=== PATIENT | female | born 1985 | race Caucasian/White ===

== ENCOUNTER 2022-02-24 16:48 | Emergency (ER) | payer MEDICAID ==
[~2022-02-24 16:48] MED LIST: ACET325T38 PO; ACHD5005 PO; CALC500T7 PO; CPR500T PO; DCS100C PO; FRS325T PO; IBP600T1 PO; Ibuprofen PO; LBT200T PO; NITR-65 PO; OXYC-12 PO; OXYC1TAB87 PO; PREN1TAB39 PO; PRM25T PO; SILV25CR TP
[2022-02-24] MEDS ORDERED: KETOROLAC 30 MG/ML VIAL IVP ONE (17:15)
[2022-02-24] MEDS ORDERED: fentaNYL INJ 100 MCG/2 ML AMP IVP ONE (17:15)
--- NOTE | 2022-02-24 17:15 | ED Cardiac General ---
History of Present Illness General Chief Complaint: Chest Pain Stated Complaint: CHEST PAIN,N/V,ABD PAIN Source: patient Exam Limitations: no limitations History of Present Illness Date Seen by Provider: Feb 24, 2022 Time Seen by Provider: 17:14 ASA po POT ROOM TAPPER: No Allergies and Home Medications Allergies Coded Allergies: No Known Drug Allergies (Verified , 12/13/07) Patient Home Medication List Home Medication List Reviewed: Yes Calcium Carbonate (Tums) 200 Mg Tab.chew, 200 MG PO Q4H, (Reported) Entered as Reported by: LASHAUN BRAVO on 03/31/132048 Docusate Sodium (Colace) 100 Mg Cap, 100 MG PO BID Prescribed by: SKYLER PADILLA on 10/13/13 09 Ferrous Sulfate (Feosol Tab) 325 Mg Tab, 325 MG PO DAILY@0700 Prescribed by: SKYLER PADILLA on 10/13/13 09 Labetalol Hcl (Labetolol) 200 Mg Tab, 200 MG PO TID Prescribed by: RAMYA PATTON on 10/23/13 134 Lisinopril/Hydrochlorothiazide (Lisinopril-Hctz 10-12.5 mg Tab) 10 Mg-12.5 Mg Tablet, 1 EACH PO DAILY Prescribed by: DANNIELLE HOGAN on 02/24/222045 Metronidazole (Metronidazole) 500 Mg Tablet, 500 MG PO BID Prescribed by: DANNIELLE HOGAN on 02/24/222045 Oxycodone Hcl/Acetaminophen (Percocet 5-325 Mg Tablet) 1 Each Tablet, 1-2 EACH PO q4-6 hr PRN for PAIN Prescribed by: RAMYA PATTON on 10/23/13 134 Vits W-Ca,Fe,Fa(<1MG) () 1 Each Tablet, 1 EACH PO DAILY, (Reported) Entered as Reported by: MELODY DUARTE on 06/03/11 0945 [Ibuprofen] 600 MG TAB, 600 MG PO Q6H PRN for PAIN Prescribed by: SKYLER PADILLA on 10/13/13 0940 Past Wvnzlcl-Hqucrg-Ivzjgi Hx Patient Social History Tobacco Use?: Yes Substance use?: No Alcohol Use?: Yes Pt feels they are or have been: No Immunizations Up To Date Tetanus Booster (TDap): Less than 5yrs Influenza Vaccine Up-to-Date: No; Not Current First/Initial COVID19 Vaccinat: YES Second COVID19 Vaccination Lakhwinder: YES Past Medical History Surgery/Hospitalization HX: SUZANNA, APPY, C-SECTIONS Reproductive Disorders: No Adverse Reaction/Blood Tranf: No Family Medical History Completed stroke 19 FATHER (PGF) Hypertension 19 FATHER No Family History of: AIDS Abdominal aortic aneurysm Georgi's disease Alcoholism Alzheimer's disease Aphasia Arthritis Asthma Cancer of mouth Cardiovascular disease Cataracts Colon cancer Congenital disease Congenital heart disease Coronary thrombosis Cystic fibrosis Deafness or hearing loss Dementia Diabetes mellitus Drug abuse Dysphasia Fibrocystic disease of breast Gastroenteritis Glaucoma Headache disorder Hypercholesterolemia Infertility Kidney disease Myocardial infarction Neoplasm Osteoporosis Parkinson's disease Prostate cancer Psychosocial problem Respiratory disorder Seizure disorder Severe allergy Thyroid disease Tuberculosis Visual disorder Physical Exam Vital Signs Vital Signs - First Documented 02/24/22 17:00 Temp 37.0 Pulse 68 Resp 18 B/P (MAP) 195/116 (142) Capillary Refill : Height, Weight, BMI Height: 4'9.00" Weight: 170lbs. 8.0oz. 77.470011zh; BMI Method:Stated Progress/Results/Core Measures Results/Orders Lab Results Laboratory Tests Test 02/24/22 17:02 02/24/22 19:55 Range/Units White Blood Count 11.6 H 4.3-11.0 10^3/uL Red Blood Count 3.31 L 3.80-5.11 10^6/uL Hemoglobin 12.8 11.5-16.0 g/dL Hematocrit 36 35-52 % Mean Corpuscular Volume 107 H 80-99 fL Mean Corpuscular Hemoglobin 39 H 25-34 pg Mean Corpuscular Hemoglobin Concent 36 32-36 g/dL Red Cell Distribution Width 13.6 10.0-14.5 % Platelet Count 296 130-400 10^3/uL Mean Platelet Volume 10.6 9.0-12.2 fL Immature Granulocyte % (Auto) 0 % Neutrophils (%) (Auto) 66 42-75 % Lymphocytes (%) (Auto) 25 12-44 % Monocytes (%) (Auto) 8 0-12 % Eosinophils (%) (Auto) 1 0-10 % Basophils (%) (Auto) 0 0-10 % Neutrophils # (Auto) 7.6 1.8-7.8 10^3/uL Lymphocytes # (Auto) 2.9 1.0-4.0 10^3/uL Monocytes # (Auto) 0.9 0.0-1.0 10^3/uL Eosinophils # (Auto) 0.1 0.0-0.3 10^3/uL Basophils # (Auto) 0.0 0.0-0.1 10^3/uL Immature Granulocyte # (Auto) 0.0 0.0-0.1 10^3/uL D-Dimer 0.36 0.00-0.49 UG/ML Sodium Level 141 135-145 MMOL/L Potassium Level 2.9 L 3.6-5.0 MMOL/L Chloride Level 106 98-107 MMOL/L Carbon Dioxide Level 22 21-32 MMOL/L Anion Gap 13 5-14 MMOL/L Blood Urea Nitrogen 8 7-18 MG/DL Creatinine 0.69 0.60-1.30 MG/DL Estimat Glomerular Filtration Rate 115 BUN/Creatinine Ratio 12 Glucose Level 111 H 70-105 MG/DL Calcium Level 8.0 L 8.5-10.1 MG/DL Corrected Calcium 8.2 L 8.5-10.1 MG/DL Total Bilirubin 0.6 0.1-1.0 MG/DL Aspartate Amino Transf (AST/SGOT) 19 5-34 U/L Alanine Aminotransferase (ALT/SGPT) 12 0-55 U/L Alkaline Phosphatase 43 40-136 U/L Total Creatine Kinase 35 29-168 U/L Creatine Kinase MB 0.4 <6.6 NG/ML Troponin I 0.030 H < 0.028 <0.028 NG/ML Total Protein 6.1 L 6.4-8.2 GM/DL Albumin 3.7 3.2-4.5 GM/DL Lipase 9 8-78 U/L My Orders Orders - DANNIELLE HOGAN APRN Ketorolac Injection (Toradol Injection) (02/24/22 17:15) Fentanyl Inj (Sublimaze Injection) (02/24/22 17:15) Cbc With Automated Diff (02/24/22 17:13) Comprehensive Metabolic Panel (02/24/22 17:13) Troponin I Rg (02/24/22 17:13) Fibrin Degradation Products (02/24/22 17:13) Lipase (02/24/22 17:13) Creatine Kinase (02/24/22 17:13) Creatine Kinase Mb (02/24/22 17:13) Chest 1 View, Ap/Pa Only (02/24/22 17:29) Nitroglycerin 0.4 Mg Btl 25's (Nitrostat (02/24/22 18:15) Aspirin Chewable Tablet (Baby Aspirin Ch (02/24/22 18:15) Potassium Cl 10meq/50ml Ivpb (Kcl 10 Meq (02/24/22 18:45) Ns Iv 1000 Ml (Sodium Chloride 0.9%) (02/24/22 18:45) Metoprolol Tartrate Injection (Lopressor (02/24/22 18:45) Hydromorphone Injection (Dilaudid Inject (02/24/22 18:45) Ct Abdomen/Pelvis W (02/24/22 18:37) Potassium Chloride (Tablet) (K Dur Table (02/24/22 18:45) Ondansetron Injection (Zofran Injectio (02/24/22 18:45) Iohexol Injection (Omnipaque 350 Mg/Ml 1 (02/24/22 18:45) Received Contrast (Hold Metformin- Contr (02/24/22 18:45) Ns (Ivpb) (Sodium Chloride 0.9% Ivpb Bag (02/24/22 18:45) Metronidazole Tablet (Flagyl Tablet) (02/24/22 19:30) Hydrocodone/Apap 5/325 Tablet (Lortab 5 (02/24/22 19:30) Troponin I Rg (02/24/22 19:17) Clonidine Tablet (Catapres Tablet) (02/24/22 20:30) Rx-Hydrocodone/Apap 5-325 Mg (Rx-Vicodin (02/24/22 21:00) Medications Given in ED Vital Signs/I&O 02/24/22 02/24/22 17:00 21:05 Temp 37.0 37.0 Pulse 68 75 Resp 18 18 B/P (MAP) 195/116 (142) 169/98 02/25/22 00:00 Intake Total 1000 ml Balance 1000 ml Departure Impression Primary Impression: Colitis Additional Impression: Hypertension Departure-Patient Inst. Decision time for Depature: 20:42 Referrals: NO,LOCAL PHYSICIAN (PCP/Family) Primary Care Physician Patient Instructions: Colitis (DC), High Blood Pressure ED Add. Discharge Instructions: Plan: 1. Follow up with [facility] as directed. Call first thing in the morning to schedule urgent removal of IUD. 2. Take Flagyl as directed and complete full course. 3. May take Ibuprofen 600mg by mouth every 6 hours as needed for pain and comfort. 4. Take Lortab 5/325mg by mouth every 6 hours for severe pain. 5. Return to ER for any new, concerning, or worsening symptoms. All discharge instructions reviewed with patient and/or family. Voiced understanding. Scripts Hydrocodone/Acetaminophen (Hydrocodone-Acetamin 5-325 mg) 5 Mg-325 Mg Tablet 1 TAB PO Q6H PRN for PAIN-MODERATE (5-7), #10 TAB 0 Refills Prov: DANNIELLE HOGAN TRIM INSTALLER 02/25/22 Lisinopril/Hydrochlorothiazide (Lisinopril-Hctz 10-12.5 mg Tab) 10 Mg-12.5 Mg Tablet 1 EACH PO DAILY for 30 Days, #30 TAB Prov: DANNIELLE HOGAN TRIM INSTALLER 02/24/22 Metronidazole (Metronidazole) 500 Mg Tablet 500 MG PO BID for 7 Days, #14 TAB 0 Refills Prov: DANNIELLE HOGAN TRIM INSTALLER 02/24/22 DANNIELLE HOGAN TRIM INSTALLER Feb 24, 2022 17:15
[2022-02-24 17:29] LABS: BASOPHILS % (AUTO) 0 % (0-10); EOSINOPHILS # (AUTO) 0.1 10^3/uL (0.0-0.3); EOSINOPHILS % (AUTO) 1 % (0-10); HEMATOCRIT 36 % (35-52); HEMOGLOBIN 12.8 g/dL (11.5-16.0); LYMPHOCYTES # (AUTO) 2.9 10^3/uL (1.0-4.0); LYMPHOCYTES % (AUTO) 25 % (12-44); MEAN CORPUSCULAR HEMOGLOBIN 39 pg (25-34); MEAN CORPUSCULAR HGB CONC 36 g/dL (32-36); MEAN CORPUSCULAR VOLUME 107 fL (80-99); MEAN PLATELET VOLUME 10.6 fL (9.0-12.2); MONOCYTES # (AUTO) 0.9 10^3/uL (0.0-1.0); MONOCYTES % (AUTO) 8 % (0-12); NEUTROPHILS # (AUTO) 7.6 10^3/uL (1.8-7.8); NEUTROPHILS % (AUTO) 66 % (42-75); PLATELET COUNT 296 10^3/uL (130-400); WHITE BLOOD COUNT 11.6 10^3/uL (4.3-11.0)
[2022-02-24 17:40] LABS: ALBUMIN 3.7 GM/DL (3.2-4.5)
[2022-02-24 17:41] LABS: POTASSIUM 2.9 MMOL/L (3.6-5.0)
[2022-02-24 17:43] LABS: TOTAL PROTEIN 6.1 GM/DL (6.4-8.2)
[2022-02-24 17:45] LABS: BILIRUBIN,TOTAL 0.6 MG/DL (0.1-1.0)
[2022-02-24 17:46] LABS: CREATININE SERUM 0.69 MG/DL (0.60-1.30)
--- NOTE | 2022-02-24 17:55 | Diagnostic Imaging Report ---
CHEST 1 VIEW, AP/PA ONLY Indication: Chest pain. Comparison: None available. Findings: No focal airspace disease in the visualized lungs. No pleural effusion or pneumothorax. Normal cardiomediastinal silhouette. Impression: 1. No acute cardiopulmonary process by portable radiography. Dictated by: Dictated on workstation # [id number]
[2022-02-24 17:57] LABS: CREATINE KINASE MB 0.4 NG/ML (<6.6)
[2022-02-24] MEDS ORDERED: NITROGLYCERIN 0.4 MG SL TABS BTL 25'S SL PRN (18:15)
[2022-02-24] MEDS ORDERED: ASPIRIN 81 MG CHEW (CHILDREN'S ASA) PO ONE (18:15)
[2022-02-24] MEDS ORDERED: IOHEXOL 350 MG/ML 100 ML (OMNIPAQUE 350) VIAL IV ONE (18:45)
[2022-02-24] MEDS ORDERED: ONDANSETRON 4 MG/2 ML (SDV) Z0FRAN IVP ONE (18:45)
[2022-02-24] MEDS ORDERED: HOLD METFORMIN - RECEIVED CONTRAST 20 ML VIAL IV SCH (18:45)
[2022-02-24] MEDS ORDERED: meTOprolol 5 MG/5 ML (LOPRESSOR) VIAL IV ONE (18:45)
[2022-02-24] MEDS ORDERED: HYDROmorphone 2 MG/ML VIAL (DILAUDID) IV ONE (18:45)
[2022-02-24] MEDS ORDERED: NS IV 1000 ML 1,000 ML IV ONE (18:45)
[2022-02-24] MEDS ORDERED: KCL 20 MEQ TAB (K-DUR) PO ONE (18:45)
[2022-02-24] MEDS ORDERED: NS 100 ML (IVPB) BAG IV ONE (18:45)
[2022-02-24] MEDS ORDERED: POTASSIUM CL 10MEQ/50ML IVPB 50 ML IV ONE (18:45)
--- NOTE | 2022-02-24 19:04 | Diagnostic Imaging Report ---
EXAMINATION: CT abdomen and pelvis with intravenous contrast. TECHNIQUE: Multiple contiguous axial images were obtained through the abdomen and pelvis after the uneventful administration of intravenous contrast. All CT scans use one or more of the following dose optimizing techniques: automated exposure control, MA and/or KvP adjustment based on patient size and exam type or iterative reconstruction. HISTORY: RUQ pain COMPARISON: None available. FINDINGS: Lung bases: The lung bases are clear. Solid organs: The liver is normal without focal lesion. The gallbladder is surgically absent. There is no biliary ductal dilation. Pancreas is normal. Spleen is normal. Adrenal glands are normal. There are left renal cysts which require no follow-up. Bowel: The stomach and small bowel are normal without obstruction. There is wall thickening of the right hemicolon. No findings of acute appendicitis. Peritoneum: There is no intraperitoneal free fluid or free air. No suspicious lymphadenopathy. Vasculature: Normal without aneurysm. Musculoskeletal: No suspicious osseous lesion or compression fracture. Pelvis: An IUD is present within the lower uterine body and cervix. The urinary bladder is normal. IMPRESSION: 1. Wall thickening of the right hemicolon which could be seen with infectious or inflammatory colitis. 2. IUD within the uterus appears to be within the lower uterine body and cervix. Consider correlation with ultrasound for confirmation of appropriate positioning. Dictated by: Dictated on workstation # [id number]
[2022-02-24] MEDS ORDERED: metroNIDAZOLE 500 MG (FLAGYL) TAB PO ONE (19:30)
[2022-02-24] MEDS ORDERED: HYDROcodone/APAP 5 MG/325 MG (LORTAB) TAB PO ONE (19:30)
[2022-02-24] MEDS ORDERED: cloNIDine 0.1 MG (CATAPRES) TAB PO ONE (20:30)
[2022-02-24] MEDS ORDERED: LISI1TAB44 PO (20:46)
[2022-02-24] MEDS ORDERED: METR-145 PO (20:46)
[2022-02-24 21:05] VITALS: BP 169/98
[2022-02-25] MEDS ORDERED: ACHD5005 PO (12:07)
== END 2022-02-24 21:07 | disposition home or self-care (01) ==
LOC: EDUNIT# 16:48 → ER 16:50
DX: K52.9 Noninfective gastroenteritis and colitis, unspecified (principal); I10 Essential (primary) hypertension; Z90.49 Acquired absence of other specified parts of digestive tract
CPT/HCPCS: 36415; 71045; 74177; 80053; 82550; 82553; 83690; 84484; 85025; 85379; 93005

== ENCOUNTER 2022-04-01 10:14 | Emergency (ER) | payer MEDICAID ==
[~2022-04-01] VITALS: Ht 145 cm; Wt 63.5 kg
[~2022-04-01 10:14] MED LIST changes: +LISI1TAB44 PO; +METR-145 PO
[2022-04-01] MEDS ORDERED: FAMOTIDINE 20MG/2ML IV (PEPCID) IV STA (11:08)
[2022-04-01 11:15] LABS: BASOPHILS # (AUTO) 0.1 10^3/uL (0.0-0.1); BASOPHILS % (AUTO) 0 % (0-10); EOSINOPHILS % (AUTO) 0 % (0-10); HEMATOCRIT 40 % (35-52); HEMOGLOBIN 13.9 g/dL (11.5-16.0); LYMPHOCYTES # (AUTO) 2.9 10^3/uL (1.0-4.0); LYMPHOCYTES % (AUTO) 14 % (12-44); MEAN CORPUSCULAR HEMOGLOBIN 38 pg (25-34); MEAN CORPUSCULAR HGB CONC 35 g/dL (32-36); MEAN CORPUSCULAR VOLUME 109 fL (80-99); MEAN PLATELET VOLUME 10.1 fL (9.0-12.2); MONOCYTES % (AUTO) 5 % (0-12); NEUTROPHILS # (AUTO) 16.8 10^3/uL (1.8-7.8); NEUTROPHILS % (AUTO) 81 % (42-75); PLATELET COUNT 601 10^3/uL (130-400); WHITE BLOOD COUNT 20.9 10^3/uL (4.3-11.0)
[2022-04-01] MEDS ORDERED: ONDANSETRON 4 MG/2 ML (SDV) Z0FRAN IVP ONE (11:15)
[2022-04-01] MEDS ORDERED: NS IV 1000 ML 1,000 ML IV SCH (11:15)
--- NOTE | 2022-04-01 11:19 | ED Abdominal Pain ---
General Chief Complaint: Abdominal/GI Problems Stated Complaint: NAUSEA | SOA | Nursing Triage Note: PT AMBULATORY TO ER. PT C/O N/V AND ABD PAIN ONSET 3 DAYS AGO. REPORTS SIMILAR S/S IN THE PAST AND WAS DX WITH COLITIS. PT REPORTS SOB ONSET THIS AM. 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 If there is a discrepancy in the x-ray read by the ER physician, the patient will be called back by hospital staff with the correct radioligist report. PMH of HTN, is here with complaints of abdominal pain, mainly in her right flank and right upper quadrant, and epigastric area, which began approximately 3 days ago with worsening intensity. Patient has associated nausea and vomiting along with that and has not had anything to eat for the past 3 days except for water. Denies fever, chills, URI symptoms, chest pain, palpitations, shortness of breath, diarrhea. Allergies and Home Medications Allergies Coded Allergies: No Known Drug Allergies (Verified , 12/13/07) Patient Home Medication List Home Medication List Reviewed: Yes Calcium Carbonate (Tums) 200 Mg Tab.chew, 200 MG PO Q4H, (Reported) Entered as Reported by: LASHAUN BRAVO on 03/31/132048 Docusate Sodium (Colace) 100 Mg Cap, 100 MG PO BID Prescribed by: SKYLER PADILLA on 10/13/13 09 Ferrous Sulfate (Feosol Tab) 325 Mg Tab, 325 MG PO DAILY@0700 Prescribed by: SKYLER PADILLA on 10/13/13 0940 Hydrocodone/Acetaminophen (Hydrocodone-Acetamin 5-325 mg) 5 Mg-325 Mg Tablet, 1 TAB PO Q6H PRN for PAIN-MODERATE (5-7) Prescribed by: DANNIELLE HOGAN on 02/25/22 1208 Labetalol Hcl (Labetolol) 200 Mg Tab, 200 MG PO TID Prescribed by: RAMYA PATTON on 10/23/13 1349 Lisinopril/Hydrochlorothiazide (Lisinopril-Hctz 10-12.5 mg Tab) 10 Mg-12.5 Mg Tablet, 1 EACH PO DAILY Prescribed by: DANNIELLE HOGAN on 02/24/22 204 Metronidazole (Metronidazole) 500 Mg Tablet, 500 MG PO BID Prescribed by: DANNIELLE HOGAN on 02/24/222045 Oxycodone Hcl/Acetaminophen (Percocet 5-325 Mg Tablet) 1 Each Tablet, 1-2 EACH PO q4-6 hr PRN for PAIN Prescribed by: RAMYA PATTON on 10/23/13 1349 Vits W-Ca,Fe,Fa(<1MG) () 1 Each Tablet, 1 EACH PO DAILY, (Reported) Entered as Reported by: MELODY DUARTE on 06/03/11 0945 [Ibuprofen] 600 MG TAB, 600 MG PO Q6H PRN for PAIN Prescribed by: SKYLER PADILLA on 10/13/13 0940 Review of Systems Review of Systems Constitutional: no symptoms reported EENTM: No Symptoms Reported Respiratory: No Symptoms Reported Cardiovascular: No Symptoms Reported Gastrointestinal: Abdominal Pain Genitourinary: No Symptoms Reported Musculoskeletal: no symptoms reported Skin: no symptoms reported Psychiatric/Neurological: No Symptoms Reported Endocrine: No Symptoms Reported Hematologic/Lymphatic: No Symptoms Reported Past Utrqsxx-Udqyfn-Svskgi Hx Patient Social History Tobacco type used: Cigarettes Smoking Status: Current Everyday Smoker Use of E-Cig and/or Vaping dev: No Substance use?: No Alcohol Use?: No Pt feels they are or have been: No Immunizations Up To Date Tetanus Booster (TDap): Less than 5yrs First/Initial COVID19 Vaccinat: RECEIVED, UNK WHEN Second COVID19 Vaccination Lakhwinder: RECEIVED, UNK WHEN COVID19 Vaccine Medicare Biller: UNK Past Medical History Surgery/Hospitalization HX: SUZANNA, APPY, C-SECTIONS Last Menstrual Period: Feb 18, 2022 Reproductive Disorders: No Adverse Reaction/Blood Tranf: No Family Medical History Completed stroke 19 FATHER (PGF) Hypertension 19 FATHER No Family History of: AIDS Abdominal aortic aneurysm Georgi's disease Alcoholism Alzheimer's disease Aphasia Arthritis Asthma Cancer of mouth Cardiovascular disease Cataracts Colon cancer Congenital disease Congenital heart disease Coronary thrombosis Cystic fibrosis Deafness or hearing loss Dementia Diabetes mellitus Drug abuse Dysphasia Fibrocystic disease of breast Gastroenteritis Glaucoma Headache disorder Hypercholesterolemia Infertility Kidney disease Myocardial infarction Neoplasm Osteoporosis Parkinson's disease Prostate cancer Psychosocial problem Respiratory disorder Seizure disorder Severe allergy Thyroid disease Tuberculosis Visual disorder Physical Exam Vital Signs Vital Signs - First Documented 04/01/22 10:18 Temp 36.4 Pulse 107 Resp 18 B/P (MAP) 127/94 (105) Pulse Ox 100 O2 Delivery Room Air Capillary Refill : Height/Weight/BMI Height: 4'9.00" Weight: 170lbs. 8.0oz. 77.692946kn; 30.00 BMI Method:Stated General Appearance: WD/WN, no apparent distress HEENT: PERRL/EOMI Neck: full range of motion Respiratory: chest non-tender, lungs clear, normal breath sounds, no respiratory distress Cardiovascular: regular rate, rhythm, no edema Gastrointestinal: normal bowel sounds, soft, no organomegaly, tenderness (Tenderness in the epigastrium, right upper quadrant, right CVA region) Extremities: normal range of motion Back: CVA tenderness (R) Neurologic/Psychiatric: alert, normal mood/affect, oriented x 3 Skin: normal color Lymphatic: no adenopathy Focused Exam Lactate Level 04/01/22 12:16: Lactic Acid Level 1.04 Lactic Acid Level Laboratory Tests Test 04/01/22 12:16 Lactic Acid Level 1.04 MMOL/L (0.50-2.00) Progress/Results/Core Measures Results/Orders Lab Results Laboratory Tests Test 04/01/22 10:36 04/01/22 11:30 04/01/22 12:16 Range/Units White Blood Count 20.9 H 4.3-11.0 10^3/uL Red Blood Count 3.66 L 3.80-5.11 10^6/uL Hemoglobin 13.9 11.5-16.0 g/dL Hematocrit 40 35-52 % Mean Corpuscular Volume 109 H 80-99 fL Mean Corpuscular Hemoglobin 38 H 25-34 pg Mean Corpuscular Hemoglobin Concent 35 32-36 g/dL Red Cell Distribution Width 13.2 10.0-14.5 % Platelet Count 601 H 130-400 10^3/uL Mean Platelet Volume 10.1 9.0-12.2 fL Immature Granulocyte % (Auto) 0 % Neutrophils (%) (Auto) 81 H 42-75 % Lymphocytes (%) (Auto) 14 12-44 % Monocytes (%) (Auto) 5 0-12 % Eosinophils (%) (Auto) 0 0-10 % Basophils (%) (Auto) 0 0-10 % Neutrophils # (Auto) 16.8 H 1.8-7.8 10^3/uL Lymphocytes # (Auto) 2.9 1.0-4.0 10^3/uL Monocytes # (Auto) 1.0 0.0-1.0 10^3/uL Eosinophils # (Auto) 0.0 0.0-0.3 10^3/uL Basophils # (Auto) 0.1 0.0-0.1 10^3/uL Immature Granulocyte # (Auto) 0.1 0.0-0.1 10^3/uL Neutrophils % (Manual) 85 % Lymphocytes % (Manual) 12 % Monocytes % (Manual) 3 % Eosinophils % (Manual) 0 % Basophils % (Manual) 0 % Band Neutrophils 0 % Macrocytosis SLIGHT Urine Color YELLOW Urine Clarity CLEAR Urine pH 5.5 5-9 Urine Specific Leslie 1.020 1.016-1.022 Urine Protein NEGATIVE NEGATIVE Urine Glucose (UA) NEGATIVE NEGATIVE Urine Ketones 1+ H NEGATIVE Urine Nitrite NEGATIVE NEGATIVE Urine Bilirubin NEGATIVE NEGATIVE Urine Urobilinogen 0.2 < = 1.0 MG/DL Urine Leukocyte Esterase 1+ H NEGATIVE Urine RBC (Auto) NEGATIVE NEGATIVE Urine RBC RARE /HPF Urine WBC 5-10 H /HPF Urine Squamous Epithelial Cells 5-10 /HPF Urine Crystals NONE /LPF Urine Bacteria MODERATE H /HPF Urine Casts PRESENT /LPF Urine Hyaline Casts 0-2 H /LPF Urine Mucus NEGATIVE /LPF Urine Culture Indicated YES Urine Test NEGATIVE NEGATIVE Sodium Level 137 135-145 MMOL/L Potassium Level 2.9 L 3.6-5.0 MMOL/L Chloride Level 99 98-107 MMOL/L Carbon Dioxide Level 12 L 21-32 MMOL/L Anion Gap 26 H 5-14 MMOL/L Blood Urea Nitrogen 43 H 7-18 MG/DL Creatinine 1.69 H 0.60-1.30 MG/DL Estimat Glomerular Filtration Rate 40 BUN/Creatinine Ratio 25 Glucose Level 100 70-105 MG/DL Calcium Level 9.7 8.5-10.1 MG/DL Corrected Calcium 9.5 8.5-10.1 MG/DL Total Bilirubin 0.7 0.1-1.0 MG/DL Aspartate Amino Transf (AST/SGOT) 24 5-34 U/L Alanine Aminotransferase (ALT/SGPT) 24 0-55 U/L Alkaline Phosphatase 64 40-136 U/L Total Protein 7.8 6.4-8.2 GM/DL Albumin 4.3 3.2-4.5 GM/DL Lipase 19 8-78 U/L Urine Opiates Screen NEGATIVE NEGATIVE Urine Oxycodone Screen NEGATIVE NEGATIVE Urine Methadone Screen NEGATIVE NEGATIVE Urine Propoxyphene Screen NEGATIVE NEGATIVE Urine Barbiturates Screen NEGATIVE NEGATIVE Ur Tricyclic Antidepressants Screen NEGATIVE NEGATIVE Urine Phencyclidine Screen NEGATIVE NEGATIVE Urine Amphetamines Screen NEGATIVE NEGATIVE Urine Methamphetamines Screen NEGATIVE NEGATIVE Urine Benzodiazepines Screen NEGATIVE NEGATIVE Urine Cocaine Screen NEGATIVE NEGATIVE Urine Cannabinoids Screen POSITIVE H NEGATIVE Serum Alcohol < 10 <10 MG/DL Influenza Type A (RT-PCR) Not Detected Not Detecte Influenza Type B (RT-PCR) Not Detected Not Detecte SARS-CoV-2 RNA (RT-PCR) Not Detected Not Detecte Lactic Acid Level 1.04 0.50-2.00 MMOL/L My Orders Orders - LUCINDA HEBERT MD Alcohol (04/01/22 11:06) Cbc With Automated Diff (04/01/22 11:06) Comprehensive Metabolic Panel (04/01/22 11:06) Drug Screen Stat (Urine) (04/01/22 11:06) Hcg,Qualitative Urine (04/01/22 11:06) Lactic Acid Analyzer (04/01/22 11:06) Lipase (04/01/22 11:06) Ua Culture If Indicated (04/01/22 11:06) Ct Abdomen/Pelvis W (04/01/22 11:08) Ed Iv/Invasive Line Start (04/01/22 11:08) Ns Iv 1000 Ml (Sodium Chloride 0.9%) (04/01/22 11:15) Ondansetron Injection (Zofran Injectio (04/01/22 11:15) Famotidine Injection (Pepcid Injection) (04/01/22 11:08) Manual Differential (04/01/22 10:36) Covid 19 Inhouse Test (04/01/22 11:19) Influenza A And B By Pcr (04/01/22 11:19) Ketorolac Injection (Toradol Injection) (04/01/22 11:30) Urine Culture (04/01/22 10:36) Iohexol Injection (Omnipaque 350 Mg/Ml 1 (04/01/22 11:45) Received Contrast (Hold Metformin- Contr (04/01/22 11:45) Ns (Ivpb) (Sodium Chloride 0.9% Ivpb Bag (04/01/22 11:45) Potassium Chloride (Tablet) (K Dur Table (04/01/22 13:00) Oxycodone/Apap 5/325mg Tablet (Percocet (04/01/22 13:00) Medications Given in ED Current Medications Medications Dose Ordered Sig/Fernando Route Start Time Stop Time Status Last Admin Dose Admin Iohexol 100 ml ONCE ONCE IV 04/01/22 11:45 04/01/22 11:46 DC 04/01/22 11:53 73 ML Ketorolac Tromethamine 15 mg ONCE ONCE IVP 04/01/22 11:30 04/01/22 11:31 DC 04/01/22 11:25 15 MG Ondansetron HCl 4 mg ONCE ONCE IVP 04/01/22 11:15 04/01/22 11:16 DC 04/01/22 11:15 4 MG Oxycodone/ Acetaminophen 1 tab ONCE ONCE PO 04/01/22 13:00 04/01/22 13:01 DC 04/01/22 12:55 1 TAB Potassium Chloride 40 meq ONCE ONCE PO 04/01/22 13:00 04/01/22 13:01 DC 04/01/22 12:55 40 MEQ Sodium Chloride 100 ml ONCE ONCE IV 04/01/22 11:45 04/01/22 11:46 DC 04/01/22 11:53 80 ML Vital Signs/I&O 04/01/22 04/01/22 04/01/22 04/01/22 10:18 10:55 11:29 13:26 Temp 36.4 Pulse 107 99 86 97 Resp 18 18 B/P (MAP) 127/94 (105) 128/84 (99) 122/69 (86) 140/81 (100) Pulse Ox 100 99 100 99 O2 Delivery Room Air Room Air Room Air Room Air Blood Pressure Mean: 99 Progress Progress Note : Progress Note 1. NEPHROLITHIASIS, NONOBSTRUCTING & ACUTE CYSTITIS: - CT ABD: Nonobstructing kidney stone - CBC: WBC mildly elevated - UA positive for leukocyte esterase, WBC, bacteria - Zofran iv/ Pepcid 20mg iv/ NS IVF - Toradol for pain/ then later gave one tab Percocet -Advised naproxen every 4 hours for pain with extreme Tylenol every 4 hours breakthrough pain -Prescription for Zofran ODT every 6 hours as needed for nausea and vomiting -Advised adequate hydration -Follow-up with PCP in the next 3 to 5 days -Prescription for nitrofurantoin 100 mg twice daily for 7 days -The patient was seen in the ED, and treated appropriately to presentation at a specific point in time. Patient is informed that there is a possibility that disease and illness can evolve and change in acuity rapidly or slowly after patient is discharged from the ER. Precautionary advice given to the patient for immediate return to ER if symptoms worsen or do not resolve, and to seek emergency care sooner rather than later. Pt also advised on the importance of PCP follow up and compliance with management and follow up plan with PCP and/or specialist, as this is part of the management plan. Pt verbally expressed understanding. 2. DEHYDRATION/ SOLITARIO/ MILD HYPOKALEMIA: -Dehydration and hypokalemia due to vomiting - s, creatinine is 1.69 with BUN of 43 - s. K is 2.9 - NS IVF bolus STAT - Oral potasium repletion - Prescription for oral Prescription 40mEq daily for 2 days. Follow-up with PCP in the next 3 to 5 days for repeat labs to check potassium level. 3. MARIJUANA ABUSE: - UDS is positive for marijuana -Advised to stop using marijuana as this can trigger abdominal pain and make nausea and vomiting worse Departure Impression Primary Impression: Acute cystitis without hematuria Additional Impressions: Nephrolithiasis Hypokalemia Dehydration SOLITARIO (acute kidney injury) Disposition: 01 HOME, SELF-CARE Condition: Improved Departure-Patient Inst. Referrals: HAYDER LEZAMA APRN (PCP) Primary Care Physician [facility]AY[facility] (Family) Primary Care Physician Patient Instructions: Renal Colic (DC), Acute Kidney Injury, High Potassium Diet, Acute Cystitis (DC), Kidney Stone Diet, Why Water Is Important to Health, Dehydration, Adult ED Add. Discharge Instructions: -Advised naproxen every 4 hours for pain with extreme Tylenol every 4 hours breakthrough pain -Prescription for Zofran ODT every 6 hours as needed for nausea and vomiting -Advised adequate hydration -Follow-up with PCP in the next 3 to 5 days - Patient is informed that there is a possibility that disease and illness can evolve and change in acuity rapidly or slowly after patient is discharged from the ER. Precautionary advice given to the patient for immediate return to ER if symptoms worsen or do not resolve, and to seek emergency care sooner rather than later. Pt also advised on the importance of PCP follow up and compliance with management and follow up plan with PCP and/or specialist, as this is part of the management plan. Pt verbally expressed understanding. - Prescription for oral Prescription 40mEq daily for 2 days. Follow-up with PCP in the next 3 to 5 days for repeat labs to check potassium level. -Prescription for nitrofurantoin 100 mg twice daily for 7 days -Advised to stop using marijuana as this can trigger abdominal pain and make nausea and vomiting worse All discharge instructions reviewed with patient and/or family. Voiced underst anding. Scripts Ondansetron (Ondansetron Odt) 4 Mg Tab.rapdis 4 MG SL Q4H PRN for NAUSEA/VOMITING for 3 Days, #12 TAB Prov: LUCINDA HEBERT MD 04/01/22 Potassium Chloride (Potassium Chloride) 20 Meq Tablet.er 40 MEQ PO DAILY for 2 Days, #2 TAB Prov: LUCINDA HEBERT MD 04/01/22 Nitrofurantoin Macrocrystal (Nitrofurantoin) 100 Mg Capsule 100 MG PO Q12H for 7 Days, #14 CAP Prov: LUCINDA HEBERT MD 04/01/22 LUCINDA HEBERT MD Apr 01, 2022 11:19
[2022-04-01 11:20] LABS: ALBUMIN 4.3 GM/DL (3.2-4.5); BILIRUBIN,URINE NEGATIVE (NEGATIVE); CHLORIDE 99 MMOL/L (98-107); CLARITY,URINE CLEAR; COLOR,URINE YELLOW; GLUCOSE, URINE (UA) NEGATIVE (NEGATIVE); HCG,QUALITATIVE URINE NEGATIVE (NEGATIVE); KETONES,URINE 1+ (NEGATIVE); LEUKOCYTE ESTERASE ,URINE 1+ (NEGATIVE); NITRITE,URINE NEGATIVE (NEGATIVE); PH,URINE 5.5 (5-9); POTASSIUM 2.9 MMOL/L (3.6-5.0); PROTEIN,URINE NEGATIVE (NEGATIVE); SODIUM 137 MMOL/L (135-145)
[2022-04-01 11:21] LABS: CALCIUM 9.7 MG/DL (8.5-10.1)
[2022-04-01 11:23] LABS: CARBON DIOXIDE 12 MMOL/L (21-32); GLUCOSE 100 MG/DL (70-105); TOTAL PROTEIN 7.8 GM/DL (6.4-8.2)
[2022-04-01 11:24] LABS: BILIRUBIN,TOTAL 0.7 MG/DL (0.1-1.0)
[2022-04-01 11:26] LABS: ALKALINE PHOSPHATASE 64 U/L (40-136); CREATININE SERUM 1.69 MG/DL (0.60-1.30); GFR ESTIMATED 40
[2022-04-01 11:27] LABS: BUN/CREATININE RATIO 25
[2022-04-01 11:28] LABS: AMPHETAMINE SCREEN, URINE NEGATIVE (NEGATIVE); BARBITURATE SCREEN URINE NEGATIVE (NEGATIVE); BENZODIAZEPINES SCREEN URINE NEGATIVE (NEGATIVE); CANNABINOID SCREEN, URINE POSITIVE (NEGATIVE); COCAINE SCREEN URINE NEGATIVE (NEGATIVE); METHADONE STAT NEGATIVE (NEGATIVE); OPIATE SCREEN URINE NEGATIVE (NEGATIVE); OXYCODONE STAT NEGATIVE (NEGATIVE); PROPOXYPHENE STAT NEGATIVE (NEGATIVE); TRICYCLIC ANTIDEPRESSANTS SCRE NEGATIVE (NEGATIVE)
[2022-04-01 11:29] LABS: ALANINE AMINOTRANSFERASE 24 U/L (0-55)
[2022-04-01 11:30] LABS: LIPASE 19 U/L (8-78)
[2022-04-01] MEDS ORDERED: KETOROLAC 30 MG/ML VIAL IVP ONE (11:30)
[2022-04-01 11:41] LABS: BACTERIA,URINE MODERATE /HPF; HYALINE CASTS, URINE 0-2 /LPF; RBC,URINE RARE /HPF
[2022-04-01] MEDS ORDERED: IOHEXOL 350 MG/ML 100 ML (OMNIPAQUE 350) VIAL IV ONE (11:45)
[2022-04-01] MEDS ORDERED: HOLD METFORMIN - RECEIVED CONTRAST 20 ML VIAL IV SCH (11:45)
[2022-04-01] MEDS ORDERED: NS 100 ML (IVPB) BAG IV ONE (11:45)
[2022-04-01 11:48] LABS: BAND NEUTROPHILS 0 %; BASOPHILS % (MANUAL) 0 %; EOSINOPHILS % (MANUAL) 0 %; LYMPHOCYTES % (MANUAL) 12 %; MONOCYTES % (MANUAL) 3 %; NEUTROPHILS % (MANUAL) 85 %
--- NOTE | 2022-04-01 12:22 | Diagnostic Imaging Report ---
PROCEDURE: CT abdomen and pelvis with contrast. TECHNIQUE: Multiple contiguous axial images were obtained through the abdomen and pelvis after administration of intravenous contrast. Auto Exposure Controls were utilized during the CT exam to meet ALARA standards for radiation dose reduction. All CT scans use one or more of the following dose optimizing techniques: automated exposure control, MA and/or KvP adjustment based on patient size and exam type or iterative reconstruction. INDICATION: Nausea and abdominal pain. Correlation is made with prior CT from 02/24/2022. The lung bases are clear. The liver does show some parenchymal heterogeneity but no discrete mass is identified. Gallbladder surgically absent. There is no biliary ductal dilatation. The pancreas and spleen are unremarkable. No adrenal mass is identified. Kidneys do contain multiple small calcific densities consistent with nonobstructing calculi. Low-attenuation lesions in the left kidney are also noted, suggestive of cysts. No definite ureteral calculi or hydronephrosis is identified. Aorta is nonaneurysmal. The small and large bowel loops are normal caliber. There is no obstruction. Bladder is unremarkable. The uterus does contain IUD. IUD appears to be in similar position to the exam from February, slightly low in the region of the lower uterine segment and cervix. There is no ascites. No inflammatory changes are seen. IMPRESSION: 1. Bilateral nonobstructing nephrolithiasis and left renal cysts. No ureteral calculi or hydronephrosis is detected. Dictated by: Dictated on workstation # [id number]
[2022-04-01] MEDS ORDERED: KCL 20 MEQ TAB (K-DUR) PO ONE (13:00)
[2022-04-01] MEDS ORDERED: oxyCODONE/APAP 5/325MG (PERCOCET 5) TABLET PO ONE (13:00)
[2022-04-01] MEDS ORDERED: NITR100C PO (13:43)
[2022-04-01] MEDS ORDERED: ONDA4TAB11 SL (13:43)
[2022-04-01] MEDS ORDERED: POTA-51 PO (13:43)
[2022-04-01 13:47] VITALS: BP 140/81
== END 2022-04-01 13:47 | disposition home or self-care (01) ==
LOC: EDUNIT# 10:14 → ER 10:16
DX: N30.00 Acute cystitis without hematuria (principal); N20.0 Calculus of kidney; E87.6 Hypokalemia; E86.0 Dehydration; N17.9 Acute kidney failure, unspecified; F17.210 Nicotine dependence, cigarettes, uncomplicated; Z20.822 Contact with and (suspected) exposure to COVID-19
CPT/HCPCS: 36415; 74177; 80053; 80306; 80320; 81000; 83605; 83690; 84703; 85007; 85027; 87077; 87088; 87636

== ENCOUNTER 2022-04-04 22:11 | Inpatient (IN) | payer MEDICAID ==
[~2022-04-04] VITALS: Ht 147.3 cm; Wt 73.5 kg
[~2022-04-04 22:11] MED LIST changes: +NITR100C PO; +ONDA4TAB11 SL; +POTA-51 PO
--- NOTE | 2022-04-04 22:36 | ED General ---
General Chief Complaint: COVID19 Suspect/Confirmed Stated Complaint: VOMITING/BODYACHES Nursing Triage Note: PT ARRIVAL TO ER VIA PRIVATE VEHICLE WITH COMPLAINTS OF BODY ACHES, VOMITING, ANXIETY, KIDNEY PAIN, UTI, X2 WEEKS. PATIENT STATES THAT SHE HAS BEEN SEEN HERE TWICE RECENTLY FOR SAME COMPLAINTS. PT DENIES NEGATIVE COVID. PATIENT STATES THAT SHE WAS TOLD SHE HAD A UTI, KIDNEY STONE, AND WAS PUT ON ANTIBIOTICS, TYLENOL AND IBUPROFEN FOR PAIN, AND WAS TOLD TO FOLLOW UP. PATIENT STATES THAT SHE HASN'T HAD TIME TO FOLLOW UP. Source of Information: Patient Exam Limitations: No Limitations History of Present Illness Date Seen by Provider: Apr 04, 2022 Time Seen by Provider: 22:27 Initial Comments Patient is a 36-year-old female who presents the emergency room with a chief complaint of body aches, abdominal pain mid epigastric and lower, nausea vomiting. Patient states that she has not stopped vomiting for 2 days. She was seen in February, labs and CAT scan, diagnosed with colitis, had a follow-up appointment at [facility] was put on new blood pressure medications. Continued to feel poorly and then had another ER visit 3 days ago had more labs and CT which showed urinary tract infection, acute kidney injury and significant leukocytosis. She was put on Macrobid. She states she is continue to feel worse and worse. No chest pain or shortness of breath. No cough. She denies fevers or chills. Significant abdominal cramping, taking her medication but having difficulty keeping it down. Only prior abdominal surgeries have been 3 C-sections. No allergies to medications. Nothing makes her pain any better or any worse. She states she has been tested for COVID recently and it has been negative. Started her period today. Has had an IUD since 2013. Identified on CAT scan in February as well as 3 days ago malpositioned. She states its past time to have it removed. Denies any abnormal vaginal discharge. Upon my entry into the room she is actively vomiting. Heart rate in the 140s. Good blood pressure. Normal oxygen saturations. Timing/Duration: 2-3 Days, Other (at least 2-3 weeks in origin) Severity: Severe Associated Systoms: Malaise, Nausea/Vomiting, Weakness Allergies and Home Medications Allergies Coded Allergies: No Known Drug Allergies (Verified , 12/13/07) Patient Home Medication List Home Medication List Reviewed: Yes Calcium Carbonate (Tums) 200 Mg Tab.chew, 200 MG PO Q4H, (Reported) Entered as Reported by: LASHAUN BRAVO on 03/31/132048 Docusate Sodium (Colace) 100 Mg Cap, 100 MG PO BID Prescribed by: SKYLER PADILLA on 10/13/13 09 Ferrous Sulfate (Feosol Tab) 325 Mg Tab, 325 MG PO DAILY@0700 Prescribed by: SKYLER PADILLA on 10/13/13 09 Hydrocodone/Acetaminophen (Hydrocodone-Acetamin 5-325 mg) 5 Mg-325 Mg Tablet, 1 TAB PO Q6H PRN for PAIN-MODERATE (5-7) Prescribed by: DANNIELLE HOGAN on 02/25/22 120 Labetalol Hcl (Labetolol) 200 Mg Tab, 200 MG PO TID Prescribed by: RAMYA PATTON on 10/23/13 134 Lisinopril/Hydrochlorothiazide (Lisinopril-Hctz 10-12.5 mg Tab) 10 Mg-12.5 Mg Tablet, 1 EACH PO DAILY Prescribed by: DANNIELLE HOGAN on 02/24/222045 Metronidazole (Metronidazole) 500 Mg Tablet, 500 MG PO BID Prescribed by: DANNIELLE HOGAN on 02/24/222045 Nitrofurantoin Macrocrystal (Nitrofurantoin) 100 Mg Capsule, 100 MG PO Q12H Prescribed by: LUCINDA HEBERT MD on 04/01/22 134 Ondansetron (Ondansetron Odt) 4 Mg Tab.rapdis, 4 MG SL Q4H PRN for NAUSEA/VOMITING Prescribed by: LUCINDA HEBERT MD on 04/01/22 134 Oxycodone Hcl/Acetaminophen (Percocet 5-325 Mg Tablet) 1 Each Tablet, 1-2 EACH PO q4-6 hr PRN for PAIN Prescribed by: RAMYA PATTON on 10/23/13 134 Potassium Chloride (Potassium Chloride) 20 Meq Tablet.er, 40 MEQ PO DAILY Prescribed by: LUCINDA HEBERT MD on 04/01/22 134 Vits W-Ca,Fe,Fa(<1MG) () 1 Each Tablet, 1 EACH PO DAILY, (Reported) Entered as Reported by: MELODY DUARTE on 06/03/11 0945 [Ibuprofen] 600 MG TAB, 600 MG PO Q6H PRN for PAIN Prescribed by: SKYLER PADILLA on 10/13/13 0940 Review of Systems Review of Systems Constitutional: see HPI, malaise, weakness EENTM: no symptoms reported Respiratory: no symptoms reported Cardiovascular: no symptoms reported Gastrointestinal: abdominal pain, nausea, vomiting Genitourinary: no symptoms reported : No LMP: Apr 04, 2022 Musculoskeletal: other (Body aches) Skin: no symptoms reported Psychiatric/Neurological: Anxiety All Other Systems Reviewed Negative Unless Noted: Yes Past Jkjywcr-Eejasc-Gxyilk Hx Patient Social History Tobacco Use?: No Use of E-Cig and/or Vaping dev: No Substance use?: No Alcohol Use?: No Pt feels they are or have been: No Immunizations Up To Date Tetanus Booster (TDap): Less than 5yrs Influenza Vaccine Up-to-Date: No; Not Current First/Initial COVID19 Vaccinat: RECEIVED, UNK WHEN Second COVID19 Vaccination Lakhwinder: RECEIVED, UNK WHEN Third COVID19 Vaccination Date: RECEIVED, UNK WHEN Past Medical History Surgery/Hospitalization HX: SUZANNA, APPY, C-SECTIONS Reproductive Disorders: No Adverse Reaction/Blood Tranf: No Family Medical History Completed stroke 19 FATHER (PGF) Hypertension 19 FATHER No Family History of: AIDS Abdominal aortic aneurysm Georgi's disease Alcoholism Alzheimer's disease Aphasia Arthritis Asthma Cancer of mouth Cardiovascular disease Cataracts Colon cancer Congenital disease Congenital heart disease Coronary thrombosis Cystic fibrosis Deafness or hearing loss Dementia Diabetes mellitus Drug abuse Dysphasia Fibrocystic disease of breast Gastroenteritis Glaucoma Headache disorder Hypercholesterolemia Infertility Kidney disease Myocardial infarction Neoplasm Osteoporosis Parkinson's disease Prostate cancer Psychosocial problem Respiratory disorder Seizure disorder Severe allergy Thyroid disease Tuberculosis Visual disorder Physical Exam Vital Signs Vital Signs - First Documented 04/04/22 22:14 Temp 36.8 Pulse 146 Resp 22 B/P (MAP) 113/91 (98) Pulse Ox 100 O2 Delivery Room Air Capillary Refill : Less Than 3 Seconds Height, Weight, BMI Height: 4'9.00" Weight: 170lbs. 8.0oz. 77.276999px; 30.00 BMI Method:Stated General Appearance: WD/WN, Anxious, Moderate Distress, Other (Very thin hair) Eyes: Bilateral Eye Normal Inspection, Bilateral Eye PERRL, Bilateral Eye EOMI HEENT: PERRL/EOMI, Pharynx Normal Neck: Normal Inspection Respiratory: Lungs Clear, Normal Breath Sounds, No Accessory Muscle Use, No Respiratory Distress Cardiovascular: Regular Rate, Rhythm, Normal Peripheral Pulses Gastrointestinal: Soft, Abnormal Bowel Sounds (Slightly hypoactive); No Distended, No Guarding; Tenderness (Epigastric tenderness, suprapubic tenderness) Genital/Rectal: Normal Genital Exam, Other (Scant dark brownish-red blood in the vaginal vault, swabs for wet prep Chlamydia and gonorrhea obtained. Mild cervical motion tenderness. Straw-colored clear vaginal discharge from the os; IUD removed intact) Extremity: Normal Inspection, Normal Range of Motion, No Pedal Edema Neurologic/Psychiatric: Alert, Oriented x3, No Motor/Sensory Deficits, Other (Anxious) Skin: Normal Color, Warm/Dry Focused Exam Lactate Level 04/04/22 23:05: Lactic Acid Level 2.03*H Time of Focused Exam: 01:00 Respiratory: Lungs Clear, Normal Breath Sounds, No Accessory Muscle Use, No Respiratory Distress Cardiovascular: Regular Rate, Rhythm, Tachycardia (107) Capillary Refill: Less Than 3 Seconds Peripheral Pulses: 2+ Radial Pulses (R), 2+ Radial Pulses (L) Skin: normal color, warm/dry Lactic Acid Level Laboratory Tests Test 04/04/22 23:05 Lactic Acid Level 2.03 MMOL/L (0.50-2.00) *H Within 3hrs of presentation: Admin fluids, Admin ABX, Blood cultures prior to ABX's, Focus exam, Lactate level Progress/Results/Core Measures Suspected Sepsis SIRS Temperature: Pulse: 146 Respiratory Rate: 22 Laboratory Tests 04/04/22 23:05: White Blood Count 25.7H Blood Pressure 113 /91 Mean: 98 04/04/22 23:05: Lactic Acid Level 2.03*H Laboratory Tests 04/04/22 23:05: Creatinine 1.40H, INR Comment 1.0, Platelet Count 597H, Total Bilirubin 0.8 Results/Orders Lab Results Laboratory Tests Test 04/04/22 22:45 04/04/22 23:05 04/05/22 01:03 Range/Units Urine Color YELLOW Urine Clarity SL CLOUDY Urine pH 5.5 5-9 Urine Specific [place] 1.025 H 1.016-1.022 Urine Protein 1+ H NEGATIVE Urine Glucose (UA) NEGATIVE NEGATIVE Urine Ketones 2+ H NEGATIVE Urine Nitrite POSITIVE H NEGATIVE Urine Bilirubin 2+ H NEGATIVE Urine Urobilinogen 0.2 < = 1.0 MG/DL Urine Leukocyte Esterase 2+ H NEGATIVE Urine RBC (Auto) 3+ H NEGATIVE Urine RBC 25-50 H /HPF Urine WBC 10-25 H /HPF Urine Squamous Epithelial Cells >50 H /HPF Urine Crystals NONE /LPF Urine Bacteria LARGE H /HPF Urine Casts PRESENT /LPF Urine Hyaline Casts 2-5 H /LPF Urine Mucus SMALL H /LPF Urine Culture Indicated CULTURE PENDING White Blood Count 25.7 H 4.3-11.0 10^3/uL Red Blood Count 3.30 L 3.80-5.11 10^6/uL Hemoglobin 12.8 11.5-16.0 g/dL Hematocrit 38 35-52 % Mean Corpuscular Volume 115 H 80-99 fL Mean Corpuscular Hemoglobin 39 H 25-34 pg Mean Corpuscular Hemoglobin Concent 34 32-36 g/dL Red Cell Distribution Width 13.2 10.0-14.5 % Platelet Count 597 H 130-400 10^3/uL Mean Platelet Volume 10.4 9.0-12.2 fL Immature Granulocyte % (Auto) 1 % Neutrophils (%) (Auto) 88 H 42-75 % Lymphocytes (%) (Auto) 7 L 12-44 % Monocytes (%) (Auto) 4 0-12 % Eosinophils (%) (Auto) 0 0-10 % Basophils (%) (Auto) 0 0-10 % Neutrophils # (Auto) 22.4 H 1.8-7.8 10^3/uL Lymphocytes # (Auto) 1.9 1.0-4.0 10^3/uL Monocytes # (Auto) 1.1 H 0.0-1.0 10^3/uL Eosinophils # (Auto) 0.0 0.0-0.3 10^3/uL Basophils # (Auto) 0.1 0.0-0.1 10^3/uL Immature Granulocyte # (Auto) 0.2 H 0.0-0.1 10^3/uL Neutrophils % (Manual) 88 % Lymphocytes % (Manual) 8 % Monocytes % (Manual) 2 % Atypical Lymphocytes 2 % Platelet Estimate ELEVATED Stomatocytes SLIGHT Prothrombin Time 13.7 12.2-14.7 SEC INR Comment 1.0 0.8-1.4 Activated Partial Thromboplast Time 32 24-35 SEC Sodium Level 139 135-145 MMOL/L Potassium Level 4.2 3.6-5.0 MMOL/L Chloride Level 106 98-107 MMOL/L Carbon Dioxide Level 9 *L 21-32 MMOL/L Anion Gap 24 H 5-14 MMOL/L Blood Urea Nitrogen 26 H 7-18 MG/DL Creatinine 1.40 H 0.60-1.30 MG/DL Estimat Glomerular Filtration Rate 50 BUN/Creatinine Ratio 19 Glucose Level 111 H 70-105 MG/DL Lactic Acid Level 2.03 *H 0.50-2.00 MMOL/L Calcium Level 10.1 8.5-10.1 MG/DL Corrected Calcium 9.9 8.5-10.1 MG/DL Total Bilirubin 0.8 0.1-1.0 MG/DL Aspartate Amino Transf (AST/SGOT) 19 5-34 U/L Alanine Aminotransferase (ALT/SGPT) 20 0-55 U/L Alkaline Phosphatase 66 40-136 U/L Total Protein 7.3 6.4-8.2 GM/DL Albumin 4.2 3.2-4.5 GM/DL Lipase 24 8-78 U/L Serum Test, Qualitative NEGATIVE NEGATIVE My Orders Orders - JOSE SCHWARZ MD Ed Iv/Invasive Line Start (04/04/22 22:36) Cbc With Automated Diff (04/04/22 22:36) Comprehensive Metabolic Panel (04/04/22 22:36) Lipase (04/04/22 22:36) Ua Culture If Indicated (04/04/22 22:36) Hcg,Qualitative Serum (04/04/22 22:36) Ns Iv 1000 Ml (Sodium Chloride 0.9%) (04/04/22 22:45) Ondansetron Injection (Zofran Injectio (04/04/22 22:45) Blood Culture (04/04/22 22:42) Urinalysis (04/04/22 22:42) Urine Culture (04/04/22 22:42) Protime With Inr (04/04/22 22:42) Partial Thromboplastin Time (04/04/22 22:42) Chest 1 View, Ap/Pa Only (04/04/22 22:42) Ed Iv/Invasive Line Start (04/04/22 22:42) Ed Iv/Invasive Line Start (04/04/22 22:42) Vital Signs Adult Sepsis Patie Q15M (04/04/22 22:42) O2 (04/04/22 22:42) Remove Rings In Anticipation O (04/04/22 22:42) Lactic Acid Analyzer (04/04/22 22:42) Manual Differential (04/04/22 23:05) Fentanyl Inj (Sublimaze Injection) (04/04/22 23:45) Arterial Blood Gas (04/05/22 00:41) Alcohol (04/05/22 00:41) Neisseria Gonorrhea Swab (04/05/22 00:43) Chlamydia Trachomatis Swab (04/05/22 00:43) Wet Prep (04/05/22 00:43) Meropenem (Merrem 500 Mg) (04/05/22 00:45) Metoclopramide Injection (Reglan Injecti (04/05/22 00:45) Diphenhydramine Injection (Benadryl Inje (04/05/22 00:45) Ns Iv 1000 Ml (Sodium Chloride 0.9%) (04/05/22 00:47) Salicylate (04/05/22 01:17) Medications Given in ED Current Medications Medications Dose Ordered Sig/Fernando Route Start Time Stop Time Status Last Admin Dose Admin Diphenhydramine HCl 25 mg ONCE ONCE IVP 04/05/22 00:45 04/05/22 00:47 DC 04/05/22 01:09 25 MG Fentanyl Citrate 50 mcg ONCE ONCE IVP 04/04/22 23:45 04/04/22 23:46 DC 04/05/22 00:00 50 MCG Meropenem 500 mg/ Sodium Chloride 100 ml @ 200 mls/hr ONCE ONCE IV 04/05/22 00:45 04/05/22 01:14 DC 04/05/22 01:08 200 MLS/HR Metoclopramide HCl 5 mg ONCE ONCE IVP 04/05/22 00:45 04/05/22 00:47 DC 04/05/22 01:09 5 MG Ondansetron HCl 8 mg ONCE ONCE IVP 04/04/22 22:45 04/04/22 22:46 DC 04/04/22 22:50 8 MG Vital Signs/I&O 04/04/22 22:14 Temp 36.8 Pulse 146 Resp 22 B/P (MAP) 113/91 (98) Pulse Ox 100 O2 Delivery Room Air Capillary Refill : Less Than 3 Seconds Blood Pressure Mean: 98 Progress Note : Time: 23:36 Progress Note Patient seen and evaluated by me, 36-year-old with abdominal pain, nausea and vomiting. Evaluation today includes a physical exam, sepsis protocol with CBC (leukocytosis 25,000) chemistry, coags, UA, test, chest x-ray, lactic acid. She is reevaluated at this time 2337 complaining of persistent pain and nausea. Treated at this time with normal saline and Zofran. We will add some fentanyl. Differential diagnosis based on history physical exam, pyelonephritis, pe rforated viscus due to recent colitis, sepsis, PID. As the patient has demonstrated dislodgment of her IUD on recent CT we will perform a pelvic exam, she may be septic due to PID and the IUD. She states she has had it in since 2013. Remainder of her labs are pending at this time. Departure Communication (Admissions) Time/Spoke to Admitting Phy: 01:[address] Umanzor Time/Spoke to Consulting Phy: 01:33 discussed/consulted with eICU Impression Primary Impression: Severe sepsis Additional Impressions: UTI (urinary tract infection) Qualified Codes: N39.0 - Urinary tract infection, site not specified; R31.9 - Hematuria, unspecified Cervicitis Metabolic acidosis Disposition: ADMITTED INPATIENT Condition: Stable Admissions Decision to Admit Reason: Admit from ER (General) Decision to Admit/Date: Apr 05, 2022 Time/Decision to Admit Time: 01:08 Departure-Patient Inst. Referrals: [facility] [place] Primary Care Physician JOSE SCHWARZ MD Apr 04, 2022 22:36
[2022-04-04] MEDS ORDERED: ONDANSETRON 4 MG/2 ML (SDV) Z0FRAN IVP ONE (22:45)
[2022-04-04] MEDS ORDERED: NS IV 1000 ML 1,000 ML IV SCH (22:45)
[2022-04-04 22:52] LABS: BILIRUBIN,URINE 2+ (NEGATIVE); CLARITY,URINE SL CLOUDY; COLOR,URINE YELLOW; GLUCOSE, URINE (UA) NEGATIVE (NEGATIVE); KETONES,URINE 2+ (NEGATIVE); LEUKOCYTE ESTERASE ,URINE 2+ (NEGATIVE); NITRITE,URINE POSITIVE (NEGATIVE); PH,URINE 5.5 (5-9); PROTEIN,URINE 1+ (NEGATIVE)
[2022-04-04 23:02] LABS: BACTERIA,URINE LARGE /HPF; RBC,URINE 25-50 /HPF; SQUAMOUS EPITHELIAL CELL,UR >50 /HPF
[2022-04-04 23:24] LABS: BASOPHILS # (AUTO) 0.1 10^3/uL (0.0-0.1); BASOPHILS % (AUTO) 0 % (0-10); EOSINOPHILS % (AUTO) 0 % (0-10); HEMATOCRIT 38 % (35-52); HEMOGLOBIN 12.8 g/dL (11.5-16.0); LYMPHOCYTES # (AUTO) 1.9 10^3/uL (1.0-4.0); LYMPHOCYTES % (AUTO) 7 % (12-44); MEAN CORPUSCULAR HEMOGLOBIN 39 pg (25-34); MEAN CORPUSCULAR HGB CONC 34 g/dL (32-36); MEAN CORPUSCULAR VOLUME 115 fL (80-99); MEAN PLATELET VOLUME 10.4 fL (9.0-12.2); MONOCYTES # (AUTO) 1.1 10^3/uL (0.0-1.0); MONOCYTES % (AUTO) 4 % (0-12); NEUTROPHILS # (AUTO) 22.4 10^3/uL (1.8-7.8); NEUTROPHILS % (AUTO) 88 % (42-75); PLATELET COUNT 597 10^3/uL (130-400); WHITE BLOOD COUNT 25.7 10^3/uL (4.3-11.0)
[2022-04-04 23:37] LABS: ALBUMIN 4.2 GM/DL (3.2-4.5); POTASSIUM 4.2 MMOL/L (3.6-5.0); PROTHROMBIN TIME PATIENT 13.7 SEC (12.2-14.7)
[2022-04-04 23:39] LABS: CALCIUM 10.1 MG/DL (8.5-10.1); LYMPHOCYTES % (MANUAL) 8 %; MONOCYTES % (MANUAL) 2 %; NEUTROPHILS % (MANUAL) 88 %
[2022-04-04 23:40] LABS: ATYPICAL LYMPHOCYTES 2 %; PLATELET ESTIMATE ELEVATED; STOMATOCYTES SLIGHT; TOTAL PROTEIN 7.3 GM/DL (6.4-8.2)
[2022-04-04 23:42] LABS: BILIRUBIN,TOTAL 0.8 MG/DL (0.1-1.0)
[2022-04-04 23:43] LABS: CREATININE SERUM 1.4 MG/DL (0.60-1.30)
[2022-04-04] MEDS ORDERED: fentaNYL INJ 100 MCG/2 ML AMP IVP ONE (23:45)
[2022-04-05] VITALS (18 sets, daily range): BP systolic 104–170; BP diastolic 58–118
[2022-04-05] MEDS ORDERED: METOCLOPRAMIDE INJ 10 MG/2 ML (REGLAN) IVP ONE (00:45)
[2022-04-05] MEDS ORDERED: MEROPENEM 500 MG in NS (IVPB) 100 ML IV ONE (00:45)
[2022-04-05] MEDS ORDERED: diphenhydrAMINE 50 MG/ML INJ (BENADRYL) IVP ONE (00:45)
[2022-04-05] MEDS ORDERED: NS IV 1000 ML 1,000 ML IV STA (00:47)
[2022-04-05 02:27] LABS: BASOPHILS # (AUTO) 0.1 10^3/uL (0.0-0.1); BASOPHILS % (AUTO) 0 % (0-10); EOSINOPHILS % (AUTO) 0 % (0-10); HEMATOCRIT 36 % (35-52); HEMOGLOBIN 12.1 g/dL (11.5-16.0); LYMPHOCYTES # (AUTO) 1.6 10^3/uL (1.0-4.0); LYMPHOCYTES % (AUTO) 7 % (12-44); MEAN CORPUSCULAR HEMOGLOBIN 39 pg (25-34); MEAN CORPUSCULAR HGB CONC 34 g/dL (32-36); MEAN CORPUSCULAR VOLUME 114 fL (80-99); MEAN PLATELET VOLUME 10.1 fL (9.0-12.2); MONOCYTES # (AUTO) 1.1 10^3/uL (0.0-1.0); MONOCYTES % (AUTO) 4 % (0-12); NEUTROPHILS % (AUTO) 88 % (42-75); PLATELET COUNT 521 10^3/uL (130-400); WHITE BLOOD COUNT 24.9 10^3/uL (4.3-11.0)
[2022-04-05 02:38] LABS: ALBUMIN 3.9 GM/DL (3.2-4.5); POTASSIUM 3.9 MMOL/L (3.6-5.0)
[2022-04-05 02:39] LABS: CALCIUM 9.1 MG/DL (8.5-10.1)
[2022-04-05 02:42] LABS: BILIRUBIN,TOTAL 0.7 MG/DL (0.1-1.0)
[2022-04-05 02:43] LABS: PHOSPHORUS 3.1 MG/DL (2.3-4.7)
[2022-04-05 02:44] LABS: CREATININE SERUM 1.15 MG/DL (0.60-1.30)
[2022-04-05 02:45] LABS: SALICYLATE < 5.0 MG/DL (5.0-20.0)
[2022-04-05] MEDS ORDERED: morphine INJ 4 MG/ML 1 ML (VIAL/SYRINGE) ONE (02:45)
[2022-04-05 02:47] LABS: MAGNESIUM 1.8 MG/DL (1.6-2.4)
[2022-04-05] MEDS: morphine INJ 4 MG/ML 1 ML (VIAL/SYRINGE) IVP PRN ×8 (02:56→23:16)
[2022-04-05] MEDS ORDERED: EPINEPHrine 1 MG INJECTION 4 MG in NS (IVPB) 248 ML IV SCH (03:15)
[2022-04-05] MEDS ORDERED: NOREPINEPHRINE 8 MG/250 ML 250 ML IV SCH (03:15)
[2022-04-05] MEDS ORDERED: VASOPRESSIN INJECTION 20 UNIT in NS (IVPB) 100 ML IV SCH (03:15)
[2022-04-05] MEDS: NS IV 1000 ML 1,000 ML IV SCH ×4 (03:25→18:44)
[2022-04-05] MEDS ORDERED: FLU QUADRIvalent (6 months+) 60 mcg/0.5 ml 2022-23 (Fluzone) IM ONE (06:45)
--- NOTE | 2022-04-05 06:47 | Diagnostic Imaging Report ---
INDICATION: Body aches, emesis and urinary tract infection Single AP view of the chest is obtained with comparison made to the study of 02/24/2022. FINDINGS: Heart size and pulmonary vascularity are within normal limits, and the lungs are clear, bilaterally. IMPRESSION: Unremarkable chest. Dictated by: Dictated on workstation # [id number]
[2022-04-05] MEDS: ONDANSETRON 4 MG/2 ML (SDV) Z0FRAN IV PRN ×2 (08:04→13:34)
[2022-04-05] MEDS: MEROPENEM 500 MG/NS 100 ML IVPB IV SCH ×4 (08:04→12:06)
[2022-04-05] MEDS ORDERED: LISI1TAB44 PO (10:19)
[2022-04-05] MEDS ORDERED: ONDA4TAB11 SL (10:19)
[2022-04-05] MEDS ORDERED: NITR100C PO (10:19)
[2022-04-05] MEDS ORDERED: ACET-2267 PO (10:19)
[2022-04-05] MEDS ORDERED: IBUP-2473 PO (10:19)
--- NOTE | 2022-04-05 10:31 | Tele-ICU Consult ---
History of Present Illness History of Present Illness Date Seen by Provider: Apr 05, 2022 Time Seen by Provider: 10:30 History of Present Illness (Tele-ICU Physician , consultation as per request of PCP Service provided via interactive audio and video telecommunications E-CARE system to a patient admitted to ICU bed in [facility]. Available chart/ vitals / labs / Images reviewed H&P is from ER notes Patient's information available about PMH, Shx, Fhx allergy reviewed inEMR. ROS as per chart and RN report Now in ICU, hemodynamically stable Video assessment done using teleICU camera, rest of exam as per RN Discussed with RN. Consultants: Hospital course: (04/05) 36yF Admit severe sepsis, UTI, Cervicitis, Metabolic acidosis A/P UTI - with Ecoli dx NURSE TRANSITIONAL - sens to merrem , await repeated cx sepsis - imroving lactae with hydration , vital stable SOLITARIO - dehydration. CT - no obstruction or hydro - improving met acidosis - combination of sepsis, SOLITARIO and vo miting/diarrhea? - cont to hydrate abd pain N/V - reported h/o olitis - sx consuted - await eval Lines : periph , (Central Line Necessity Reviewed) Herrera: void OG: Nutrition: npo til sx assess ment Analgesia: Anxiety/ delirium VTE Prophylaxis: jame Stress Ulcer Prophylaxis: Plans in collaboration with bedside consultants and IM MDs. Discussed with RN to reach out if any questions or concerns A total of 32 minutes of critical care time was devoted to this patient today, required to treat and/or prevent further deterioration of critical care condition ( as above ) . I am remotely monitoring this patient from another state. I am unable to do the bedside exam, and history/physical and pertinent information is taken from other notes in the computer and bedside staff. . Allergies and Home Medications Allergies Coded Allergies: No Known Drug Allergies (Verified , 12/13/07) Home Medications Acetaminophen 500 Mg Tablet, 1,000 MG PO Q8H PRN for PAIN-MILD (1-4), (Reported) Ibuprofen 200 Mg Tablet, 400-600 MG PO Q8H PRN for PAIN-MILD (1-4), (Reported) Lisinopril/Hydrochlorothiazide 10 Mg-12.5 Mg Tablet, 1 EACH PO DAILY, (Reported) Nitrofurantoin Macrocrystal 100 Mg Capsule, 100 MG PO BID, (Reported) FILLED 04-01-2022 #14/7 DAY SUPPLY Ondansetron 4 Mg Tab.rapdis, 4 MG SL Q4H PRN for NAUSEA/VOMITING-1ST LINE, (Reported) Past Medical/Social/Family Hx Patient Social History Tobacco Use?: No Use of E-Cig and/or Vaping dev: No Substance use?: No Alcohol Use?: No Pt stated abuse/neglect: No Immunizations Up To Date Influenza Vaccine Up-to-Date: No; Not Current First/Initial COVID19 Vaccinat: RECEIVED, UNK WHEN Second COVID19 Vaccination Lakhwinder: RECEIVED, UNK WHEN Tetanus Booster (TDap): Unknown Current Status Advance Directives: No Communicates: Verbally Primary Language: Faroese Preferred Spoken Language: Faroese Is interpretation needed?: No Implanted or Applied Medical D: None Review of Systems Constitutional: see HPI Focused Exam Lactate Level 04/04/22 23:05: Lactic Acid Level 2.03*H 04/05/22 02:20: Lactic Acid Level 1.92 Height, Weight, BMI Height: 4'9.00" Weight: 170lbs. 8.0oz. 77.863087cf; 29.04 BMI Method:Stated Time of Focused Exam: 01:00 Exam Exam Patient acknowledged, consented, and participated in this virtual visit which was conducted using real time audio/video Vital Signs Date Time Temp Pulse Resp B/P (MAP) Pulse Ox O2 Delivery O2 Flow Rate FiO2 04/05/22 10:00 92 14 129/77 (94) 100 Room Air 04/05/22 09:00 97 15 124/77 (93) 100 Room Air 04/05/22 08:02 36.2 04/05/22 08:00 96 17 131/93 (106) 100 Room Air 04/05/22 07:00 88 27 136/97 (110) 98 Room Air 04/05/22 07:00 88 04/05/22 06:00 95 18 131/76 (94) 100 Room Air 04/05/22 05:00 94 18 116/75 (89) 100 Room Air 04/05/22 04:00 Room Air 04/05/22 04:00 101 19 124/76 (92) 99 Room Air 04/05/22 03:09 100 Room Air 04/05/22 03:05 107 100 21 04/05/22 03:00 106 16 144/85 (104) 100 Room Air 04/05/22 02:45 102 20 140/108 (119) 100 Room Air 04/05/22 02:30 107 13 159/109 (126) 100 Room Air 04/05/22 02:15 121 21 167/118 (134) 100 Room Air 04/05/22 02:15 Room Air 04/05/22 02:10 36.5 110 18 170/109 (129) 100 Room Air 04/05/22 02:08 114 04/05/22 01:52 110 20 140/99 99 Room Air 04/04/22 22:14 36.8 146 22 113/91 (98) 100 Room Air I & O 04/05/22 07:00 Intake Total 2100 ml Balance 2100 ml Height & Weight Height: 4'9.00" Weight: 170lbs. 8.0oz. 77.765163jk; 29.04 BMI Method:Stated General Appearance: No Apparent Distress, WD/WN, Anxious, Moderate Distress, Other (Very thin hair) HEENT: PERRL/EOMI, Pharynx Normal Neck: Normal Inspection Respiratory: Lungs Clear, Normal Breath Sounds, No Accessory Muscle Use, No Respiratory Distress Cardiovascular: Regular Rate, Rhythm, Tachycardia (107) Capillary Refill: Less Than 3 Seconds Peripheral Pulses: 2+ Radial Pulses (R), 2+ Radial Pulses (L) Extremity: Normal Inspection, Normal Range of Motion, No Pedal Edema Neurologic/Psychiatric: Alert, Oriented x3, No Motor/Sensory Deficits, Other (Anxious) Skin: Normal Color, Warm/Dry Results Lab Laboratory Tests 04/04/22 23:05 04/05/22 02:20 Assessment/Plan Assessment/Plan 1 RALPH SENA MD Apr 05, 2022 10:31
--- NOTE | 2022-04-05 12:02 | History & Physical ---
OXANA BURNETT 04/05/22 1201: History of Present Illness History of Present Illness Reason for visit/HPI Ms. Reyes is a 36 y/o female with a PMHx of HTN and colitis who presented to the [facility] ED on 04/04 with nausea, vomiting, abdominal pain, and an episode of pre- syncope. Patient states for the past 2-3 weeks she has been feeling unwell with abdominal pain and dizziness. Patient reports she was seen in late February and was diagnosed with colitis, treated with Flagyl. Patient was also seen in the [facility] ED on 04/04 with similar symptoms and was found to have a UTI, and treatment with Macrobid was initiated. Patient reports she has been compliant with her medications. The patient reports she has had increased nausea with vomiting for the past 2-3 days. In the ED, the patient's IUD was removed that had been in place since 2013. Patient denies abnormal vaginal discharge. Patient has been admitted to the Hospitalist service for management of severe sepsis secondary to UTI. Sepsis qualifiers include leukocytosis, tachycardia, lactic acidosis, and a known source of infection. Date of Admission Apr 05, 2022 at 01:20 Date Seen by a Provider: Apr 05, 2022 Time Seen by a Provider: 09:30 I consulted on this patient on 04/05/22 11:55 Attending Physician [place] Admitting Physician Admitting Physician: Kami Umanzor DO Attending Physician: nAna Resendiz MD Consult Allergies and Home Medications Allergies Coded Allergies: No Known Drug Allergies (Verified , 12/13/07) Patient Home Medication List Home Medication List Reviewed: Yes Acetaminophen (Tylenol Extra Strength) 500 Mg Tablet, 1,000 MG PO Q8H PRN for PAIN-MILD (1-4), (Reported) Entered as Reported by: ZULEMA WILSON on 04/05/22 1019 Last Action: Held Ibuprofen (Ibuprofen) 200 Mg Tablet, 400-600 MG PO Q8H PRN for PAIN-MILD (1-4), (Reported) Entered as Reported by: ZULEMA WILSON on 04/05/22 1019 Last Action: Held Lisinopril/Hydrochlorothiazide (Lisinopril-Hctz 10-12.5 mg Tab) 10 Mg-12.5 Mg Tablet, 1 EACH PO DAILY, (Reported) Entered as Reported by: ZULEMA WILSON on 04/05/22 1019 Last Action: Held Nitrofurantoin Macrocrystal (Nitrofurantoin) 100 Mg Capsule, 100 MG PO BID, (Reported) Entered as Reported by: ZULEMA WILSON on 04/05/22 101 Last Action: Held Ondansetron (Ondansetron Odt) 4 Mg Tab.rapdis, 4 MG SL Q4H PRN for NAUSEA/VOMITING-1ST LINE, (Reported) Entered as Reported by: ZULEMA WILSON on 04/05/22 1019 Last Action: Held Discontinued Medications Calcium Carbonate (Tums) 200 Mg Tab.chew, 200 MG PO Q4H, (Reported) Discontinued Reason: No Longer Taking Entered as Reported by: LASHAUN BRAVO on 03/31/132048 Last Action: Discontinued Docusate Sodium (Colace) 100 Mg Cap, 100 MG PO BID Discontinued Reason: No Longer Taking Prescribed by: SKYLER PADILLA on 10/13/13 0940 Last Action: Discontinued Ferrous Sulfate (Feosol Tab) 325 Mg Tab, 325 MG PO DAILY@0700 Discontinued Reason: No Longer Taking Prescribed by: SKYLER PADILLA on 10/13/13 0940 Last Action: Discontinued Hydrocodone/Acetaminophen (Hydrocodone-Acetamin 5-325 mg) 5 Mg-325 Mg Tablet, 1 TAB PO Q6H PRN for PAIN-MODERATE (5-7) Discontinued Reason: No Longer Taking Prescribed by: DANNIELLE HOGAN on 02/25/22 1208 Last Action: Discontinued Labetalol Hcl (Labetolol) 200 Mg Tab, 200 MG PO TID Discontinued Reason: No Longer Taking Prescribed by: RAMYA PATTON on 10/23/13 1349 Last Action: Discontinued Lisinopril/Hydrochlorothiazide (Lisinopril-Hctz 10-12.5 mg Tab) 10 Mg-12.5 Mg Tablet, 1 EACH PO DAILY Discontinued Reason: No Longer Taking Prescribed by: DANNIELLE HOGAN on 02/24/222045 Last Action: Discontinued Metronidazole (Metronidazole) 500 Mg Tablet, 500 MG PO BID Discontinued Reason: No Longer Taking Prescribed by: DANNIELLE HOGAN on 02/24/222045 Last Action: Discontinued Nitrofurantoin Macrocrystal (Nitrofurantoin) 100 Mg Capsule, 100 MG PO Q12H Discontinued Reason: No Longer Taking Prescribed by: LUCINDA HEBERT MD on 04/01/22 134 Last Action: Discontinued Ondansetron (Ondansetron Odt) 4 Mg Tab.rapdis, 4 MG SL Q4H PRN for NAUSEA/VOMITING Discontinued Reason: No Longer Taking Prescribed by: LUCINDA HEBERT MD on 04/01/22 1343 Last Action: Discontinued Oxycodone Hcl/Acetaminophen (Percocet 5-325 Mg Tablet) 1 Each Tablet, 1-2 EACH PO q4-6 hr PRN for PAIN Discontinued Reason: No Longer Taking Prescribed by: RAMYA PATTON on 10/23/13 1349 Last Action: Discontinued Potassium Chloride (Potassium Chloride) 20 Meq Tablet.er, 40 MEQ PO DAILY Discontinued Reason: No Longer Taking Prescribed by: LUCINDA HEBERT MD on 04/01/221342 Last Action: Discontinued Vits W-Ca,Fe,Fa(<1MG) () 1 Each Tablet, 1 EACH PO DAILY, (Reported) Discontinued Reason: No Longer Taking Entered as Reported by: MELODY DUARTE on 06/03/11 0945 Last Action: Discontinued [Ibuprofen] 600 MG TAB, 600 MG PO Q6H PRN for PAIN Discontinued Reason: No Longer Taking Prescribed by: SKYLER PADILLA on 10/13/13 0940 Last Action: Discontinued Past Obcsdfj-Saggyv-Rpniju Hx Patient Social History Tobacco Use?: No Use of E-Cig and/or Vaping dev: No Substance use?: No Alcohol Use?: Yes Alcohol Frequency: Once in a while Pt feels they are or have been: No Immunizations Up To Date Date of Influenza Vaccine: Dec 28, 2012 First/Initial COVID19 Vaccinat: RECEIVED, UNK WHEN Second COVID19 Vaccination Lakhwinder: RECEIVED, UNK WHEN Tetanus Booster (TDap): Unknown Current Status status: No Advance Directives: No Communicates: Verbally Primary Language: Bermudian Preferred Spoken Language: B[place]udian Is interpretation needed?: No Implanted or Applied Medical D: None Past Medical History Surgeries: Appendectomy, Section (x3), Gallbladder WATCH [employer]SEM[employer]ER History: IUD (removed ) Adverse Reaction/Blood Tranf: No Family Medical History Completed stroke 19 FATHER (PGF) Hypertension 19 FATHER No Family History of: AIDS Abdominal aortic aneurysm [place]'s disease Alcoholism Alzheimer's disease Aphasia Arthritis Asthma Cancer of mouth Cardiovascular disease Cataracts Colon cancer Congenital disease Congenital heart disease Coronary thrombosis Cystic fibrosis Deafness or hearing loss Dementia Diabetes mellitus Drug abuse Dysphasia Fibrocystic disease of breast Gastroenteritis Glaucoma Headache disorder Hypercholesterolemia Infertility Kidney disease Myocardial infarction Neoplasm Osteoporosis Parkinson's disease Prostate cancer Psychosocial problem Respiratory disorder Seizure disorder Severe allergy Thyroid disease Tuberculosis Visual disorder Review of Systems Constitutional: dizziness EENTM: no symptoms reported; No vision loss Respiratory: short of breath Cardiovascular: chest pain Gastrointestinal: abdominal pain (RUQ, LUQ, suprapubic ) Genitourinary: pain : No Musculoskeletal: no symptoms reported Skin: no symptoms reported Psychiatric/Neurological: No Symptoms Reported; Denies Headache Physical Exam Vital Signs Vital Signs - First Documented 04/04/22 04/05/22 22:14 03:05 Temp 36.8 Pulse 146 Resp 22 B/P (MAP) 113/91 (98) Pulse Ox 100 O2 Delivery Room Air FiO2 21 Capillary Refill : Less Than 3 Seconds Height, Weight, BMI Height: 4'9.00" Weight: 170lbs. 8.0oz. 77.492447ox; 29.04 BMI Method:Stated General Appearance: Mild Distress (patient is wincing with movement due to abdominal pain) HEENT: PERRL/EOMI Respiratory: Lungs Clear, Normal Breath Sounds, No Accessory Muscle Use, No Respiratory Distress Cardiovascular: Regular Rate, Rhythm, No Edema Gastrointestinal: Normal Bowel Sounds, Soft, Tenderness (RUQ, LUQ, suprapubic tenderness with palpation) Neurologic/Psychiatric: Alert, Oriented x3, Normal Mood/Affect Skin: Normal Color, Warm/Dry Assessment/Plan Assessment and Plan Problems: (1) Severe sepsis Status: Acute Assessment & Plan: Severe sepsis qualifiers: leukocytosis of 24.9, tachycardia, lactic acidosis 2.03 -> 1.92, source of infection UTI -Sepsis is secondary to UTI -Meropenam 500mg -> consider de-escalating to Rocephin if patient continues to improve -Pain management with morphine 2-4mg IVP Q2H -Transition to Med-Surg floor today -AM CBC, BMP (2) UTI (urinary tract infection) Status: Acute Qualifiers: Qualified Codes: N39.0 - Urinary tract infection, site not specified; R31.9 - Hematuria, unspecified Assessment & Plan: Severe sepsis qualifiers: leukocytosis of 24.9, tachycardia, lactic acidosis 2.03 -> 1.92, source of infection UTI -Sepsis is secondary to UTI -Meropenam 500mg -> consider de-escalating to Rocephin if patient continues to improve -Pain management with morphine 2-4mg IVP Q2H -Monitor urine output -Continue IVF with sodium chloride, decrease rate from 250mls/hr to 150mls/hr. Monitor for signs of fluid retention, eg peripheral edema -Transition to Med-Surg floor today -Considering KUB or CT of abdomen and pelvis if abdominal pain does not improve by tomorrow -AM CBC, BMP (3) SOLITARIO (acute kidney injury) Status: Acute Assessment & Plan: Cr 1.15, BUN 23 on 04/05 -Continue to monitor with AM BMP -Monitor urine output -Continue IVF with sodium chloride 1000ml @ 150mls/hr (4) Hypertension Status: Acute Assessment & Plan: -Continue to monitor BP -Medication reconciliation and restart home medications as long as BP is stable (5) High anion gap metabolic acidosis Status: Acute Assessment & Plan: Anion gap of 23 on 04/05 -Likely secondary to lactic acidosis, possibly uremia -Patient denies recent alcohol consumption or consumption of any substances -Cl is 108 on 04/05 with CO2 of 9, supporting metabolic acidosis -Continue to monitor with AM BMP -Continue IVF Admission Diagnosis Admission Status: Inpatient Order (span 2 midnights) Reason for Inpatient Admission: Severe sepsis secondary to UTI ANNA RESENDIZ MD 04/05/22 1341: Allergies and Home Medications Allergies Coded Allergies: No Known Drug Allergies (Verified , 12/13/07) Patient Home Medication List Acetaminophen (Tylenol Extra Strength) 500 Mg Tablet, 1,000 MG PO Q8H PRN for PAIN-MILD (1-4), (Reported) Entered as Reported by: ZULEMA WILSON on 04/05/22 1019 Last Action: Held Ibuprofen (Ibuprofen) 200 Mg Tablet, 400-600 MG PO Q8H PRN for PAIN-MILD (1-4), (Reported) Entered as Reported by: ZULEMA WILSON on 04/05/22 1019 Last Action: Held Lisinopril/Hydrochlorothiazide (Lisinopril-Hctz 10-12.5 mg Tab) 10 Mg-12.5 Mg Tablet, 1 EACH PO DAILY, (Reported) Entered as Reported by: ZULEMA WILSON on 04/05/22 1019 Last Action: Held Nitrofurantoin Macrocrystal (Nitrofurantoin) 100 Mg Capsule, 100 MG PO BID, (Reported) Entered as Reported by: ZULEMA WILSON on 04/05/22 1019 Last Action: Held Ondansetron (Ondansetron Odt) 4 Mg Tab.rapdis, 4 MG SL Q4H PRN for NAUSEA/VOMITING-1ST LINE, (Reported) Entered as Reported by: ZULEMA WILSON on 04/05/22 101 Last Action: Held Discontinued Medications Calcium Carbonate (Tums) 200 Mg Tab.chew, 200 MG PO Q4H, (Reported) Discontinued Reason: No Longer Taking Entered as Reported by: LASHAUN BRAVO on 03/31/132048 Last Action: Discontinued Docusate Sodium (Colace) 100 Mg Cap, 100 MG PO BID Discontinued Reason: No Longer Taking Prescribed by: SKYLER PADILLA on 10/13/13 0940 Last Action: Discontinued Ferrous Sulfate (Feosol Tab) 325 Mg Tab, 325 MG PO DAILY@0700 Discontinued Reason: No Longer Taking Prescribed by: SKYLER PADILLA on 10/13/13 0940 Last Action: Discontinued Hydrocodone/Acetaminophen (Hydrocodone-Acetamin 5-325 mg) 5 Mg-325 Mg Tablet, 1 TAB PO Q6H PRN for PAIN-MODERATE (5-7) Discontinued Reason: No Longer Taking Prescribed by: DANNIELLE HOGAN on 02/25/22 1208 Last Action: Discontinued Labetalol Hcl (Labetolol) 200 Mg Tab, 200 MG PO TID Discontinued Reason: No Longer Taking Prescribed by: RAMYA PATTON on 10/23/13 1349 Last Action: Discontinued Lisinopril/Hydrochlorothiazide (Lisinopril-Hctz 10-12.5 mg Tab) 10 Mg-12.5 Mg Tablet, 1 EACH PO DAILY Discontinued Reason: No Longer Taking Prescribed by: DANNIELLE HOGAN on 02/24/222045 Last Action: Discontinued Metronidazole (Metronidazole) 500 Mg Tablet, 500 MG PO BID Discontinued Reason: No Longer Taking Prescribed by: DANNIELLE HOGAN on 02/24/222045 Last Action: Discontinued Nitrofurantoin Macrocrystal (Nitrofurantoin) 100 Mg Capsule, 100 MG PO Q12H Discontinued Reason: No Longer Taking Prescribed by: LUCINDA HEBERT MD on 04/01/22 1343 Last Action: Discontinued Ondansetron (Ondansetron Odt) 4 Mg Tab.rapdis, 4 MG SL Q4H PRN for NAUSEA/VOMITING Discontinued Reason: No Longer Taking Prescribed by: LUCINDA HEBERT MD on 04/01/22 1343 Last Action: Discontinued Oxycodone Hcl/Acetaminophen (Percocet 5-325 Mg Tablet) 1 Each Tablet, 1-2 EACH PO q4-6 hr PRN for PAIN Discontinued Reason: No Longer Taking Prescribed by: RAMYA PATTON on 10/23/13 1349 Last Action: Discontinued Potassium Chloride (Potassium Chloride) 20 Meq Tablet.er, 40 MEQ PO DAILY Discontinued Reason: No Longer Taking Prescribed by: LUCINDA HEBERT MD on 04/01/221342 Last Action: Discontinued Vits W-Ca,Fe,Fa(<1MG) () 1 Each Tablet, 1 EACH PO DAILY, (R eported) Discontinued Reason: No Longer Taking Entered as Reported by: MELODY DUARTE on 06/03/11 0945 Last Action: Discontinued [Ibuprofen] 600 MG TAB, 600 MG PO Q6H PRN for PAIN Discontinued Reason: No Longer Taking Prescribed by: SKYLER PADILLA on 10/13/13 0940 Last Action: Discontinued Past Rkkuuzc-Fbhjsy-Cuvsiv Hx Family Medical History Completed stroke 19 FATHER (PGF) Hypertension 19 FATHER No Family History of: AIDS Abdominal aortic aneurysm [place]'s disease Alcoholism Alzheimer's disease Aphasia Arthritis Asthma Cancer of mouth Cardiovascular disease Cataracts Colon cancer Congenital disease Congenital heart disease Coronary thrombosis Cystic fibrosis Deafness or hearing loss Dementia Diabetes mellitus Drug abuse Dysphasia Fibrocystic disease of breast Gastroenteritis Glaucoma Headache disorder Hypercholesterolemia Infertility Kidney disease Myocardial infarction Neoplasm Osteoporosis Parkinson's disease Prostate cancer Psychosocial problem Respiratory disorder Seizure disorder Severe allergy Thyroid disease Tuberculosis Visual disorder Supervisory-Addendum Brief Verification & Attestation Participated in pt care: history, MDM, physical Personally performed: exam, history, MDM, supervision of care Care discussed with: Medical Student Procedures: n/a I personally saw and examined patient and did my own history and exam which confirmed that documented by the medical student. I directed the plan of care as documented by the medical student. OXANA BURNETT Apr 05, 2022 12:01 ANNA RESENDIZ MD Apr 05, 2022 13:41
[2022-04-05] MEDS: ENOXAPARIN 40 MG/0.4 ML (LOVENOX) SYR SC SCH (12:07)
[2022-04-05] MEDS ORDERED: MEROPENEM 500 MG in NS (IVPB) 100 ML IV SCH (14:30)
[2022-04-05] MEDS: cefTRIAXone 1 GM/50 ML (PRE-MIX) IV SCH (16:17)
[2022-04-05] MEDS ORDERED: fentaNYL INJ 100 MCG/2 ML AMP ONE (18:40)
[2022-04-05] MEDS ORDERED: fentaNYL INJ 100 MCG/2 ML AMP IVP NR (18:45)
--- NOTE | 2022-04-05 18:46 | Diagnostic Imaging Report ---
Indication: Abdominal pain KUB 6:27 PM Lung bases are clear. Bowel gas pattern is normal. Gallbladder surgically absent. There are no pathologic masses or calcifications. IMPRESSION: No acute abnormalities in the abdomen Dictated by: Dictated on workstation # [id number]
[2022-04-05] MEDS: metroNIDAZOLE 500 MG/100 ML IVPB (PRE-MIX) IV SCH (20:29)
[2022-04-06] VITALS (11 sets, daily range): BP systolic 111–136; BP diastolic 51–91
[2022-04-06] MEDS: NS IV 1000 ML 1,000 ML IV SCH ×4 (00:21→21:12)
[2022-04-06] MEDS: morphine INJ 4 MG/ML 1 ML (VIAL/SYRINGE) IVP PRN ×6 (01:33→15:49)
[2022-04-06 05:39] LABS: BASOPHILS % (AUTO) 0 % (0-10); EOSINOPHILS % (AUTO) 0 % (0-10); HEMATOCRIT 34 % (35-52); HEMOGLOBIN 11.5 g/dL (11.5-16.0); LYMPHOCYTES # (AUTO) 0.6 10^3/uL (1.0-4.0); LYMPHOCYTES % (AUTO) 2 % (12-44); MEAN CORPUSCULAR HEMOGLOBIN 39 pg (25-34); MEAN CORPUSCULAR HGB CONC 34 g/dL (32-36); MEAN CORPUSCULAR VOLUME 116 fL (80-99); MEAN PLATELET VOLUME 10.6 fL (9.0-12.2); MONOCYTES # (AUTO) 1.5 10^3/uL (0.0-1.0); MONOCYTES % (AUTO) 4 % (0-12); NEUTROPHILS # (AUTO) 36.9 10^3/uL (1.8-7.8); NEUTROPHILS % (AUTO) 93 % (42-75); PLATELET COUNT 552 10^3/uL (130-400)
[2022-04-06 05:45] LABS: WHITE BLOOD COUNT 39.5 10^3/uL (4.3-11.0)
[2022-04-06 05:55] LABS: ALBUMIN 3.2 GM/DL (3.2-4.5); BILIRUBIN,TOTAL 0.6 MG/DL (0.1-1.0); CALCIUM 8.4 MG/DL (8.5-10.1); CREATININE SERUM 0.78 MG/DL (0.60-1.30); MAGNESIUM 1.4 MG/DL (1.6-2.4); PHOSPHORUS 1.8 MG/DL (2.3-4.7); POTASSIUM 3.6 MMOL/L (3.6-5.0)
[2022-04-06 06:04] LABS: BAND NEUTROPHILS 6 %; LYMPHOCYTES % (MANUAL) 1 %; MONOCYTES % (MANUAL) 6 %; NEUTROPHILS % (MANUAL) 87 %
[2022-04-06 06:05] LABS: ANISOCYTOSIS SLIGHT; STOMATOCYTES MODERATE; TOXIC GRANULATION/VACUOLAZATIO 1+
--- NOTE | 2022-04-06 07:31 | Diagnostic Imaging Report ---
PROCEDURE: CT abdomen and pelvis without contrast. TECHNIQUE: Multiple contiguous axial images were obtained through the abdomen and pelvis without the use of intravenous contrast. Auto Exposure Controls were utilized during the CT exam to meet ALARA standards for radiation dose reduction. DATE: April 06, 2022. COMPARISON: CT abdomen and pelvis April 01, 2022. INDICATION: 36-year-old female, abdominal pain and nausea. FINDINGS: There are limitations for evaluation of the abdominal organs, neoplastic processes, abscess, and limited evaluation of the vasculature relating to the lack of intravenous contrast. There are predominantly linear opacities in the right lower lobe and left lower lobe likely largely reflecting atelectasis. There is a trace to small right pleural effusion. The heart is not enlarged. There is no pericardial effusion. The liver is unremarkable in size and contour. There are ill-defined foci of low-attenuation in the liver, many of which appear fairly linear in morphology. There are also areas of relatively low-attenuation the more central aspects of the liver. This appearance is fairly similar to April 01, 2022. There are limitations for assessment of the abdominal parenchymal organs and vasculature given the lack of intravenous contrast. The gallbladder surgically absent. There is no biliary ductal dilation. The main pancreatic duct is not grossly dilated. Noncontrast assessment of the pancreatic parenchyma is unremarkable. The spleen is normal in size. The adrenal glands are unremarkable. There is a low-attenuation left renal lesion on axial image 60 which measures 1.3 cm in size. Internal attenuation is compatible with a benign cyst. There are several nonobstructing renal stones bilaterally. Medullary pyramids are hyperdense bilaterally. There is no hydronephrosis. There is no identified ureteral stone. Urinary bladder is grossly unremarkable in appearance. There is fatty wall thickening of the right colon which may reflect chronic colitis. There is no convincing evidence of an acute colitis. There is free intraperitoneal air Axial image 49 and also adjacent images. This is new since the prior CT abdomen and pelvis study on April 01, 2022. There does appear to be wall thickening of the proximal duodenum. There is no identified drainable fluid collection. There is a small volume ascites which is new. There is no identified acute bony abnormality. IMPRESSION: 1. New free intraperitoneal air since April 01, 2022 concerning for rupture of a hollow viscus including potentially a bowel. 2. There does appear to be a nonspecific mild wall thickening of the proximal duodenum. A nonspecific duodenitis is considered. 3. New small volume ascites. 4. There is some differential attenuation in the liver of unclear exact etiology. Recommend correlation with liver function tests. 5. Nonobstructing renal stones and findings suggestive of medullary nephrocalcinosis. No identified ureteral stone or hydronephrosis. 6. New trace to small right pleural effusion. Findings called at 0723 hours on April 06, 2022. Dictated by: Dictated on workstation # [id number]
[2022-04-06] MEDS: metroNIDAZOLE 500 MG/100 ML IVPB (PRE-MIX) IV SCH (07:47)
--- NOTE | 2022-04-06 07:47 | Consultation - Surgery ---
GIANNACLAUDIA 04/06/22 0747: History of Present Illness History of Present Illness Patient Consulted On(tara/time) 04/06/22 07:43 Date Seen by Provider: Apr 06, 2022 Time Seen by Provider: 07:43 History of Present Illness 36F with pmh of colitis and HTN ws brought to ER on 04/04 for abdominal and suprapubic pain and found to be septic secondary to UTI. Since her stay, pt has had an increase in abdominal pain located in RUQ that radiates down to RLQ and suprapubic rated 9/10 and worsened with movement or deep inspiration. Had multiple bouts of n/v throughout the night and no BM since Tuesday. Pt claims she has had abd pain for multiple weeks which she has been chronically taking tylenol and ibuprofen. Denies CP or palpitations. Claims fever, chills, n/v, lightheadedness. CT today showed new free air in peritoneal cavity and ascities. Allergies and Home Medications Allergies Coded Allergies: No Known Drug Allergies (Verified , 12/13/07) Patient Home Medication List Home Medication List Reviewed: Yes Acetaminophen (Tylenol Extra Strength) 500 Mg Tablet, 1,000 MG PO Q8H PRN for PAIN-MILD (1-4), (Reported) Entered as Reported by: ZULEMA WILSON on 04/05/22 1019 Last Action: Held Ibuprofen (Ibuprofen) 200 Mg Tablet, 400-600 MG PO Q8H PRN for PAIN-MILD (1-4), (Reported) Entered as Reported by: ZULEMA WILSON on 04/05/22 1019 Last Action: Held Lisinopril/Hydrochlorothiazide (Lisinopril-Hctz 10-12.5 mg Tab) 10 Mg-12.5 Mg Tablet, 1 EACH PO DAILY, (Reported) Entered as Reported by: ZULEMA WILSON on 04/05/22 1019 Last Action: Held Nitrofurantoin Macrocrystal (Nitrofurantoin) 100 Mg Capsule, 100 MG PO BID, (Reported) Entered as Reported by: ZULEMA WILSON on 04/05/22 1019 Last Action: Held Ondansetron (Ondansetron Odt) 4 Mg Tab.rapdis, 4 MG SL Q4H PRN for NAUSEA/VOMITING-1ST LINE, (Reported) Entered as Reported by: ZULEMA WILSON on 04/05/22 1019 Last Action: Held Discontinued Medications Calcium Carbonate (Tums) 200 Mg Tab.chew, 200 MG PO Q4H, (Reported) Discontinued Reason: No Longer Taking Entered as Reported by: LASHAUN BRAVO on 03/31/132048 Last Action: Discontinued Docusate Sodium (Colace) 100 Mg Cap, 100 MG PO BID Discontinued Reason: No Longer Taking Prescribed by: SKYLER PADILLA on 10/13/13 0940 Last Action: Discontinued Ferrous Sulfate (Feosol Tab) 325 Mg Tab, 325 MG PO DAILY@0700 Discontinued Reason: No Longer Taking Prescribed by: SKYLER PADILLA on 10/13/13 0940 Last Action: Discontinued Hydrocodone/Acetaminophen (Hydrocodone-Acetamin 5-325 mg) 5 Mg-325 Mg Tablet, 1 TAB PO Q6H PRN for PAIN-MODERATE (5-7) Discontinued Reason: No Longer Taking Prescribed by: DANNIELLE HOGAN on 02/25/22 1208 Last Action: Discontinued Labetalol Hcl (Labetolol) 200 Mg Tab, 200 MG PO TID Discontinued Reason: No Longer Taking Prescribed by: RAMYA PATTON on 10/23/131348 Last Action: Discontinued Lisinopril/Hydrochlorothiazide (Lisinopril-Hctz 10-12.5 mg Tab) 10 Mg-12.5 Mg Tablet, 1 EACH PO DAILY Discontinued Reason: No Longer Taking Prescribed by: DANNIELLE HOGAN on 02/24/222045 Last Action: Discontinued Metronidazole (Metronidazole) 500 Mg Tablet, 500 MG PO BID Discontinued Reason: No Longer Taking Prescribed by: DANNIELLE HOGAN on 02/24/222045 Last Action: Discontinued Nitrofurantoin Macrocrystal (Nitrofurantoin) 100 Mg Capsule, 100 MG PO Q12H Discontinued Reason: No Longer Taking Prescribed by: LUCINDA HEBERT MD on 04/01/22 134 Last Action: Discontinued Ondansetron (Ondansetron Odt) 4 Mg Tab.rapdis, 4 MG SL Q4H PRN for NAUSEA/VOMITING Discontinued Reason: No Longer Taking Prescribed by: LUCINDA HEBERT MD on 04/01/22 1343 Last Action: Discontinued Oxycodone Hcl/Acetaminophen (Percocet 5-325 Mg Tablet) 1 Each Tablet, 1-2 EACH PO q4-6 hr PRN for PAIN Discontinued Reason: No Longer Taking Prescribed by: RAMYA PATTON on 10/23/13 1349 Last Action: Discontinued Potassium Chloride (Potassium Chloride) 20 Meq Tablet.er, 40 MEQ PO DAILY Discontinued Reason: No Longer Taking Prescribed by: LUCINDA HEBERT MD on 04/01/22 1343 Last Action: Discontinued Vits W-Ca,Fe,Fa(<1MG) () 1 Each Tablet, 1 EACH PO DAILY, (Reported) Discontinued Reason: No Longer Taking Entered as Reported by: MELODY DUARTE on 06/03/11 0945 Last Action: Discontinued [Ibuprofen] 600 MG TAB, 600 MG PO Q6H PRN for PAIN Discontinued Reason: No Longer Taking Prescribed by: SKYLER PADILLA on 10/13/13 0940 Last Action: Discontinued Past Kvxcqlx-Rzmxza-Optobm Hx Patient Social History Alcohol Use?: Yes Have you traveled recently?: No Immunizations Up To Date Tetanus Booster (TDap): Less than 5yrs Date of Influenza Vaccine: Dec 28, 2012 Surgeries Surgeries: Appendectomy, Section (x3), Gallbladder Reproductive System 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 ) Blood Transfusions Adverse Reaction to a Blood Tr: No Family Medical History Family Medial History: Completed stroke 19 FATHER (PGF) Hypertension 19 FATHER No Family History of: AIDS Abdominal aortic aneurysm Clallam's disease Alcoholism Alzheimer's disease Aphasia Arthritis Asthma Cancer of mouth Cardiovascular disease Cataracts Colon cancer Congenital disease Congenital heart disease Coronary thrombosis Cystic fibrosis Deafness or hearing loss Dementia Diabetes mellitus Drug abuse Dysphasia Fibrocystic disease of breast Gastroenteritis Glaucoma Headache disorder Hypercholesterolemia Infertility Kidney disease Myocardial infarction Neoplasm Osteoporosis Parkinson's disease Prostate cancer Psychosocial problem Respiratory disorder Seizure disorder Severe allergy Thyroid disease Tuberculosis Visual disorder Review of Systems-General Constitutional: chills, fever EENTM: No blurred vision, No nose congestion Respiratory: No cough; dyspnea on exertion, short of breath; No stridor, No wheezing Cardiovascular: No chest pain, No edema, No palpitations Gastrointestinal: abdominal pain (RUQ RLQ suprapubic ), constipation, nausea, vomiting Genitourinary: No dysuria, No frequency Musculoskeletal: back pain, muscle cramps Skin: No lesions, No lumps Psychiatric/Neurological: Headache; Denies Tingling, Denies Weakness Physical Exam-General Problems Physical Exam Vital Signs Vital Signs - First Documented 04/04/22 04/05/22 04/05/22 22:14 03:05 19:31 Temp 36.8 Pulse 146 Resp 22 B/P (MAP) 113/91 (98) Pulse Ox 100 O2 Delivery Room Air O2 Flow Rate 0.00 FiO2 21 Capillary Refill : Less Than 3 Seconds General Appearance: WD/WN Eyes: Bilateral Eye Normal Inspection, Bilateral Eye PERRL, Bilateral Eye EOMI HEENT: PERRL/EOMI, other (moist mucus membranes ) Neck: supple, normal inspection Respiratory: chest non-tender, lungs clear, normal breath sounds, no respiratory distress, no accessory muscle use Cardiovascular: no murmur, tachycardia Peripheral Pulses: 3+ Dorsalis Pedis (R), 3+ Left Dors-Pedis (L), 3+ Radial Pulses (R), 3+ Radial Pulses (L) Gastrointestinal: normal bowel sounds, no pulsatile mass, guarding, tenderness (RLQ ) Back: normal inspection Extremities: no pedal edema, no calf tenderness, normal capillary refill Neurologic/Psychiatric: alert, normal mood/affect, oriented x 3 Skin: normal color, diaphoresis Lymphatic: no adenopathy Data Review Labs Laboratory Tests 04/06/22 05:00: White Blood Count 39.5*H, Red Blood Count 2.95L, Hemoglobin 11.5, Hematocrit 34L , Mean Corpuscular Volume 116H, Mean Corpuscular Hemoglobin 39H, Mean Corpuscu lar Hemoglobin Concent 34, Red Cell Distribution Width 13.5, Platelet Count 552H , Mean Platelet Volume 10.6, Immature Granulocyte % (Auto) 1, Neutrophils (%) (Auto) 93H, Lymphocytes (%) (Auto) 2L, Monocytes (%) (Auto) 4, Eosinophils (%) (Auto) 0, Basophils (%) (Auto) 0, Neutrophils # (Auto) 36.9H, Lymphocytes # (Auto) 0.6L, Monocytes # (Auto) 1.5H, Eosinophils # (Auto) 0.0, Basophils # (Auto) 0.0, Immature Granulocyte # (Auto) 0.5H, Neutrophils % (Manual) 87, Lymphocytes % (Manual) 1, Monocytes % (Manual) 6, Band Neutrophils 6, Toxic Granulation 1+, Anisocytosis SLIGHT, Macrocytosis MODERATE, Stomatocytes MODERATE, Sodium Level 140, Potassium Level 3.6, Chloride Level 116H, Carbon Dioxide Level 9*L, Anion Gap 15H, Blood Urea Nitrogen 7, Creatinine 0.78, Estimat Glomerular Filtration Rate 100, BUN/Creatinine Ratio 9, Glucose Level 126H, Calcium Level 8.4L, Corrected Calcium 9.0, Phosphorus Level 1.8L, Magnesium Level 1.4L, Total Bilirubin 0.6, Aspartate Amino Transf (AST/SGOT) 24, Alanine Aminotransferase (ALT/SGPT) 18, Alkaline Phosphatase 48, Total Protein 6.0L, Albumin 3.2 04/06/22 06:32: Lactic Acid Level 1.63 Microbiology 04/05/22 Wet Prep - Final, Complete 04/04/22 Blood Culture - Preliminary, Resulted No growth 04/04/22 Urine Culture - Preliminary, Resulted Escherichia coli Assessment/Plan Assessment/Plan Assessment/Plan abdominal pain- RUQ RLQ suprapubic free intraperitoneal air- unknown source, could be hollow viscus ascities n/v UTI metabolic acidosis leukocytosis continue IV flagyl and rocephin NPO diagnostic laparoscopy and all other indicated procedures today, pt agrees IVF pain control start Zofran DONNA HUERTA DO 04/06/22 0833: History of Present Illness History of Present Illness History of Present Illness Consult requested by Dr. Umanzor for free air. Patient is a 36 year old female who has been ill for about 2 weeks. Having colitis and abdominal pain. She has been taking ibuprofen and tylenol for pain control daily. Continued to worsen. Pain is located right upper/.lower quadrant and suprapubic area. 10/10 pain. severe pain. Radiated around right side in shape of a 7. Having nausea and vomiting. Movement makes pain worse. Having nausea nad vomiting last night. Having fever. WBC worsening. Had ct scan this morning showing new ascites and some free air. Allergies and Home Medications Allergies Coded Allergies: No Known Drug Allergies (Verified , 12/13/07) Patient Home Medication List Home Medication List Reviewed: Yes Acetaminophen (Tylenol Extra Strength) 500 Mg Tablet, 1,000 MG PO Q8H PRN for PAIN-MILD (1-4), (Reported) Entered as Reported by: ZULEMA WILSON on 04/05/22 1019 Last Action: Held Ibuprofen (Ibuprofen) 200 Mg Tablet, 400-600 MG PO Q8H PRN for PAIN-MILD (1-4), (Reported) Entered as Reported by: ZULEMA WILSON on 04/05/22 1019 Last Action: Held Lisinopril/Hydrochlorothiazide (Lisinopril-Hctz 10-12.5 mg Tab) 10 Mg-12.5 Mg Tablet, 1 EACH PO DAILY, (Reported) Entered as Reported by: ZULEMA WILSON on 04/05/22 1019 Last Action: Held Nitrofurantoin Macrocrystal (Nitrofurantoin) 100 Mg Capsule, 100 MG PO BID, (Reported) Entered as Reported by: ZULEMA WILSON on 04/05/22 1019 Last Action: Held Ondansetron (Ondansetron Odt) 4 Mg Tab.rapdis, 4 MG SL Q4H PRN for NAUSEA/VOMITING-1ST LINE, (Reported) Entered as Reported by: ZULEMA WILSON on 04/05/22 1019 Last Action: Held Discontinued Medications Calcium Carbonate (Tums) 200 Mg Tab.chew, 200 MG PO Q4H, (Reported) Discontinued Reason: No Longer Taking Entered as Reported by: LASHAUN BRAVO on 03/31/13 2049 Last Action: Discontinued Docusate Sodium (Colace) 100 Mg Cap, 100 MG PO BID Discontinued Reason: No Longer Taking Prescribed by: SKYLER PADILLA on 10/13/13 0940 Last Action: Discontinued Ferrous Sulfate (Feosol Tab) 325 Mg Tab, 325 MG PO DAILY@0700 Discontinued Reason: No Longer Taking Prescribed by: SKYLER PADILLA on 10/13/13 0940 Last Action: Discontinued Hydrocodone/Acetaminophen (Hydrocodone-Acetamin 5-325 mg) 5 Mg-325 Mg Tablet, 1 TAB PO Q6H PRN for PAIN-MODERATE (5-7) Discontinued Reason: No Longer Taking Prescribed by: DANNIELLE HOGAN on 02/25/22 1208 Last Action: Discontinued Labetalol Hcl (Labetolol) 200 Mg Tab, 200 MG PO TID Discontinued Reason: No Longer Taking Prescribed by: RAMYA PATTON on 10/23/13 1349 Last Action: Discontinued Lisinopril/Hydrochlorothiazide (Lisinopril-Hctz 10-12.5 mg Tab) 10 Mg-12.5 Mg Tablet, 1 EACH PO DAILY Discontinued Reason: No Longer Taking Prescribed by: DANNIELLE HOGAN on 02/24/222045 Last Action: Discontinued Metronidazole (Metronidazole) 500 Mg Tablet, 500 MG PO BID Discontinued Reason: No Longer Taking Prescribed by: DANNIELLE HOGAN on 02/24/222045 Last Action: Discontinued Nitrofurantoin Macrocrystal (Nitrofurantoin) 100 Mg Capsule, 100 MG PO Q12H Discontinued Reason: No Longer Taking Prescribed by: LUCINDA HEBERT MD on 04/01/221342 Last Action: Discontinued Ondansetron (Ondansetron Odt) 4 Mg Tab.rapdis, 4 MG SL Q4H PRN for NAUSEA/VOMITING Discontinued Reason: No Longer Taking Prescribed by: LUCINDA HEBERT MD on 04/01/221342 Last Action: Discontinued Oxycodone Hcl/Acetaminophen (Percocet 5-325 Mg Tablet) 1 Each Tablet, 1-2 EACH PO q4-6 hr PRN for PAIN Discontinued Reason: No Longer Taking Prescribed by: RAMYA PATTON on 10/23/13 134 Last Action: Discontinued Potassium Chloride (Potassium Chloride) 20 Meq Tablet.er, 40 MEQ PO DAILY Discontinued Reason: No Longer Taking Prescribed by: LUCINDA HEBERT MD on 04/01/221342 Last Action: Discontinued Vits W-Ca,Fe,Fa(<1MG) () 1 Each Tablet, 1 EACH PO DAILY, (Reported) Discontinued Reason: No Longer Taking Entered as Reported by: MELODY DUARTE on 06/03/11 0945 Last Action: Discontinued [Ibuprofen] 600 MG TAB, 600 MG PO Q6H PRN for PAIN Discontinued Reason: No Longer Taking Prescribed by: SKYLER PADILLA on 10/13/13 0940 Last Action: Discontinued Past Zkdbquu-Vwcgoq-Ihyrvg Hx Reviewed Nursing Assessment Reviewed/Agree w Nursing PMH: Yes Family Medical History Significant Family History: No Pertinent Family Hx Family Medial History: Completed stroke 19 FATHER (PGF) Hypertension 19 FATHER No Family History of: AIDS Abdominal aortic aneurysm Clallam's disease Alcoholism Alzheimer's disease Aphasia Arthritis Asthma Cancer of mouth Cardiovascular disease Cataracts Colon cancer Congenital disease Congenital heart disease Coronary thrombosis Cystic fibrosis Deafness or hearing loss Dementia Diabetes mellitus Drug abuse Dysphasia Fibrocystic disease of breast Gastroenteritis Glaucoma Headache disorder Hypercholesterolemia Infertility Kidney disease Myocardial infarction Neoplasm Osteoporosis Parkinson's disease Prostate cancer Psychosocial problem Respiratory disorder Seizure disorder Severe allergy Thyroid disease Tuberculosis Visual disorder Review of Systems-General Constitutional: chills, fever EENTM: No nose congestion Respiratory: No cough; dyspnea on exertion, short of breath; No stridor, No wheezing Cardiovascular: No chest pain, No palpitations Gastrointestinal: abdominal pain (RUQ), constipation, nausea, vomiting Genitourinary: No decreased output, No discharge, No dysuria, No frequency Musculoskeletal: back pain, muscle cramps Skin: No lesions, No lumps Psychiatric/Neurological: Headache; Denies Tingling, Denies Weakness All Other Systems Reviewed Negative Unless Noted: Yes (Negative excepted noted.) Physical Exam-General Problems Physical Exam General Appearance: WD/WN, mild distress HEENT: PERRL/EOMI, other (moist mucus membranes ) Neck: non-tender, supple, normal inspection Respiratory: chest non-tender, no respiratory distress, no accessory muscle use Cardiovascular: tachycardia Gastrointestinal: guarding, tenderness (RLQ /RUQ) Rectal: deferred Back: normal inspection, no CVA tenderness Extremities: non-tender, no pedal edema, no calf tenderness Neurologic/Psychiatric: alert, normal mood/affect, oriented x 3 Skin: normal color, diaphoresis Lymphatic: no adenopathy Assessment/Plan Assessment/Plan Assessment/Plan abdominal pain- RUQ RLQ suprapubic Sepsis with pneumoperitoneum, suspect hollow viscus perforation ascities n/v UTI metabolic acidosis leukocytosis continue IV flagyl and rocephin NPO diagnostic laparoscopy possible open and all other indicated procedures today, pt agrees IVF pain control Supervisory-Addendum Brief Verification & Attestation Participated in pt care: history, MDM, physical Personally performed: exam, history, MDM, supervision of care Care discussed with: Medical Student Procedures: n/a Results interpretation: Verified all documentation Verification and Attestation of Medical Student E/M Service A medical student performed and documented this service in my presence. I reviewed and verified all information documented by the medical student and made modifications to such information, when appropriate. I personally performed the physical exam and medical decision making. Donna Wolff, Apr 06, 2022,08:35 CLAUDIA LORENZO Apr 06, 2022 07:47 DONNA WOLFF DO Apr 06, 2022 08:33
[2022-04-06] MEDS: ENOXAPARIN 40 MG/0.4 ML (LOVENOX) SYR SC SCH (08:28)
[2022-04-06] MEDS: LACTATED RINGERS 1,000 ML IV PRN ×3 (08:35→10:26)
[2022-04-06] MEDS ORDERED: BUP/EPI 0.5% 1:200,000 (SENSORCAINE) 30 ML VIAL ONE (08:41)
[2022-04-06] MEDS ORDERED: SEVOFLURANE (ULTANE) 15 ML INHAL SOLN ONE (09:05)
[2022-04-06] MEDS ORDERED: fentaNYL INJ 100 MCG/2 ML AMP ONE ×2 (09:05→11:11)
[2022-04-06] MEDS ORDERED: proPOfol 200 MG/20 ML (DIPRIVAN) VIAL IV ONE (09:05)
[2022-04-06] MEDS ORDERED: ONDANSETRON 4 MG/2 ML (SDV) Z0FRAN ONE ×2 (09:05→11:15)
[2022-04-06] MEDS ORDERED: LIDOCAINE PF 2% 5 ML (XYLOCAINE) VIAL ONE (09:05)
[2022-04-06] MEDS ORDERED: MIDAZOLAM 2 MG/2 ML (VERSED) VIAL ONE (09:06)
[2022-04-06] MEDS ORDERED: ENOXAPARIN 40 MG/0.4 ML (LOVENOX) SYR SC SCH (09:30)
[2022-04-06] MEDS ORDERED: SUCCINYLCHOLINE INJ 20 MG/1 ML 10 ML VIAL ONE (09:58)
[2022-04-06] MEDS ORDERED: ROCURONIUM 50 MG/5 ML (ZEMURON) VIAL IV ONE (09:58)
[2022-04-06] MEDS ORDERED: BUP/EPI 0.5% 1:200,000 (SENSORCAINE) 30 ML VIAL INJ ONE (10:00)
[2022-04-06] MEDS ORDERED: PANTOPRAZOLE 40 MG (PROTONIX) VIAL ONE (10:24)
[2022-04-06] MEDS ORDERED: PANTOPRAZOLE 40 MG (PROTONIX) VIAL IV ONE (10:30)
[2022-04-06] MEDS ORDERED: FLUCONAZOLE 200 MG/100 ML 100 ML IV ONE (10:30)
--- NOTE | 2022-04-06 10:55 | Progress Note-Post Operative ---
Post-Operative Progess Note Surgeon (s)/Mud Jack Operator (s) Surgeon DONNA WOLFF DO Mud Jack Operator: Dr. Castro Pre-Operative Diagnosis perforated viscus Post-Operative Diagnosis duodenal perforation Procedure & Operative Findings Date of Procedure 04/06/22 Procedure Performed/Findings diagnostic laparoscopy to open marvin patch for duodenal perforation Anesthesia Type general Estimated Blood Loss Estimated blood loss (mL): minimal Specimens/Packing Specimens Removed none Packin trinity drain DONNA WOLFF DO Apr 06, 2022 10:55
--- NOTE | 2022-04-06 11:06 | Anesthesia-General Post-Op ---
General Patient Condition Mental Status/LOC: Same as Preop Cardiovascular: Satisfactory Nausea/Vomiting: Absent Respiratory: Satisfactory Pain: Controlled Complications: Absent Post Op Complications Complications None Follow Up Care/Instructions Patient Instructions None needed. Anesthesia/Patient Condition Patient Condition Patient is doing well, no complaints, stable vital signs, no apparent adverse anesthesia problems. No complications reported per nursing. STACY JUAN CRNA Apr 06, 2022 11:06
[2022-04-06] MEDS ORDERED: fentaNYL INJ 100 MCG/2 ML AMP IVP ONE (11:15)
[2022-04-06] MEDS ORDERED: ONDANSETRON 4 MG/2 ML (SDV) Z0FRAN IVP PRN (11:15)
--- NOTE | 2022-04-06 12:48 | Tele-ICU Progress Note ---
Subjective Date Seen by a Provider: Apr 06, 2022 Time Seen by a Provider: 12:47 Subjective/Events-last exam (Tele-ICU Physician , Progress Note ) Service provided via interactive audio and video telecommunications E-CARE system to a patient admitted to ICU bed in [facility]. Patient is seen today due to persistent need of ICU care Available chart/ vitals / labs / Images reviewed Video assessment done using teleICU camera, rest of exam as per RN Discussed with RN Events overnight : Afebrile hemodynamically stable Respiratory - I/O = Drips: Pressors- no Consultants: sx Hospital course: (04/05) 36yF Admit severe sepsis, UTI, Cervicitis, Metabolic acidosis 04/06- CT with new free air - to OR : diagnostic laparoscopy to open marvin patch for duodenal perforation A/P Duodenal perf 04/06- s/p expl lap with diagnostic laparoscopy to open marvin patch - extubated, hemodynamiaclly stable - flagyl / cefrtiaxone - as per sx - pain control UTI - with Ecoli 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 and NSAIDS - CT - no obstruction or hydro RESOLVED met acidosis - combination of sepsis, SOLITARIO and vo miting/diarrhea? STILL NOT RESOLVED - cont to hydrate abd pain N/V for weeks - reported h/o colitis , now with perf viscus - ? etiology Lines : periph , (Central Line Necessity Reviewed) Herrera: 04/06 OG: Nutrition: npo Analgesia: Anxiety/ delirium VTE Prophylaxis: jame Stress Ulcer Prophylaxis: na Plans in collaboration with bedside consultants and IM MDs. Discussed with RN to reach out if any questions or concerns A total of 32 minutes of critical care time was devoted to this patient today, required to treat and/or prevent further deterioration of critical care condition ( as above ) . I am remotely monitoring this patient from another state. I am unable to do the bedside exam, and history/physical and pertinent information is taken from other notes in the computer and bedside staff. . Sepsis Event Evaluation Height, Weight, BMI Height: 4'9.00" Weight: 170lbs. 8.0oz. [id number]; 29.18 BMI Method:Stated Focused Exam Lactate Level 04/04/22 23:05: Lactic Acid Level 2.03*H 04/05/22 02:20: Lactic Acid Level 1.92 04/06/22 06:32: Lactic Acid Level 1.63 Time of Focused Exam: 01:00 Exam Exam Patient acknowledged, consented, and participated in this virtual visit which was conducted using real time audio/video Vital Signs Date Time Temp Pulse Resp B/P (MAP) Pulse Ox O2 Delivery O2 Flow Rate FiO2 04/06/22 12:15 112 18 120/78 (92) 92 Room Air 04/06/22 12:04 120 04/06/22 12:00 113 20 129/80 (96) 92 Room Air 04/06/22 11:55 37.0 110 16 120/78 (92) 93 Room Air 04/06/22 11:55 Room Air 04/06/22 11:50 36.9 20 112/63 (79) 95 Room Air 04/06/22 11:45 119 130/93 (105) Room Air 04/06/22 11:45 Room Air 04/06/22 11:40 20 112/63 (79) 92 Room Air 04/06/22 11:30 Room Air 04/06/22 11:30 20 122/84 (97) 95 Room Air 04/06/22 11:20 20 113/91 (98) 95 OxyMask 4.00 04/06/22 11:15 OxyMask 4.00 04/06/22 11:10 20 125/81 (96) 98 OxyMask 4.00 04/06/22 11:00 OxyMask 6.00 04/06/22 11:00 24 111/51 (71) 96 OxyMask 6.00 04/06/22 10:52 OxyMask 6.00 04/06/22 10:52 36.7 24 113/60 (77) 94 OxyMask 6.00 04/06/22 08:00 98 Room Air 0.00 04/06/22 07:04 36.5 102 20 136/91 (106) 98 Room Air 04/06/22 05:58 35.8 106 20 127/82 (97) 97 Room Air 04/06/22 04:30 36.8 110 24 129/77 (94) 95 Room Air 0.00 0.00 04/06/22 03:04 36.6 115 20 133/84 (100) 98 Room Air 0.00 0.00 04/05/22 23:46 36.6 104 20 141/74 (96) 100 Room Air 0.00 0.00 04/05/22 20:00 Room Air 04/05/22 19:31 100 Room Air 0.00 04/05/22 19:00 36.8 99 22 151/85 (107) 99 Room Air 04/05/22 16:57 36.4 81 18 106/58 (74) 99 Room Air 04/05/22 14:00 36.3 96 20 120/84 (96) 100 Room Air 04/05/22 13:00 98 I & O 04/06/22 07:00 Intake Total 3120 ml Output Total 350 ml Balance 2770 ml Height & Weight Height: 4'9.00" Weight: 170lbs. 8.0oz. 77.970559cx; 29.18 BMI Method:Stated General Appearance: Mild Distress (patient is wincing with movement due to a bdominal pain) HEENT: PERRL/EOMI Neck: Normal Inspection Respiratory: Lungs Clear, Normal Breath Sounds, No Accessory Muscle Use, No R espiratory Distress Cardiovascular: Regular Rate, Rhythm, No Edema Capillary Refill: Less Than 3 Seconds Peripheral Pulses: 3+ Dorsalis Pedis (R), 3+ Left Dors-Pedis (L), 3+ Radial Pulses (R), 3+ Radial Pulses (L) Gastrointestinal: guarding, tenderness (RLQ /RUQ) Extremity: Normal Inspection, Normal Range of Motion, No Pedal Edema Neurologic/Psychiatric: Alert, Oriented x3, Normal Mood/Affect Skin: Normal Color, Warm/Dry Results Lab Laboratory Tests 04/04/22 23:05 04/05/22 02:20 04/06/22 05:00 Assessment/Plan Assessment/Plan 1 RALPH SENA MD Apr 06, 2022 12:47
--- NOTE | 2022-04-06 13:39 | Progress Note - Hospitalist ---
OXANA BURNETT 04/06/22 1339: Subjective HPI/CC On Admission Date Seen by Provider: Apr 06, 2022 Time Seen by Provider: 08:40 Subjective/Events-last exam Ms. Ryees is a 36 y/o female with a PMHx of HTN and colitis who presented to the [facility] ED on 04/04 with nausea, vomiting, abdominal pain, and an episode of pre- syncope. Patient has been admitted to the Hospitalist service for management of severe sepsis secondary to UTI. Sepsis qualifiers include leukocytosis, tachycardia, lactic acidosis, and a known source of infection. This morning CT of the abdomen and pelvis demonstrated new free peritoneal air with non specific mild wall thickening of the duodenum. Surgery was consulted and the patient was taken to the OR at 0845 this morning for repair of duodenal perforation. Post- operatively, the patient reports significant abdominal pain. Patient denies head ache, chest pain, or SOA. Herrera catheter, NGT, and SCDs in place. Review of Systems HEENT: No Head Aches Pulmonary: No Dyspnea Cardiovascular: No: Chest Pain Gastrointestinal: Abdominal Pain Genitourinary: Other (urinary catheter in place) Focused Exam Lactate Level 04/04/22 23:05: Lactic Acid Level 2.03*H 04/05/22 02:20: Lactic Acid Level 1.92 04/06/22 06:32: Lactic Acid Level 1.63 Time of Focused Exam: 01:00 Objective Exam Vital Signs Vital Signs Date Time Temp Pulse Resp B/P (MAP) Pulse Ox O2 Delivery O2 Flow Rate FiO2 04/06/22 13:01 117 04/06/22 13:00 21 120/76 (91) 95 Room Air 04/06/22 11:55 37.0 04/06/22 11:20 4.00 04/05/22 03:05 21 Capillary Refill : Less Than 3 SecondsLess Than 3 Seconds General Appearance: Mild Distress Respiratory: Other (coarse breath sounds bilaterally) Cardiovascular: No Murmur, Tachycardia (with regular rate) Extremity: No Pedal Edema Neurologic/Psychiatric: Alert, Oriented x3 Skin: Normal Color, Warm/Dry Results/Procedures Lab Laboratory Tests 04/06/22 05:00 Patient resulted labs reviewed. Imaging: Reviewed Imaging Films, Reviewed Imaging Report Radiology NAME: ALEXUS REYES [facility] REC#: [id number] PT STATUS: ADM IN : 1985 PHYSICIAN: ANNA RESENDIZ MD ADMIT DATE: 04/05/22/4TH Signed Date of Exam:04/06/22 CT ABDOMEN/PELVIS WO PROCEDURE: CT abdomen and pelvis without contrast. TECHNIQUE: Multiple contiguous axial images were obtained through the abdomen and pelvis without the use of intravenous contrast. Auto Exposure Controls were utilized during the CT exam to meet ALARA standards for radiation dose reduction. DATE: April 06, 2022. COMPARISON: CT abdomen and pelvis April 01, 2022. INDICATION: 36-year-old female, abdominal pain and nausea. FINDINGS: There are limitations for evaluation of the abdominal organs, neoplastic processes, abscess, and limited evaluation of the vasculature relating to the lack of intravenous contrast. There are predominantly linear opacities in the right lower lobe and left lower lobe likely largely reflecting atelectasis. There is a trace to small right pleural effusion. The heart is not enlarged. There is no pericardial effusion. The liver is unremarkable in size and contour. There are ill-defined foci of low-attenuation in the liver, many of which appear fairly linear in morphology. There are also areas of relatively low-attenuation the more central aspects of the liver. This appearance is fairly similar to April 01, 2022. There are limitations for assessment of the abdominal parenchymal organs and vasculature given the lack of intravenous contrast. The gallbladder surgically absent. There is no biliary ductal dilation. The main pancreatic duct is not grossly dilated. Noncontrast assessment of the pancreatic parenchyma is unremarkable. The spleen is normal in size. The adrenal glands are unremarkable. There is a low-attenuation left renal lesion on axial image 60 which measures 1.3 cm in size. Internal attenuation is compatible with a benign cyst. There are several nonobstructing renal stones bilaterally. Medullary pyramids are hyperdense bilaterally. There is no hydronephrosis. There is no identified ureteral stone. Urinary bladder is grossly unremarkable in appearance. There is fatty wall thickening of the right colon which may reflect chronic colitis. There is no convincing evidence of an acute colitis. There is free intraperitoneal air Axial image 49 and also adjacent images. This is new since the prior CT abdomen and pelvis study on April 01, 2022. There does appear to be wall thickening of the proximal duodenum. There is no identified drainable fluid collection. There is a small volume ascites which is new. There is no identified acute bony abnormality. IMPRESSION: 1. New free intraperitoneal air since April 01, 2022 concerning for rupture of a hollow viscus including potentially a bowel. 2. There does appear to be a nonspecific mild wall thickening of the proximal duodenum. A nonspecific duodenitis is considered. 3. New small volume ascites. 4. There is some differential attenuation in the liver of unclear exact etiology. Recommend correlation with liver function tests. 5. Nonobstructing renal stones and findings suggestive of medullary nephrocalcinosis. No identified ureteral stone or hydronephrosis. 6. New trace to small right pleural effusion. Findings called at 0723 hours on April 06, 2022. Dictated by: Dictated on workstation # [id number] Dict: 04/06/22 0716 Trans: 04/06/22 0905 CVB [id number] Interpreted by: GABE VILLALPANDO MD Electronically signed by: GABE VILLALPANDO MD 04/06/22 0905 Assessment/Plan Assessment and Plan Assess & Plan/Chief Complaint Severe sepsis, UTI, duodenal perforation Diagnosis/Problems Diagnosis/Problems (1) Severe sepsis Status: Acute Assessment & Plan: Severe sepsis qualifiers: leukocytosis of 24.9, tachycardia, lactic acidosis 2.03 -> 1.92, source of infection UTI -Sepsis is secondary to UTI -Rocephin 1 gm -Pain management with morphine 2-4mg IVP Q2H -AM CBC, BMP (2) UTI (urinary tract infection) Status: Acute Assessment & Plan: Severe sepsis qualifiers: leukocytosis of 24.9, tachycardia, lactic acidosis 2.03 -> 1.92, source of infection UTI -Sepsis is likely secondary to UTI -Rocephin 1gm -Pain management with morphine 2-4mg IVP Q2H -Monitor urine output -Continue IVF with sodium chloride, 1000mls @ 150mls/hr. Monitor for signs of fluid retention, eg peripheral edema -AM CBC, BMP Qualifiers: Qualified Codes: N39.0 - Urinary tract infection, site not specified; R31.9 - Hematuria, unspecified (3) SOLITARIO (acute kidney injury) Status: Resolved Assessment & Plan: Cr 1.15, BUN 23 on 04/05 -> resolved on 04/06. Cr 0.78, BUN 7 -Continue to monitor with AM BMP -Monitor urine output -Continue IVF with sodium chloride 1000ml @ 150mls/hr Resolution Date/Time: 04/06/22 @ 13:49 (4) Hypertension Status: Acute Assessment & Plan: -Continue to monitor BP -Medication reconciliation and restart home medications as long as BP is stable (5) High anion gap metabolic acidosis Status: Acute Assessment & Plan: Anion gap of 23 on 04/05 -> 15 on 04/06 -Likely secondary to lactic acidosis, possibly uremia -Patient denies recent alcohol consumption or consumption of any substances -Continue to monitor with AM BMP -Continue IVF (6) Duodenal perforation Status: Acute Assessment & Plan: Appreciate plan per Surgery -Operative management on 04/06 -Flagyl 500mg -Hold Lovenox today, resume lovenox on 04/07 -Morphine 4mg Q2H PRN for pain management -Transition to PO pain management as patient improves -NGT in place for decompression -Herrera catheter in place, monitor urine output -SCDs in place -Close monitoring in ICU KAMI CHASE DO 04/06/221952: Assessment/Plan Assessment and Plan Assess & Plan/Chief Complaint Assessment: Severe sepsis Perforated duodenal ulcer Metabolic acidosis Plan: IV anx IVF ICU Supervisory-Addendum Brief Verification & Attestation Participated in pt care: history, MDM, physical Personally performed: exam, history, MDM, supervision of care Care discussed with: Medical Student Procedures: n/a Results interpretation: Verified all documentation Verification and Attestation of Medical Student E/M Service A medical student performed and documented this service in my presence. I reviewed and verified all information documented by the medical student and made modifications to such information, when appropriate. I personally performed the physical exam and medical decision making. Kami Chase, Apr 06, 2022,19:52 OXANA BURNETT Apr 06, 2022 13:39 KAMI CHASE DO Apr 06, 2022 19:53
[2022-04-06] MEDS: cefTRIAXone 1 GM/50 ML (PRE-MIX) IV SCH (15:37)
[2022-04-06] MEDS ORDERED: RT-ALBUTEROL SULF 2.5 MG/3 ML PRE-MIX VIAL INH PRN (16:15)
--- NOTE | 2022-04-06 16:23 | Progress Note ---
Standard Progress Note Progress Notes/Assess & Plan Date Seen by a Provider: Apr 06, 2022 Time Seen by a Provider: 12:00 Progress/Assessment & Plan Was seen to be consulted by EMR today. EMR records reviewed. At no point during my call period or after was I ever called/texted/notified of consult by any physician, nurse, or any other staff member. Dr. Metz consulted and seen patient and taken to surgery today. All medical and surgical management deferred to him. Focused Exam Lactate Level 04/04/22 23:05: Lactic Acid Level 2.03*H 04/05/22 02:20: Lactic Acid Level 1.92 04/06/22 06:32: Lactic Acid Level 1.63 Time of Focused Exam: 01:00 NEFTALI MA MD Apr 06, 2022 16:23
[2022-04-06] MEDS: PANTOPRAZOLE 40 MG (PROTONIX) VIAL IV SCH (21:13)
[2022-04-06] MEDS: metroNIDAZOLE 500MG/100ML IVPB 100 ML IV SCH (21:13)
[2022-04-06] MEDS: RT-ALBUTEROL SULF 2.5 MG/3 ML PRE-MIX VIAL INH SCH (22:01)
[2022-04-07] MEDS: RT-ALBUTEROL SULF 2.5 MG/3 ML PRE-MIX VIAL INH SCH ×4 (02:54→22:57)
--- NOTE | 2022-04-07 03:19 | OPERATIVE REPORT ---
DATE OF SERVICE: 04/06/2022 PREOPERATIVE DIAGNOSIS: Perforated hollow viscus. POSTOPERATIVE DIAGNOSIS: Duodenal perforation. PROCEDURE: Diagnostic laparoscopy to open with modified Mian patch for duodenal perforation. SURGEON: Donna Metz DO POLICE CAPTAIN SENIOR: Macho Castro DO, assisted with retraction, dissection, and closure. ANESTHESIA: General. ESTIMATED BLOOD LOSS: Minimal. COMPLICATIONS: None. INDICATIONS: The patient is a 36-year-old female right upper quadrant, right lower quadrant suprapubic abdominal pain. She was admitted. She had previous CAT scan on 04/01/2022. Due to worsening condition, a repeat CT scan was performed today, which demonstrated free air and no ascites. The patient was discussed risks and benefits of procedure and wished to proceed. A consent was signed and on chart. DESCRIPTION OF PROCEDURE: The patient was taken to the operating suite. She was prepped and draped in sterile fashion. Timeout was performed. Local anesthetic infiltrated just above the umbilicus. An 11 blade scalpel was used to make a small skin incision. Cautery was used to dissect down through the subcutaneous tissues to the fascia, which was then scored. The fascia was then grasped and elevated, the abdomen was then entered. The 5 mm pierce trocar was inserted and pneumoperitoneum was achieved. Gross succus throughout the entire abdomen with adhesions along the right gutter, also up to the liver and above the liver as well. A 5 mm trocar was placed in the left side of the abdomen under direct visualization of laparoscope. The fluid throughout the abdomen was then suctioned and irrigated. Blunt dissection was used to start taking some of the adhesions down. Difficult to assess the perforation site, suspected to be in the duodenum, we will continue to irrigate and suction. The right colon was inspected, which adhesions were mobilized, but did not see any perforation. At this point, in order to find the area of concern, felt it was most likely need to be done open. Using cautery cut, midline incision was extended. Adhesions to the gallbladder were taken down with cautery and blunt dissection. I was then able to visualize a small perforation in the duodenum, 0 Vicryl sutures were placed and then sutured down reapproximating the perforation and took a portion of the omentum and tucked it down into this area and then tied the tail of the suture into this area for a modified Mian patch. Copious amounts of irrigation was used to irrigate the area. Through the 5 mm trocar site, a 19 Darrian drain was then placed underneath the liver next to the Mian patch and then extended down into the right gutter. Copious amounts of irrigation was used to irrigate the abdomen and suctioned repeatedly until clear. No other pathology noted within the abdomen. The midline fascia was then closed using 1-0 looped PDS in a running fashion. The wound was then irrigated with copious amounts of irrigation and suctioned. Skin was then closed with alida. The 19 Darrian drain was secured with a 4-0 nylon. Prior to closure, the NG tube was checked within the stomach. The abdomen was then washed and dried and sterile bandages were applied. The patient tolerated procedure well. Still concern due to her being critical, she was taken to recovery room in stable condition. Job ID: [id number] DocumentID: [id number] Dictated Date: 04/06/2022 19:10:14 Director Of Income Tax Date: 04/07/2022 03:17:00 Dictated By: DONNA METZ DO
[2022-04-07] MEDS: NS IV 1000 ML 1,000 ML IV SCH ×3 (03:22→20:32)
[2022-04-07 03:58] LABS: BASOPHILS % (AUTO) 0 % (0-10); EOSINOPHILS % (AUTO) 0 % (0-10); HEMATOCRIT 29 % (35-52); HEMOGLOBIN 9.6 g/dL (11.5-16.0); LYMPHOCYTES # (AUTO) 1.9 10^3/uL (1.0-4.0); LYMPHOCYTES % (AUTO) 7 % (12-44); MEAN CORPUSCULAR HEMOGLOBIN 38 pg (25-34); MEAN CORPUSCULAR HGB CONC 33 g/dL (32-36); MEAN CORPUSCULAR VOLUME 116 fL (80-99); MEAN PLATELET VOLUME 10.9 fL (9.0-12.2); MONOCYTES # (AUTO) 1.1 10^3/uL (0.0-1.0); MONOCYTES % (AUTO) 5 % (0-12); NEUTROPHILS # (AUTO) 22.1 10^3/uL (1.8-7.8); NEUTROPHILS % (AUTO) 87 % (42-75); PLATELET COUNT 446 10^3/uL (130-400); WHITE BLOOD COUNT 25.4 10^3/uL (4.3-11.0)
[2022-04-07 04:26] LABS: ALBUMIN 2.5 GM/DL (3.2-4.5); POTASSIUM 3.6 MMOL/L (3.6-5.0)
[2022-04-07 04:29] LABS: TOTAL PROTEIN 4.9 GM/DL (6.4-8.2)
[2022-04-07 04:31] LABS: BILIRUBIN,TOTAL 0.5 MG/DL (0.1-1.0)
[2022-04-07 04:32] LABS: PHOSPHORUS 1.8 MG/DL (2.3-4.7)
[2022-04-07 04:33] LABS: CREATININE SERUM 0.69 MG/DL (0.60-1.30)
[2022-04-07 04:35] LABS: MAGNESIUM 1.4 MG/DL (1.6-2.4)
[2022-04-07] MEDS ORDERED: MAGNESIUM 1 GM/100 ML IVPB 200 ML IV ONE (05:06)
[2022-04-07] MEDS: KCL 20 MEQ TAB (K-DUR) PO SCH (05:13)
[2022-04-07] MEDS: POTASSIUM CL 10MEQ/50ML IVPB 50 ML IV SCH ×3 (05:13→06:21)
[2022-04-07] MEDS: MAGNESIUM 1 GM/100 ML IVPB 100 ML IV SCH ×3 (05:13→06:21)
[2022-04-07] MEDS ORDERED: KCL 20 MEQ TAB (K-DUR) PO ONE (05:15)
[2022-04-07] MEDS ORDERED: NS IV 500 ML 500 ML IV PRN (05:15)
[2022-04-07] MEDS ORDERED: POTASSIUM CL 10MEQ/50ML IVPB 100 ML IV ONE (05:16)
[2022-04-07] MEDS: metroNIDAZOLE 500MG/100ML IVPB 100 ML IV SCH ×3 (05:18→20:32)
--- NOTE | 2022-04-07 07:21 | Progress Note - Surgery ---
ERICK CHAVES 04/07/22 0721: Subjective Date Seen by a Provider: Apr 07, 2022 Time Seen by a Provider: 05:59 Subjective/Events-last exam S/P Diagnostic Laprascopy for Duodenal perforation Day 1 Pt was sitting up in bed w/o any complaints during the interview. Pt states she feels better than yesterday and has been getting peaceful sleep since surgery. Pt states that she has dry mouth that is resolved w/ wet swabs provided by [employer]. Abdominal pain is a 5-6/10 which is an improvement from 9/10 yesterday. 100mL output MELISSA w/ green consistency; Urine output w/in normal limits at 2.3cc/kg/hr during 4hr time span. Pt still hasn't had a bowel movement since Tuesday. Incision has some drainage. Pt endorses that she has cough, dry mouth, and midline abdominal pain. Review of Systems General: No Chills HEENT: No Head Aches; Other (Dry Mouth) Pulmonary: No Dyspnea; Cough Cardiovascular: No: Chest Pain, Palpitations Gastrointestinal: No: Nausea, Vomiting, Diarrhea Focused Exam Lactate Level 04/04/22 23:05: Lactic Acid Level 2.03*H 04/05/22 02:20: Lactic Acid Level 1.92 04/06/22 06:32: Lactic Acid Level 1.63 Time of Focused Exam: 01:00 Objective Exam Vital Signs Date Time Temp Pulse Resp B/P (MAP) Pulse Ox O2 Delivery O2 Flow Rate FiO2 04/07/22 07:08 97 Room Air 0.00 04/07/22 06:00 131 29 116/70 (85) 91 Room Air 04/07/22 05:00 128 128/82 (97) 90 Room Air 04/07/22 04:00 121 18 119/65 (83) 91 Room Air 04/07/22 03:49 92 Room Air 04/07/22 03:49 37.1 123 21 117/79 (92) 92 Room Air 04/07/22 02:55 92 Room Air 0.00 04/07/22 02:00 111 19 111/62 (82) 91 Room Air 04/07/22 01:00 114 118/65 (83) 93 Room Air 04/07/22 01:00 114 04/07/22 00:09 36.4 95 Room Air 04/07/22 00:01 118 18 103/85 (91) 95 Room Air 04/06/22 23:59 95 Room Air 04/06/22 23:00 114 19 92/73 (82) 94 Room Air 04/06/22 22:19 36.1 04/06/22 22:01 95 Room Air 0.00 04/06/22 22:00 112 108/65 (87) 94 Room Air 04/06/22 21:00 106 18 102/55 (73) 94 Room Air 04/06/22 20:18 37.2 04/06/22 20:00 96 Room Air 04/06/22 20:00 120 25 95/64 (77) 95 Room Air 04/06/22 19:47 37.2 04/06/22 19:00 114 20 101/62 (80) 94 Room Air 04/06/22 19:00 114 04/06/22 18:33 24 04/06/22 18:03 27 04/06/22 18:00 123 28 131/74 (93) 95 Room Air 04/06/22 17:00 116 21 113/64 (80) 94 Room Air 04/06/22 16:30 94 Room Air 04/06/22 16:00 115 19 123/62 (82) 94 Room Air 04/06/22 15:00 114 19 117/66 (83) 95 Room Air 04/06/22 14:00 115 20 129/76 (93) 95 Room Air 04/06/22 13:01 117 04/06/22 13:00 118 21 120/76 (91) 95 Room Air 04/06/22 12:15 112 18 120/78 (92) 92 Room Air 04/06/22 12:04 120 04/06/22 12:00 113 20 129/80 (96) 92 Room Air 04/06/22 12:00 93 Room Air 04/06/22 11:55 37.0 110 16 120/78 (92) 93 Room Air 04/06/22 11:55 Room Air 04/06/22 11:50 36.9 20 112/63 (79) 95 Room Air 04/06/22 11:45 119 130/93 (105) Room Air 04/06/22 11:45 Room Air 04/06/22 11:40 20 112/63 (79) 92 Room Air 04/06/22 11:30 Room Air 04/06/22 11:30 20 122/84 (97) 95 Room Air 04/06/22 11:20 20 113/91 (98) 95 OxyMask 4.00 04/06/22 11:15 OxyMask 4.00 04/06/22 11:10 20 125/81 (96) 98 OxyMask 4.00 04/06/22 11:00 OxyMask 6.00 04/06/22 11:00 24 111/51 (71) 96 OxyMask 6.00 04/06/22 10:52 OxyMask 6.00 04/06/22 10:52 36.7 24 113/60 (77) 94 OxyMask 6.00 04/06/22 08:00 98 Room Air 0.00 I & O 04/07/22 07:00 Intake Total 4600 ml Output Total 1675 ml Balance 2925 ml Capillary Refill : Less Than 3 SecondsLess Than 3 Seconds General Appearance: Mild Distress HEENT: PERRL/EOMI Neck: Normal Inspection Respiratory: Other (coarse breath sounds bilaterally) Cardiovascular: No Murmur, Tachycardia (with regular rate) Peripheral Pulses: 3+ Dorsalis Pedis (R), 3+ Left Dors-Pedis (L), 3+ Radial Pulses (R), 3+ Radial Pulses (L) Gastrointestinal: guarding, tenderness (Midline) Extremity: No Pedal Edema Neurologic/Psychiatric: Alert, Oriented x3 Skin: Normal Color, Warm/Dry Results Lab Laboratory Tests 04/07/22 03:36: White Blood Count 25.4H, Red Blood Count 2.50L, Hemoglobin 9.6L, Hematocrit 29L, Mean Corpuscular Volume 116H, Mean Corpuscular Hemoglobin 38H, Mean Corpuscular Hemoglobin Concent 33, Red Cell Distribution Width 13.5, Platelet Count 446H, Mean Platelet Volume 10.9, Immature Granulocyte % (Auto) 1, Neutrophils (%) (Auto) 87H, Lymphocytes (%) (Auto) 7L, Monocytes (%) (Auto) 5, Eosinophils (%) (Auto) 0, Basophils (%) (Auto) 0, Neutrophils # (Auto) 22.1H, Lymphocytes # (Auto) 1.9, Monocytes # (Auto) 1.1H, Eosinophils # (Auto) 0.0, Basophils # (Auto) 0.0, Immature Granulocyte # (Auto) 0.2H, Sodium Level 140, Potassium Level 3.6, Chloride Level 116H, Carbon Dioxide Level 11L, Anion Gap 13, Blood Urea Nitrogen 9, Creatinine 0.69, Estimat Glomerular Filtration Rate 115, BUN/Creatinine Ratio 13, Glucose Level 115H, Calcium Level 8.0L, Corrected Calcium 9.2, Phosphorus Level 1.8L, Magnesium Level 1.4L, Total Bilirubin 0.5, Aspartate Amino Transf (AST/SGOT) 35H, Alanine Aminotransferase (ALT/SGPT) 19, Alkaline Phosphatase 45, Total Protein 4.9L, Albumin 2.5L Microbiology 04/06/22 MRSA Screen - Final, Complete MRSA not isolated 04/05/22 Wet Prep - Final, Complete 04/04/22 Blood Culture - Preliminary, Resulted No growth 04/04/22 Urine Culture - Final, Complete Escherichia coli See Comments Assessment/Plan Assessment/Plan Assessment/Plan S/P Diagnostic Laparoscopy due to Duodenal perforation Day 1 abdominal pain- Previously RUQ RLQ suprapubic now currently Midline Sepsis with pneumoperitoneum, suspect hollow viscus perforation ascities n/v UTI metabolic acidosis leukocytosis Pain Improved Continue Pain Control Continue IVF Continue Flagyl and Rocephin Continue NPO Continue NGT until normal bowel function returns; Signs of improvement consider obtain repeat abdominal x-ray w/ water contrast confirm perforation sealed Continue IV flagyl and rocephin DONNA METZ DO 04/07/22 1119: Subjective Subjective/Events-last exam Sitting in chair. Pain better than yesterday. Still with pain though. Not using IS. WBC is slightly decreased. Denies n/v fever sweats chills shortness of breath or chest pain. Has bile tinged output from melissa drain. Objective Exam General Appearance: No Apparent Distress, Anxious HEENT: PERRL/EOMI, Normal ENT Inspection Neck: Normal Inspection, Non Tender Respiratory: Chest Non Tender, No Accessory Muscle Use, Other (coarse breath sounds bilaterally) Cardiovascular: Tachycardia (with regular rate) Gastrointestinal: soft; No guarding; tenderness (Midline), other (melissa bile tinged/serous output) Extremity: Non Tender, No Calf Tenderness Neurologic/Psychiatric: Alert, Oriented x3 Skin: Normal Color, Warm/Dry Lymphatic: No Adenopathy Assessment/Plan Assessment/Plan Assessment/Plan S/P Diagnostic Laparoscopy due to Duodenal perforation Day 1 abdominal pain- Previously RUQ RLQ suprapubic now currently Midline Sepsis with pneumoperitoneum, suspect hollow viscus perforation ascities n/v UTI metabolic acidosis leukocytosis Pain Improved Continue Pain Control Continue IVF Continue Flagyl/Rocephin/Diflucan Continue NPO Continue NGT MELISSA drain STRICT NPO PICC line Went over IS and how to use. Had long discussion about findings of surgery. Patient upset about overall situation and states questions not being answered. Answered all patient questions. Still upset but better understanding. Supervisory-Addendum Brief Verification & Attestation Participated in pt care: history, MDM, physical Personally performed: exam, history, MDM, supervision of care Care discussed with: Medical Student Procedures: n/a Results interpretation: Verified all documentation Verification and Attestation of Medical Student E/M Service A medical student performed and documented this service in my presence. I reviewed and verified all information documented by the medical student and made modifications to such information, when appropriate. I personally performed the physical exam and medical decision making. Donna Metz, Apr 07, 2022,11:22 ERICK CHAVES Apr 07, 2022 07:21 DONNA METZ DO Apr 07, 2022 11:19
[2022-04-07] MEDS: FLUCONAZOLE 200 MG/100 ML 100 ML IV SCH (08:28)
[2022-04-07] MEDS: PANTOPRAZOLE 40 MG (PROTONIX) VIAL IV SCH ×2 (08:28→20:32)
[2022-04-07] MEDS ORDERED: POTASSIUM PHOSPHATE INJ 30 MM in NS (IVPB) 250 ML IV ONE (08:30)
[2022-04-07] MEDS: ENOXAPARIN 40 MG/0.4 ML (LOVENOX) SYR SC SCH (08:40)
--- NOTE | 2022-04-07 15:15 | Tele-ICU Progress Note ---
Subjective Date Seen by a Provider: Apr 07, 2022 Time Seen by a Provider: 15:14 Subjective/Events-last exam (Tele-ICU Physician , consultation) Available chart/ vitals / labs / Images reviewed H&P is from ER notes Patient's information available about PMH, allergy reviewed in EMR. ROS as per chart and RN report Video assessment done using teleICU camera, rest of exam as per RN Discussed with RN. She is not a 36-year-old female with past medical history of hypertension and colitis presented to the emergency room 129 with nausea vomiting and abdominal pain and presyncopal episode. Subsequently she went on to septic shock. CT of the abdomen revealed free air in the abdomen suggestive of hollow viscus perforation. She underwent exploratory laparotomy on 04/06/2022 and found to have a duodenal ulcer perforation which was repaired with a Mian patch. Currently she is extubated. NG tube in place. Abdominal pain markedly improved. Tachycardia improved she is resting comfortably in the bed. Reviewed with AGRICULTURAL SALES REPRESENTATIVE. Impression 1. 1. Septic shock secondary to acute peritonitis 2. Perforated duodenal ulcer with peritonitis 3. Septic shock improving 4. Urinary tract infection 5. Acute kidney injury improving 6. Increased anion gap metabolic acidosis resolved. 7. Hypomagnesemia total phosphatemia. Recommendations 1. Continue IV antibiotics for the general surgeon 2. IV fluids per the general surgeon 3. Hydromorphone for pain management 4. DVT prophylaxis and ulcer prophylaxis. Coordination of care with bedside consultants and primary care physician. Sepsis Event Evaluation Height, Weight, BMI Height: 4'9.00" Weight: 170lbs. 8.0oz. [id number]; 33.81 BMI Method:Stated Focused Exam Lactate Level 04/04/22 23:05: Lactic Acid Level 2.03*H 04/05/22 02:20: Lactic Acid Level 1.92 04/06/22 06:32: Lactic Acid Level 1.63 Time of Focused Exam: 01:00 Exam Exam Patient acknowledged, consented, and participated in this virtual visit which was conducted using real time audio/video Vital Signs Date Time Temp Pulse Resp B/P (MAP) Pulse Ox O2 Delivery O2 Flow Rate FiO2 04/07/22 14:43 100 Room Air 0.00 04/07/22 14:00 111 14 112/62 (79) 100 Room Air 04/07/22 13:55 107 04/07/22 13:00 122 29 90 Room Air 04/07/22 12:00 121 31 114/80 (91) 91 Room Air 04/07/22 12:00 94 Room Air 0.00 04/07/22 11:00 125 14 109/76 (87) 94 Room Air 04/07/22 10:00 130 21 109/97 (101) 94 Room Air 04/07/22 09:00 128 22 106/71 (83) 92 Room Air 04/07/22 08:00 37.0 04/07/22 08:00 97 Room Air 0.00 04/07/22 08:00 124 27 117/57 (77) 88 Room Air 04/07/22 07:18 130 04/07/22 07:08 97 Room Air 0.00 04/07/22 07:00 129 27 106/72 (83) 89 Room Air 04/07/22 06:00 131 29 116/70 (85) 91 Room Air 04/07/22 05:00 128 128/82 (97) 90 Room Air 04/07/22 04:00 121 18 119/65 (83) 91 Room Air 04/07/22 03:49 92 Room Air 04/07/22 03:49 37.1 123 21 117/79 (92) 92 Room Air 04/07/22 02:55 92 Room Air 0.00 04/07/22 02:00 111 19 111/62 (82) 91 Room Air 04/07/22 01:00 114 118/65 (83) 93 Room Air 04/07/22 01:00 114 04/07/22 00:09 36.4 95 Room Air 04/07/22 00:01 118 18 103/85 (91) 95 Room Air 04/06/22 23:59 95 Room Air 04/06/22 23:00 114 19 92/73 (82) 94 Room Air 04/06/22 22:19 36.1 04/06/22 22:01 95 Room Air 0.00 04/06/22 22:00 112 108/65 (87) 94 Room Air 04/06/22 21:00 106 18 102/55 (73) 94 Room Air 04/06/22 20:18 37.2 04/06/22 20:00 96 Room Air 04/06/22 20:00 120 25 95/64 (77) 95 Room Air 04/06/22 19:47 37.2 04/06/22 19:00 114 20 101/62 (80) 94 Room Air 04/06/22 19:00 114 04/06/22 18:33 24 04/06/22 18:03 27 04/06/22 18:00 123 28 131/74 (93) 95 Room Air 04/06/22 17:00 116 21 113/64 (80) 94 Room Air 04/06/22 16:30 94 Room Air 04/06/22 16:00 115 19 123/62 (82) 94 Room Air I & O 04/07/22 07:00 Intake Total 4600 ml Output Total 1675 ml Balance 2925 ml Height & Weight Height: 4'9.00" Weight: 170lbs. 8.0oz. 77.490985pe; 33.81 BMI Method:Stated General Appearance: No Apparent Distress, Anxious HEENT: PERRL/EOMI, Normal ENT Inspection Neck: Normal Inspection, Non Tender Respiratory: Chest Non Tender, No Accessory Muscle Use, Other (coarse breath sounds bilaterally) Cardiovascular: Tachycardia (with regular rate) Capillary Refill: Less Than 3 Seconds Peripheral Pulses: 3+ Dorsalis Pedis (R), 3+ Left Dors-Pedis (L), 3+ Radial Pulses (R), 3+ Radial Pulses (L) Gastrointestinal: soft; No guarding; tenderness (Midline), other (melissa bile tinged/serous output) Extremity: Non Tender, No Calf Tenderness Neurologic/Psychiatric: Alert, Oriented x3 Skin: Normal Color, Warm/Dry Lymphatic: No Adenopathy Other comments PE PER RN Results Lab Laboratory Tests 04/06/22 05:00 04/07/22 03:36 Assessment/Plan Assessment/Plan ABOVE Critical Care: Critically Ill Patient Time spent with patient (mins): 15 CASSI JASON MD Apr 07, 2022 15:15
[2022-04-07] MEDS: cefTRIAXone 1 GM/50 ML (PRE-MIX) IV SCH (16:48)
--- NOTE | 2022-04-07 19:16 | Progress Note ---
OXANA BURNETT 04/07/221915: Subjective Date Seen by a Provider: Apr 07, 2022 Time Seen by a Provider: 09:30 Subjective/Events-last exam Ms. Reyes is a 36 y/o female with a PMHx of HTN and colitis who presented to the [facility] ED on 04/04 with nausea, vomiting, abdominal pain, and an episode of pre- syncope. Patient has been admitted to the Hospitalist service for management of severe sepsis secondary to UTI. Sepsis qualifiers include leukocytosis, tachycardia, lactic acidosis, and a known source of infection. On 04/06 CT of the abdomen and pelvis demonstrated new free peritoneal air with non specific mild wall thickening of the duodenum. Surgery was consulted and the patient was taken to the OR for repair of duodenal perforation. Today, 04/07, is post-operative day 1. The patient reports her pain is improving today and is well-controlled with dilaudid ADOPTION SERVICES MANAGER. The patient reports she is using the pump less frequently and is trying not to need it. The patient has passed flatus, denies BM. NGT is still in place. During the encounter the patient moved to the recliner from her bed with minimal assistance. Review of Systems General: No Chills HEENT: No Head Aches, No Visual Changes Pulmonary: Dyspnea; No Cough Cardiovascular: No: Chest Pain Gastrointestinal: Abdominal Pain (mid-line, lower abdomen); No: Nausea, Vomiting Genitourinary: Other (urinary catheter in place) Neurological: No: Weakness, Numbness Focused Exam Lactate Level 04/04/22 23:05: Lactic Acid Level 2.03*H 04/05/22 02:20: Lactic Acid Level 1.92 04/06/22 06:32: Lactic Acid Level 1.63 Time of Focused Exam: 01:00 Objective Exam Last Set of Vital Signs Vital Signs Date Time Temp Pulse Resp B/P (MAP) Pulse Ox O2 Delivery O2 Flow Rate FiO2 04/07/22 18:00 111 13 109/68 (82) 99 Room Air 04/07/22 16:37 36.5 04/07/22 16:00 0.00 04/05/22 03:05 21 Capillary Refill : Less Than 3 SecondsLess Than 3 Seconds I&O Intake and Output 04/07/22 00:00 Intake Total 3650 ml Output Total 1025 ml Balance 2625 ml Intake Oral 300 ml IV Total 3350 ml Output Urine Total 550 ml Drainage Total 475 ml # Voids 2 General: Alert, Oriented X3, No Acute Distress HEENT: Atraumatic Lungs: Other (coarse breath sounds bilaterally) Heart: Other (tachycardia) Abdomen: Normal Bowel Sounds, Other (appropriate tenderness over incision, no distension) Extremities: No Edema (trace bilateral LE edema) Skin: No Rashes Neuro: Normal Speech Psych/Mental Status: Mental Status NL, Mood NL Results Lab Laboratory Tests 04/07/22 03:36: White Blood Count 25.4H, Red Blood Count 2.50L, Hemoglobin 9.6L, Hematocrit 29L, Mean Corpuscular Volume 116H, Mean Corpuscular Hemoglobin 38H, Mean Corpuscular Hemoglobin Concent 33, Red Cell Distribution Width 13.5, Platelet Count 446H, Mean Platelet Volume 10.9, Immature Granulocyte % (Auto) 1, Neutrophils (%) (Auto) 87H, Lymphocytes (%) (Auto) 7L, Monocytes (%) (Auto) 5, Eosinophils (%) (Auto) 0, Basophils (%) (Auto) 0, Neutrophils # (Auto) 22.1H, Lymphocytes # (Auto) 1.9, Monocytes # (Auto) 1.1H, Eosinophils # (Auto) 0.0, Basophils # (Auto) 0.0, Immature Granulocyte # (Auto) 0.2H, Sodium Level 140, Potassium Level 3.6, Chloride Level 116H, Carbon Dioxide Level 11L, Anion Gap 13, Blood Urea Nitrogen 9, Creatinine 0.69, Estimat Glomerular Filtration Rate 115, BUN/Creatinine Ratio 13, Glucose Level 115H, Calcium Level 8.0L, Corrected Calcium 9.2, Phosphorus Level 1.8L, Magnesium Level 1.4L, Total Bilirubin 0.5, Aspartate Amino Transf (AST/SGOT) 35H, Alanine Aminotransferase (ALT/SGPT) 19, Alkaline Phosphatase 45, Total Protein 4.9L, Albumin 2.5L Microbiology 04/06/22 MRSA Screen - Final, Complete MRSA not isolated 04/05/22 Wet Prep - Final, Complete 04/04/22 Blood Culture - Preliminary, Resulted No growth 04/04/22 Urine Culture - Final, Complete Escherichia coli See Comments Assessment/Plan Assessment/Plan Assess & Plan/Chief Complaint Sepsis, UTI, duodenal perforation Diagnosis/Problems Diagnosis/Problems (1) Severe sepsis Status: Acute Assessment & Plan: Severe sepsis qualifiers: leukocytosis of 24.9, tachycardia, lactic acidosis 2.03 -> 1.92, source of infection likely UTI -Sepsis is likely secondary to UTI -Rocephin 1 gm -AM CBC, BMP (2) UTI (urinary tract infection) Status: Acute Assessment & Plan: Severe sepsis qualifiers: leukocytosis of 24.9, tachycardia, lactic acidosis 2.03 -> 1.92, source of infection UTI -Sepsis is likely secondary to UTI -Rocephin 1gm -Monitor urine output -Continue IVF with sodium chloride, 1000mls @ 150mls/hr. Monitor for signs of fluid retention, eg peripheral edema -AM CBC, BMP Qualifiers: Qualified Codes: N39.0 - Urinary tract infection, site not specified; R31.9 - Hematuria, unspecified (3) SOLITARIO (acute kidney injury) Status: Resolved Assessment & Plan: Cr 1.15, BUN 23 on 04/05 -> resolved on 04/06. Cr 0.78, BUN 7 -Continue to monitor with AM BMP -Monitor urine output -Continue IVF with sodium chloride 1000ml @ 150mls/hr Resolution Date/Time: 04/06/22 @ 13:49 (4) Hypertension Status: Acute Assessment & Plan: -Continue to monitor BP -Medication reconciliation and restart home medications as long as BP is stable (5) High anion gap metabolic acidosis Status: Resolved Assessment & Plan: Anion gap of 23 on 04/05 -> 15 on 04/06 -> 13 on 04/07 resolved -Likely secondary to lactic acidosis, possibly uremia -Patient denies recent alcohol consumption or consumption of any substances -Continue to monitor with AM BMP -Continue IVF Resolution Date/Time: 04/07/22 @ 19:20 (6) Duodenal perforation Status: Acute Assessment & Plan: Appreciate plan per Surgery -Operative management on 04/06 -Flagyl 500mg -Resume lovenox on 04/07 -Dilaudid ADOPTION SERVICES MANAGER for pain management -Transition to PO pain management as patient improves -NGT in place for decompression -Herrera catheter in place, monitor urine output -SCDs in place -Close monitoring in ICU, transition to fourth floor anticipated for 04/08 ADDIE RESENDIZ MD 04/07/22 1950: Supervisory-Addendum Brief Verification & Attestation Participated in pt care: history, MDM, physical Personally performed: exam, history, MDM, supervision of care Care discussed with: Medical Student Procedures: n/a Verification and Attestation of Medical Student E/M Service A medical student performed and documented this service in my presence. I reviewed and verified all information documented by the medical student and made modifications to such information, when appropriate. I personally performed the physical exam and medical decision making. Addie Resendiz, Apr 07, 2022,19:49 OXANA BURNETT Apr 07, 2022 19:16 ADDIE RESENDIZ MD Apr 07, 2022 19:50
[2022-04-08] MEDS: RT-ALBUTEROL SULF 2.5 MG/3 ML PRE-MIX VIAL INH SCH ×2 (02:14→10:51)
[2022-04-08] MEDS: NS IV 1000 ML 1,000 ML IV SCH ×4 (02:44→18:00)
[2022-04-08] MEDS: metroNIDAZOLE 500MG/100ML IVPB 100 ML IV SCH ×3 (05:37→21:38)
[2022-04-08 06:35] LABS: ALBUMIN 2.4 GM/DL (3.2-4.5)
[2022-04-08 06:36] LABS: POTASSIUM 3.7 MMOL/L (3.6-5.0)
[2022-04-08 06:37] LABS: CALCIUM 7.8 MG/DL (8.5-10.1)
[2022-04-08 06:38] LABS: TOTAL PROTEIN 5.1 GM/DL (6.4-8.2)
[2022-04-08 06:40] LABS: BILIRUBIN,TOTAL 0.5 MG/DL (0.1-1.0)
[2022-04-08 06:41] LABS: PHOSPHORUS 1.6 MG/DL (2.3-4.7)
[2022-04-08 06:42] LABS: CREATININE SERUM 0.58 MG/DL (0.60-1.30)
[2022-04-08 06:44] LABS: MAGNESIUM 1.8 MG/DL (1.6-2.4)
[2022-04-08 06:45] LABS: BASOPHILS % (AUTO) 0 % (0-10); EOSINOPHILS % (AUTO) 0 % (0-10); HEMATOCRIT 24 % (35-52); HEMOGLOBIN 7.9 g/dL (11.5-16.0); LYMPHOCYTES # (AUTO) 1.6 10^3/uL (1.0-4.0); LYMPHOCYTES % (AUTO) 9 % (12-44); MEAN CORPUSCULAR HEMOGLOBIN 39 pg (25-34); MEAN CORPUSCULAR HGB CONC 32 g/dL (32-36); MEAN CORPUSCULAR VOLUME 121 fL (80-99); MEAN PLATELET VOLUME 11.3 fL (9.0-12.2); MONOCYTES # (AUTO) 0.6 10^3/uL (0.0-1.0); MONOCYTES % (AUTO) 4 % (0-12); NEUTROPHILS % (AUTO) 87 % (42-75); PLATELET COUNT 446 10^3/uL (130-400); WHITE BLOOD COUNT 18.4 10^3/uL (4.3-11.0)
[2022-04-08] MEDS: KCL 20 MEQ TAB (K-DUR) PO SCH (06:48)
[2022-04-08] MEDS: POTASSIUM CL 10MEQ/50ML IVPB 50 ML IV SCH (06:48)
[2022-04-08] MEDS: MAGNESIUM 1 GM/100 ML IVPB 100 ML IV SCH (06:49)
--- NOTE | 2022-04-08 07:16 | Progress Note - Surgery ---
ERICK CHAVES 04/08/22 0716: Subjective Date Seen by a Provider: Apr 08, 2022 Time Seen by a Provider: 06:30 Subjective/Events-last exam Pt was seen and laying in bed sleeping before interview. Pt seems to be doing well, states pain is a 2-3/10 currently w/ aid of pain medications. No complaints at this time. Yesterday pt was walking as tolerated, but didn't want to walk during the insulation manager. Nurse states she has been using the HARDENING MACHINE OPERATOR pump a lot less than yesterday. STONE has about 5mL output w/ serosang consistency. 410 output NGT yesterday, and about 250 today since start of insulation manager. Urine output has been good and Herrera will be discontinued this morning. Pt has been passing gas but still hasn't had bowel movement since Tuesday. Review of Systems General: No Chills Pulmonary: No Dyspnea, No Cough Cardiovascular: Edema; No: Chest Pain, Palpitations Gastrointestinal: Abdominal Pain (slight diffuse abdominal pain.); No: Nausea, Vomiting, Diarrhea Neurological: No: Numbness Focused Exam Lactate Level 04/06/22 06:32: Lactic Acid Level 1.63 Time of Focused Exam: 01:00 Objective Exam Vital Signs Date Time Temp Pulse Resp B/P (MAP) Pulse Ox O2 Delivery O2 Flow Rate FiO2 04/08/22 06:48 36.2 19 04/08/22 06:00 114 19 120/67 (84) 100 Room Air 04/08/22 05:00 104 14 105/61 (76) 98 Room Air 04/08/22 04:00 107 13 121/74 (90) 98 Room Air 04/08/22 03:49 36.5 93 Room Air 04/08/22 03:41 95 Room Air 04/08/22 03:00 108 13 110/63 (79) 99 Room Air 04/08/22 02:14 99 Room Air 04/08/22 02:00 105 14 112/73 (86) 98 Room Air 04/08/22 01:00 101 04/08/22 01:00 102 12 117/63 (81) 97 Room Air 04/08/22 00:00 107 14 119/72 (88) 96 Room Air 04/08/22 00:00 36.2 95 Room Air 04/07/22 23:59 93 Room Air 04/07/22 23:00 110 15 112/56 (74) 99 Room Air 04/07/22 22:57 98 Room Air 04/07/22 22:00 103 14 110/64 (79) 93 Room Air 04/07/22 21:00 110 13 102/53 (69) 92 Room Air 04/07/22 20:14 36.7 04/07/22 20:02 36.7 04/07/22 20:01 20 04/07/22 20:00 114 15 123/64 (83) 99 Room Air 04/07/22 19:46 96 Room Air 04/07/22 19:00 112 21 115/74 (88) 100 Room Air 04/07/22 19:00 110 04/07/22 18:00 111 13 109/68 (82) 99 Room Air 04/07/22 17:50 20 04/07/22 17:00 120 20 119/63 (81) 95 Room Air 04/07/22 16:37 36.5 04/07/22 16:00 95 Room Air 0.00 04/07/22 16:00 112 13 106/61 (76) 95 Room Air 04/07/22 15:00 123 18 106/66 (79) 100 Room Air 04/07/22 14:43 100 Room Air 0.00 04/07/22 14:00 111 14 112/62 (79) 100 Room Air 04/07/22 13:55 107 04/07/22 13:00 122 29 90 Room Air 04/07/22 12:00 121 31 114/80 (91) 91 Room Air 04/07/22 12:00 94 Room Air 0.00 04/07/22 11:00 125 14 109/76 (87) 94 Room Air 04/07/22 10:00 130 21 109/97 (101) 94 Room Air 04/07/22 09:00 128 22 106/71 (83) 92 Room Air 04/07/22 08:00 37.0 04/07/22 08:00 97 Room Air 0.00 04/07/22 08:00 124 27 117/57 (77) 88 Room Air 04/07/22 07:18 130 I & O 04/08/22 07:00 Intake Total 2450 ml Output Total 2270 ml Balance 180 ml Capillary Refill : Less Than 3 SecondsLess Than 3 Seconds General Appearance: No Apparent Distress HEENT: PERRL/EOMI, Normal ENT Inspection Neck: Normal Inspection, Non Tender Respiratory: Chest Non Tender, Lungs Clear, Normal Breath Sounds, No Accessory Muscle Use, Other (coarse breath sounds bilaterally) Cardiovascular: Regular Rate, Rhythm, No Edema, No Murmur, Normal Peripheral Pulses, Tachycardia (with regular rate) Peripheral Pulses: 3+ Radial Pulses (R), 3+ Radial Pulses (L) Gastrointestinal: normal bowel sounds, soft, abnormal bowel sounds; No guarding; tenderness (Diffuse ), other (stone serosang output) Extremity: Non Tender, No Calf Tenderness Neurologic/Psychiatric: Alert, Oriented x3 Skin: Normal Color, Warm/Dry Lymphatic: No Adenopathy Results Lab Laboratory Tests 04/08/22 06:16: White Blood Count 18.4H, Red Blood Count 2.02L, Hemoglobin 7.9L, Hematocrit 24L, Mean Corpuscular Volume 121H, Mean Corpuscular Hemoglobin 39H, Mean Corpuscular Hemoglobin Concent 32, Red Cell Distribution Width 14.0, Platelet Count 446H, Mean Platelet Volume 11.3, Immature Granulocyte % (Auto) 1, Neutrophils (%) (Auto) 87H, Lymphocytes (%) (Auto) 9L, Monocytes (%) (Auto) 4, Eosinophils (%) (Auto) 0, Basophils (%) (Auto) 0, Neutrophils # (Auto) 16.0H, Lymphocytes # (Auto) 1.6, Monocytes # (Auto) 0.6, Eosinophils # (Auto) 0.0, Basophils # (Auto) 0.0, Immature Granulocyte # (Auto) 0.1, Sodium Level 138, Potassium Level 3.7, Chloride Level 116H, Carbon Dioxide Level 12L, Anion Gap 10, Blood Urea Nitrogen 8, Creatinine 0.58L, Estimat Glomerular Filtration Rate 119, BUN/Creatinine Ratio 14, Glucose Level 87, Calcium Level 7.8L, Corrected Calcium 9.1, Phosphorus Level 1.6L, Magnesium Level 1.8, Total Bilirubin 0.5, Aspartate Amino Transf (AST/SGOT) 78H, Alanine Aminotransferase (ALT/SGPT) 24, Alkaline Phosphatase 230H, Total Protein 5.1L, Albumin 2.4L Microbiology 04/06/22 MRSA Screen - Final, Complete MRSA not isolated 04/05/22 Wet Prep - Final, Complete 04/04/22 Blood Culture - Preliminary, Resulted No growth 04/04/22 Urine Culture - Final, Complete Escherichia coli See Comments Assessment/Plan Assessment/Plan Assessment/Plan S/P Diagnostic Laparoscopy due to Duodenal perforation Day 2 abdominal pain- Previously RUQ RLQ suprapubic now currently Diffuse but minimal pain or 2-3/10 Sepsis with pneumoperitoneum, suspect hollow viscus perforation ascities n/v UTI metabolic acidosis leukocytosis Elevated AlkPhos Consider RUQ ultrasound due to elevated alk phos (230U/L today and yesterday 45U/L) Pain Improved Continue Pain Control Continue IVF Continue Flagyl/Rocephin/Diflucan Continue NPO Continue NGT STONE drain STRICT NPO DONNA METZ DO 04/08/22 5615: Subjective Subjective/Events-last exam Patient pain continues to improve. NPO. Stone serosang very minimal bile a ppearance. Using IS some. and trying to get better. Ng tube is bothering her. Urine output good. No bowel function. WBC improving. Objective Exam General Appearance: No Apparent Distress, Anxious HEENT: PERRL/EOMI, Normal ENT Inspection, Other (NG tube) Neck: Normal Inspection, Non Tender Respiratory: Chest Non Tender, Normal Breath Sounds, No Accessory Muscle Use Cardiovascular: No JVD, Tachycardia (with regular rate) Gastrointestinal: soft, tenderness (incisional, incisons c/di no signs of infection.), other (stone serosang output scant bile tinged) Extremity: Non Tender, No Calf Tenderness Neurologic/Psychiatric: Alert, Oriented x3 Skin: Normal Color, Warm/Dry Lymphatic: No Adenopathy Assessment/Plan Assessment/Plan Assessment/Plan S/P Diagnostic Laparoscopy due to Duodenal perforation abdominal pain diffuse- improving now more incisional Sepsis with pneumoperitoneum, suspect hollow viscus perforation-duodenal perf ascities n/v UTI metabolic acidosis leukocytosis Elevated AlkPhos Pain Improved Continue Pain Control Continue IVF Continue Flagyl/Rocephin/Diflucan Continue NPO Continue NGT STONE drain STRICT NPO Discussed picc line patient refused, concern for poor iv and losing access will get UGI study to evaluate for leak after POD 5 likely Tuesday. Patient became very upset with me today when discussing her care. She is not happy with my bedside manner and stated that I was pushing her buttons on purpose just to get off. She says I am not answering any of her questions. I asked her what her questions were and addressed everything she had a question on with Lilian her nurse at bedside. I asked what I could do to help her further to meet the care that she is wanting. She does not feel she can trust me completely. She states that she is taking care of her families needs/concerns at home having to arrange care from the hospital. I offered to have social work come and discuss those needs to see if anything could be arranged that would assist with those needs. She declined. She started to get more upset telling me that I am not sympathetic to her situation and that I do not understand and again informing me that i have a poor bedside manner. I asked if she would like a different surgeon to manage her care and she declines. She informed me that she does have a complaint about my bedside manner again. I offered to have management/administration come talk to her. She does want to have discuss with them so I notified Julianne the 4th hardwood flooring specialist of her request. Supervisory-Addendum Brief Verification & Attestation Participated in pt care: history, MDM, physical Personally performed: exam, history, MDM, supervision of care Care discussed with: Medical Student Procedures: n/a Results interpretation: Verified all documentation Verification and Attestation of Medical Student E/M Service A medical student performed and documented this service in my presence. I reviewed and verified all information documented by the medical student and made modifications to such information, when appropriate. I personally performed the physical exam and medical decision making. Donna Metz, Apr 08, 2022,13:15 ERICK CHAVES Apr 08, 2022 07:16 DONNA METZ DO Apr 08, 2022 23:15
[2022-04-08] MEDS: PANTOPRAZOLE 40 MG (PROTONIX) VIAL IV SCH ×2 (08:47→20:14)
[2022-04-08] MEDS: FLUCONAZOLE 200 MG/100 ML 100 ML IV SCH (08:47)
[2022-04-08] MEDS: ENOXAPARIN 40 MG/0.4 ML (LOVENOX) SYR SC SCH (08:47)
--- NOTE | 2022-04-08 10:11 | Tele-ICU Progress Note ---
Subjective Date Seen by a Provider: Apr 08, 2022 Time Seen by a Provider: 10:11 Subjective/Events-last exam (Tele-ICU Physician , Progress Note ) Service provided via interactive audio and video telecommunications E-CARE system to a patient admitted to ICU bed in [facility]. Patient is seen today due to persistent need of ICU care Available chart/ vitals / labs / Images reviewed Video assessment done using teleICU camera, rest of exam as per RN Discussed with RN Events overnight : Afebrile hemodynamically stable Respiratory - I/O = Drips: Pressors- no Consultants: sx Hospital course: (04/05) 36yF Admit severe sepsis, UTI, Cervicitis, Metabolic acidosis 04/06- CT with new free air - to OR : diagnostic laparoscopy to open marvin patch for duodenal perforation A/P Duodenal perf 04/06- s/p expl lap with diagnostic laparoscopy to open marvin patch -abx - as per sx - pain control with dilaudid [employer] UTI -abx SOLITARIO - dehydration. and NSAIDS - CT - no obstruction or hydro RESOLVED met acidosis - combination of sepsis, SOLITARIO and vo miting/diarrhea? STILL NOT RESOLVED, IMPROV ING - cont to hydrate Anemia - post op , no bleeding abd pain N/V for weeks - reported h/o colitis , now with perf viscus - ? etiology Lines : periph , (Central Line Necessity Reviewed) Herrera: 04/06 OG: Nutrition: npo Analgesia: Anxiety/ delirium VTE Prophylaxis: jame Stress Ulcer Prophylaxis: na Plans in collaboration with bedside consultants and IM MDs. Discussed with RN to reach out if any questions or concerns A total of 20 minutes of critical care time was devoted to this patient today, required to treat and/or prevent further deterioration of critical care condit ion ( as above ) . Sepsis Event Evaluation Height, Weight, BMI Height: 4'9.00" Weight: 170lbs. 8.0oz. [id number]; 35.34 BMI Method:Stated Focused Exam Lactate Level 04/06/22 06:32: Lactic Acid Level 1.63 Time of Focused Exam: 01:00 Exam Exam Patient acknowledged, consented, and participated in this virtual visit which was conducted using real time audio/video Vital Signs Date Time Temp Pulse Resp B/P (MAP) Pulse Ox O2 Delivery O2 Flow Rate FiO2 04/08/22 08:00 109 15 111/75 (87) 100 Room Air 04/08/22 07:59 36.7 04/08/22 07:40 100 Room Air 04/08/22 07:30 112 04/08/22 07:30 20 04/08/22 07:00 113 17 114/62 (79) 100 Room Air 04/08/22 06:48 36.2 19 04/08/22 06:00 114 19 120/67 (84) 100 Room Air 04/08/22 05:00 104 14 105/61 (76) 98 Room Air 04/08/22 04:00 107 13 121/74 (90) 98 Room Air 04/08/22 03:49 36.5 93 Room Air 04/08/22 03:41 95 Room Air 04/08/22 03:00 108 13 110/63 (79) 99 Room Air 04/08/22 02:14 99 Room Air 04/08/22 02:00 105 14 112/73 (86) 98 Room Air 04/08/22 01:00 101 04/08/22 01:00 102 12 117/63 (81) 97 Room Air 04/08/22 00:00 107 14 119/72 (88) 96 Room Air 04/08/22 00:00 36.2 95 Room Air 04/07/22 23:59 93 Room Air 04/07/22 23:00 110 15 112/56 (74) 99 Room Air 04/07/22 22:57 98 Room Air 04/07/22 22:00 103 14 110/64 (79) 93 Room Air 04/07/22 21:00 110 13 102/53 (69) 92 Room Air 04/07/22 20:14 36.7 04/07/22 20:02 36.7 04/07/22 20:01 20 04/07/22 20:00 114 15 123/64 (83) 99 Room Air 04/07/22 19:46 96 Room Air 04/07/22 19:00 112 21 115/74 (88) 100 Room Air 04/07/22 19:00 110 04/07/22 18:00 111 13 109/68 (82) 99 Room Air 04/07/22 17:50 20 04/07/22 17:00 120 20 119/63 (81) 95 Room Air 04/07/22 16:37 36.5 04/07/22 16:00 95 Room Air 0.00 04/07/22 16:00 112 13 106/61 (76) 95 Room Air 04/07/22 15:00 123 18 106/66 (79) 100 Room Air 04/07/22 14:43 100 Room Air 0.00 04/07/22 14:00 111 14 112/62 (79) 100 Room Air 04/07/22 13:55 107 04/07/22 13:00 122 29 90 Room Air 04/07/22 12:00 121 31 114/80 (91) 91 Room Air 04/07/22 12:00 94 Room Air 0.00 04/07/22 11:00 125 14 109/76 (87) 94 Room Air I & O 04/08/22 06:59 Intake Total 2450 ml Output Total 2270 ml Balance 180 ml Height & Weight Height: 4'9.00" Weight: 170lbs. 8.0oz. 77.862520ox; 35.34 BMI Method:Stated General Appearance: No Apparent Distress HEENT: PERRL/EOMI, Normal ENT Inspection Neck: Normal Inspection, Non Tender Respiratory: Chest Non Tender, Lungs Clear, Normal Breath Sounds, No Accessory Muscle Use, Other (coarse breath sounds bilaterally) Cardiovascular: Regular Rate, Rhythm, No Edema, No Murmur, Normal Peripheral Pulses, Tachycardia (with regular rate) Capillary Refill: Less Than 3 Seconds Peripheral Pulses: 3+ Radial Pulses (R), 3+ Radial Pulses (L) Gastrointestinal: normal bowel sounds, soft, abnormal bowel sounds; No guarding; tenderness (Diffuse ), other (melissa serosang output) Extremity: Non Tender, No Calf Tenderness Neurologic/Psychiatric: Alert, Oriented x3 Skin: Normal Color, Warm/Dry Lymphatic: No Adenopathy Results Lab Laboratory Tests 04/07/22 03:36 04/08/22 06:16 Assessment/Plan Assessment/Plan 1 RALPH SENA MD Apr 08, 2022 10:11
[2022-04-08] MEDS ORDERED: POTASSIUM PHOSPHATE INJ 30 MM in NS (IVPB) 250 ML IV ONE (11:00)
[2022-04-08 11:06] VITALS: BP 112/76
--- NOTE | 2022-04-08 13:42 | Progress Note ---
OXANA BURNETT 04/08/22 1342: Subjective Date Seen by a Provider: Apr 08, 2022 Time Seen by a Provider: 10:30 Subjective/Events-last exam Ms. Reyes is a 36 y/o female with a PMHx of HTN and colitis who presented to the [facility] ED on 04/04 with nausea, vomiting, abdominal pain, and an episode of pre- syncope. Patient has been admitted to the Hospitalist service for management of severe sepsis, UTI, and duodenal perforation. On 04/06 the patient was taken to the OR for duodenal repair. Today, 04/08, is post-op day 2. NG tube is still in place. Herrera catheter was removed this morning. Patient reports that she is passing flatus, denies BM. Patient states her pain continues to improve and rates as a 3-4/10. Patient is ambulating well. Transitioning to Med-Surg floor today. Review of Systems General: No Chills, No Night Sweats, No Fatigue, No Malaise HEENT: No Head Aches, No Visual Changes Pulmonary: No Dyspnea, No Cough Cardiovascular: No: Chest Pain Gastrointestinal: Abdominal Pain (mild abdominal pain); No: Nausea, Vomiting, Diarrhea Neurological: No: Weakness, Numbness Focused Exam Lactate Level 04/06/22 06:32: Lactic Acid Level 1.63 Time of Focused Exam: 01:00 Objective Exam Last Set of Vital Signs Vital Signs Date Time Temp Pulse Resp B/P (MAP) Pulse Ox O2 Delivery O2 Flow Rate FiO2 04/08/22 11:06 36.7 109 100 04/08/22 11:00 30 126/70 (88) Room Air 04/07/22 16:00 0.00 04/05/22 03:05 21 Capillary Refill : Less Than 3 SecondsLess Than 3 Seconds I&O Intake and Output 04/08/22 00:00 Intake Total 2500 ml Output Total 2210 ml Balance 290 ml Intake Oral 0 ml IV Total 2500 ml Output Urine Total 1800 ml Drainage Total 410 ml General: Alert, Oriented X3, No Acute Distress HEENT: Atraumatic Lungs: Clear to Auscultation, Normal Air Movement Heart: Regular Rate Abdomen: Normal Bowel Sounds, Soft, Other (mild tenderness to palpation) Extremities: Other (mild edema of bilateral hands and LE) Skin: No Rashes Neuro: Normal Gait, Normal Speech Psych/Mental Status: Mental Status NL, Mood NL Results Lab Laboratory Tests 04/08/22 06:16: White Blood Count 18.4H, Red Blood Count 2.02L, Hemoglobin 7.9L, Hematocrit 24L, Mean Corpuscular Volume 121H, Mean Corpuscular Hemoglobin 39H, Mean Corpuscular Hemoglobin Concent 32, Red Cell Distribution Width 14.0, Platelet Count 446H, Mean Platelet Volume 11.3, Immature Granulocyte % (Auto) 1, Neutrophils (%) (Auto) 87H, Lymphocytes (%) (Auto) 9L, Monocytes (%) (Auto) 4, Eosinophils (%) (Auto) 0, Basophils (%) (Auto) 0, Neutrophils # (Auto) 16.0H, Lymphocytes # (Auto) 1.6, Monocytes # (Auto) 0.6, Eosinophils # (Auto) 0.0, Basophils # (Auto) 0.0, Immature Granulocyte # (Auto) 0.1, Sodium Level 138, Potassium Level 3.7, Chloride Level 116H, Carbon Dioxide Level 12L, Anion Gap 10, Blood Urea Nitrogen 8, Creatinine 0.58L, Estimat Glomerular Filtration Rate 119, BUN/Creatinine Ratio 14, Glucose Level 87, Calcium Level 7.8L, Corrected Calcium 9.1, Phosphorus Level 1.6L, Magnesium Level 1.8, Total Bilirubin 0.5, Aspartate Amino Transf (AST/SGOT) 78H, Alanine Aminotransferase (ALT/SGPT) 24, Alkaline Phosphatase 230H, Total Protein 5.1L, Albumin 2.4L Microbiology 04/06/22 MRSA Screen - Final, Complete MRSA not isolated 04/05/22 Wet Prep - Final, Complete 04/04/22 Blood Culture - Preliminary, Resulted No growth 04/04/22 Urine Culture - Final, Complete Escherichia coli See Comments Assessment/Plan Assessment/Plan Assess & Plan/Chief Complaint Sepsis, UTI, duodenal perforation Diagnosis/Problems Diagnosis/Problems (1) Severe sepsis Status: Acute Assessment & Plan: Severe sepsis qualifiers: leukocytosis of 24.9, tachycardia, lactic acidosis 2.03 -> 1.92, source of infection likely UTI -Sepsis is likely secondary to UTI -Rocephin 1 gm -AM CBC, BMP (2) UTI (urinary tract infection) Status: Acute Assessment & Plan: Severe sepsis qualifiers: leukocytosis of 24.9, tachycardia, lactic acidosis 2.03 -> 1.92, source of infection UTI -Sepsis is likely secondary to UTI -Rocephin 1gm -Monitor urine output -Continue IVF with sodium chloride, 1000mls @ 150mls/hr. Monitor for signs of fluid retention, eg peripheral edema -AM CBC, BMP Qualifiers: Qualified Codes: N39.0 - Urinary tract infection, site not specified; R31.9 - Hematuria, unspecified (3) SOLITARIO (acute kidney injury) Status: Resolved Assessment & Plan: Cr 1.15, BUN 23 on 04/05 -> resolved on 04/06. Cr 0.78, BUN 7 -Continue to monitor with AM BMP -Monitor urine output -Continue IVF with sodium chloride 1000ml @ 150mls/hr Resolution Date/Time: 04/06/22 @ 13:49 (4) Hypertension Status: Acute Assessment & Plan: -Continue to monitor BP -Medication reconciliation and restart home medications as long as BP is stable (5) High anion gap metabolic acidosis Status: Resolved Assessment & Plan: Anion gap of 23 on 04/05 -> 15 on 04/06 -> 13 on 04/07 resolved -Likely secondary to lactic acidosis, possibly uremia -Patient denies recent alcohol consumption or consumption of any substances -Continue to monitor with AM BMP -Continue IVF Resolution Date/Time: 04/07/22 @ 19:20 (6) Duodenal perforation Status: Acute Assessment & Plan: Appreciate plan per Surgery -Operative management on 04/06 -Flagyl 500mg -Resume lovenox on 04/07 -Transition to PO pain management -NGT in place for decompression -SCDs in place -Transition to fourth floor (7) Hypophosphatemia Status: Acute Assessment & Plan: Continue to replace with potassium phosphate Monitor with AM labs ADDIE RESENDIZ MD 04/08/22 2000: Supervisory-Addendum Brief Verification & Attestation Participated in pt care: history, MDM, physical Personally performed: exam, history, MDM, supervision of care Care discussed with: Medical Student Procedures: n/a Verification and Attestation of Medical Student E/M Service A medical student performed and documented this service in my presence. I reviewed and verified all information documented by the medical student and made modifications to such information, when appropriate. I personally performed the physical exam and medical decision making. Addie Resendiz, Apr 08, 2022,20:00 OXANA BURNETT Apr 08, 2022 13:42 ADDIE RESENDIZ MD Apr 08, 2022 20:00
[2022-04-08 15:27] VITALS: BP 122/77
[2022-04-08] MEDS: cefTRIAXone 1 GM/50 ML (PRE-MIX) IV SCH (15:53)
[2022-04-08 16:30] VITALS: BP 118/68
[2022-04-08 19:22] VITALS: BP 117/70
[2022-04-08 23:22] VITALS: BP 120/68
[2022-04-09] MEDS: NS IV 1000 ML 1,000 ML IV SCH ×4 (00:55→21:15)
[2022-04-09 03:22] VITALS: BP 121/84
[2022-04-09] MEDS: metroNIDAZOLE 500MG/100ML IVPB 100 ML IV SCH ×3 (05:18→21:15)
[2022-04-09] MEDS: POTASSIUM CL 10MEQ/50ML IVPB 50 ML IV SCH (06:35)
[2022-04-09] MEDS: KCL 20 MEQ TAB (K-DUR) PO SCH (06:35)
[2022-04-09] MEDS: MAGNESIUM 1 GM/100 ML IVPB 100 ML IV SCH (06:35)
--- NOTE | 2022-04-09 07:45 | Progress Note - Surgery ---
ANDIEERICK 04/09/22 0744: Subjective Date Seen by a Provider: Apr 09, 2022 Time Seen by a Provider: 06:00 Subjective/Events-last exam Pt was awake laying in bed today. Pt agrees to a PICC line today. Pt states that she has been able to ambulate to the bathroom with aid of walker and nurse. Pt states she hasn't had a bowel movement yet, but has been passing gas. Pain is rated a 5/10 in RUQ, LUQ, and LLQ, and reports additional pain on the right flank. MELISSA output has been 20mL in the past 24 hrs w/ serosanguanous consistentcy; NGT output 850mL w/in 24 hours. Pt states she is slowly regaining her strength. Review of Systems General: No Chills HEENT: No Head Aches Pulmonary: No Dyspnea, No Cough Cardiovascular: No: Chest Pain, Palpitations Gastrointestinal: Abdominal Pain; No: Nausea, Vomiting, Diarrhea Focused Exam Time of Focused Exam: 01:00 Objective Exam Vital Signs Date Time Temp Pulse Resp B/P (MAP) Pulse Ox O2 Delivery O2 Flow Rate FiO2 04/09/22 06:35 20 04/09/22 03:22 36.3 104 18 121/84 (96) 97 Room Air 04/09/22 01:00 102 04/08/22 23:22 36.7 105 20 120/68 (85) 98 Room Air 04/08/22 20:14 Room Air 04/08/22 19:31 Room Air 04/08/22 19:22 36.9 107 20 117/70 (86) 96 Room Air 04/08/22 19:00 110 04/08/22 18:00 20 04/08/22 16:30 36.6 103 20 118/68 (85) 95 04/08/22 16:26 98 Room Air 04/08/22 15:27 36.6 114 20 122/77 (92) 95 Room Air 04/08/22 13:38 125 04/08/22 11:06 36.7 109 100 04/08/22 11:00 133 30 126/70 (88) 100 Room Air 04/08/22 10:51 100 Room Air 04/08/22 10:00 109 13 112/76 (88) 95 Room Air 04/08/22 09:00 117 18 115/87 (96) 100 Room Air 04/08/22 08:00 109 15 111/75 (87) 100 Room Air 04/08/22 07:59 36.7 04/08/22 07:40 100 Room Air I & O 04/09/22 07:00 Intake Total 1100 ml Output Total 2820 ml Balance -1720 ml Capillary Refill : Less Than 3 SecondsLess Than 3 Seconds General Appearance: No Apparent Distress, Anxious HEENT: PERRL/EOMI, Normal ENT Inspection, Other (NG tube) Neck: Normal Inspection, Non Tender Respiratory: Chest Non Tender, Normal Breath Sounds, No Accessory Muscle Use Cardiovascular: Regular Rate, Rhythm, No Edema, No JVD, Normal Peripheral Pulses, Tachycardia (with regular rate) Peripheral Pulses: 2+ Radial Pulses (R), 2+ Radial Pulses (L) Gastrointestinal: normal bowel sounds, soft, tenderness (RUQ, LLQ, LUQ, R. Flank; Pain improving; incisional, incisons c/di no signs of infection. ), other (melissa serosang output scant w/o bile tinge ) Extremity: Non Tender, No Calf Tenderness Neurologic/Psychiatric: Alert, Oriented x3 Skin: Normal Color, Warm/Dry Lymphatic: No Adenopathy Results Lab Microbiology 04/06/22 MRSA Screen - Final, Complete MRSA not isolated 04/05/22 Wet Prep - Final, Complete 04/04/22 Blood Culture - Preliminary, Resulted No growth 04/04/22 Urine Culture - Final, Complete Escherichia coli See Comments Assessment/Plan Assessment/Plan Assessment/Plan S/P Diagnostic Laparoscopy due to Duodenal perforation abdominal pain diffuse- improving now more incisional Sepsis with pneumoperitoneum, suspect hollow viscus perforation-duodenal perf ascities n/v UTI metabolic acidosis leukocytosis Elevated AlkPhos Pain Improved Continue Pain Control Continue IVF Continue Flagyl/Rocephin/Diflucan Continue NPO Continue NGT MELISSA drain - Serosang w/o bile tinge; minimal output STRICT NPO Previously refused picc line; motor lodge clerk nurse discussed more information about picc line, today pt agrees will get UGI study to evaluate for leak after POD 5 likely Tuesday. DONNA METZ DO 04/09/224: Subjective Subjective/Events-last exam Patient wanting picc line now. She's afraid her Iv's are going to bad, they hurt and she states she has bad veins. Pain controlled currently with [employer]. MELISSA drain now serous, no bile appearing drainage. NPO. Refused labs this morning. Denies n/v fever sweats chills shortness of breath or chest pain. Objective Exam General Appearance: Anxious HEENT: PERRL/EOMI, Normal ENT Inspection Neck: Normal Inspection, Non Tender Respiratory: Chest Non Tender, Normal Breath Sounds, No Accessory Muscle Use Cardiovascular: Regular Rate, Rhythm, No JVD Gastrointestinal: soft, tenderness (incisional, incisons c/di no signs of infection. ), other (melissa serous output scant w/o bile appearance) Extremity: Non Tender, No Calf Tenderness Neurologic/Psychiatric: Alert, Oriented x3 Skin: Normal Color, Warm/Dry Lymphatic: No Adenopathy Assessment/Plan Assessment/Plan Assessment/Plan S/P Diagnostic Laparoscopy to open modified marvin patch due to Duodenal perforation abdominal pain diffuse- improving now more incisional Sepsis with pneumoperitoneum, suspect hollow viscus perforation-duodenal perf ascities n/v UTI metabolic acidosis leukocytosis Elevated AlkPhos Pain Improved Continue Pain Control Continue IVF Continue Flagyl/Rocephin/Diflucan Continue NPO Continue NGT MELISSA drain - Serous w/o bile tinge; minimal output STRICT NPO Previously refused picc line; motor lodge clerk nurse discussed more information about picc line, today pt agrees will get UGI study to evaluate for leak after POD 5 likely Tuesday. Supervisory-Addendum Brief Verification & Attestation Participated in pt care: history, MDM, physical Personally performed: exam, history, MDM, supervision of care Care discussed with: Medical Student Procedures: n/a Results interpretation: Verified all documentation Verification and Attestation of Medical Student E/M Service A medical student performed and documented this service in my presence. I review ed and verified all information documented by the medical student and made modifications to such information, when appropriate. I personally performed the physical exam and medical decision making. Donna Metz, Apr 09, 2022,22:38 ERICK CHAVES Apr 09, 2022 07:44 DONNA METZ DO Apr 09, 2022 22:39
[2022-04-09 08:24] VITALS: BP 132/85
[2022-04-09] MEDS: ENOXAPARIN 40 MG/0.4 ML (LOVENOX) SYR SC SCH (09:13)
[2022-04-09] MEDS: FLUCONAZOLE 200 MG/100 ML 100 ML IV SCH (09:13)
[2022-04-09] MEDS: PANTOPRAZOLE 40 MG (PROTONIX) VIAL IV SCH ×2 (09:14→21:15)
[2022-04-09 12:00] VITALS: BP 132/86
[2022-04-09] MEDS ORDERED: LIDOCAINE 1% INJ 20 ML VIAL ONE (12:13)
--- NOTE | 2022-04-09 12:32 | Progress Note ---
OXANA BURNETT 04/09/22 1232: Subjective Date Seen by a Provider: Apr 09, 2022 Time Seen by a Provider: 10:00 Subjective/Events-last exam Ms. Reyes is a 36 y/o female with a PMHx of HTN and colitis who presented to the [facility] ED on 04/04 with nausea, vomiting, abdominal pain, and an episode of pre- syncope. Patient has been admitted to the Hospitalist service for management of severe sepsis, UTI, and duodenal perforation. On 04/06 the patient was taken to the OR for duodenal repair. Today, 04/09, is post-op day 3. NG tube is still in place. Patient reports 10/14 abdominal pain without pain medication. Patient is still using JIGSAWYER for pain management. PICC line is being placed today for lab access. Patient will continue to be followed by the Hospitalist service with pain management and post-operative management per Surgery. Review of Systems HEENT: No Head Aches Pulmonary: No Dyspnea Cardiovascular: No: Chest Pain Gastrointestinal: Abdominal Pain (diffuse abdominal pain - 10/14); No: Nausea, Vomiting, Diarrhea Genitourinary: No Dysuria, No Retention Neurological: No: Weakness, Numbness, Change in speech Focused Exam Time of Focused Exam: 01:00 Objective Exam Last Set of Vital Signs Vital Signs Date Time Temp Pulse Resp B/P (MAP) Pulse Ox O2 Delivery O2 Flow Rate FiO2 04/09/22 10:12 18 04/09/22 08:24 36.6 109 132/85 (101) 100 Room Air 04/07/22 16:00 0.00 04/05/22 03:05 21 Capillary Refill : Less Than 3 SecondsLess Than 3 Seconds I&O Intake and Output 04/09/22 00:00 Intake Total 2300 ml Output Total 1870 ml Balance 430 ml Intake Oral 0 ml IV Total 2300 ml Output Urine Total 1200 ml Gastric Drainage Total 650 ml Drainage Total 20 ml # Voids 1 General: Alert, No Acute Distress HEENT: Atraumatic Lungs: Clear to Auscultation, Normal Air Movement Heart: Normal S1, Normal S2, Other (tachycardia) Abdomen: Normal Bowel Sounds, Soft, Other (no distention, tenderness with palpation) Extremities: Other (trace LE edema bilaterally) Skin: No Rashes Neuro: Normal Speech Psych/Mental Status: Mental Status NL Results Lab Microbiology 04/06/22 MRSA Screen - Final, Complete MRSA not isolated 04/05/22 Wet Prep - Final, Complete 04/04/22 Blood Culture - Preliminary, Resulted No growth 04/04/22 Urine Culture - Final, Complete Escherichia coli See Comments Assessment/Plan Assessment/Plan Assess & Plan/Chief Complaint Sepsis, UTI, duodenal perforation Diagnosis/Problems Diagnosis/Problems (1) Severe sepsis Status: Acute Assessment & Plan: Severe sepsis qualifiers: leukocytosis of 24.9, tachycardia, lactic acidosis 2.03 -> 1.92, source of infection likely UTI -Sepsis is likely secondary to UTI -Rocephin 1 gm -AM CBC, BMP (2) UTI (urinary tract infection) Status: Acute Assessment & Plan: Severe sepsis qualifiers: leukocytosis of 24.9, tachycardia, lactic acidosis 2.03 -> 1.92, source of infection UTI -Sepsis is likely secondary to UTI -Rocephin 1gm -Monitor urine output -Continue IVF with sodium chloride, 1000mls @ 150mls/hr. Monitor for signs of fluid retention, eg peripheral edema -AM CBC, BMP Qualifiers: Qualified Codes: N39.0 - Urinary tract infection, site not specified; R31.9 - Hematuria, unspecified (3) SOLITARIO (acute kidney injury) Status: Resolved Assessment & Plan: Cr 1.15, BUN 23 on 04/05 -> resolved on 04/06. Cr 0.78, BUN 7 -Continue to monitor with AM BMP -Monitor urine output -Continue IVF with sodium chloride 1000ml @ 150mls/hr Resolution Date/Time: 04/06/22 @ 13:49 (4) Hypertension Status: Acute Assessment & Plan: -Continue to monitor BP -Medication reconciliation and restart home medications as long as BP is stable (5) High anion gap metabolic acidosis Status: Resolved Assessment & Plan: Anion gap of 23 on 04/05 -> 15 on 04/06 -> 13 on 04/07 resolved -Likely secondary to lactic acidosis, possibly uremia -Patient denies recent alcohol consumption or consumption of any substances -Continue to monitor with AM BMP -Continue IVF Resolution Date/Time: 04/07/22 @ 19:20 (6) Duodenal perforation Status: Acute Assessment & Plan: Appreciate plan per Surgery -Operative management on 04/06 -Flagyl 500mg -Resume lovenox on 04/07 -Transition to PO pain management -NGT in place for decompression -SCDs in place -Transition to fourth floor (7) Hypophosphatemia Status: Acute Assessment & Plan: Continue to replace with potassium phosphate Monitor with AM labs ADDIE GOVEA MD 04/09/22 1528: Supervisory-Addendum Brief Verification & Attestation Participated in pt care: history, MDM, physical Personally performed: exam, history, MDM, supervision of care Care discussed with: Medical Student Procedures: n/a Verification and Attestation of Medical Student E/M Service A medical student performed and documented this service in my presence. I reviewed and verified all information documented by the medical student and made modifications to such information, when appropriate. I personally performed the physical exam and medical decision making. Addie Govea, Apr 09, 2022,15:28 OXANA BURNETT Apr 09, 2022 12:32 ADDIE GOVEA MD Apr 09, 2022 15:28
[2022-04-09] MEDS: cefTRIAXone 1 GM/50 ML (PRE-MIX) IV SCH (14:20)
[2022-04-09 15:22] VITALS: BP 136/76
[2022-04-09 20:35] VITALS: BP 132/71
[2022-04-09 23:44] VITALS: BP 146/85
[2022-04-10 03:42] VITALS: BP 142/82
[2022-04-10 04:13] LABS: BASOPHILS % (AUTO) 0 % (0-10); EOSINOPHILS # (AUTO) 0.2 10^3/uL (0.0-0.3); EOSINOPHILS % (AUTO) 2 % (0-10); HEMATOCRIT 22 % (35-52); HEMOGLOBIN 7.2 g/dL (11.5-16.0); LYMPHOCYTES # (AUTO) 1.7 10^3/uL (1.0-4.0); LYMPHOCYTES % (AUTO) 13 % (12-44); MEAN CORPUSCULAR HEMOGLOBIN 38 pg (25-34); MEAN CORPUSCULAR HGB CONC 32 g/dL (32-36); MEAN CORPUSCULAR VOLUME 118 fL (80-99); MEAN PLATELET VOLUME 10.2 fL (9.0-12.2); MONOCYTES # (AUTO) 1.2 10^3/uL (0.0-1.0); MONOCYTES % (AUTO) 9 % (0-12); NEUTROPHILS # (AUTO) 9.7 10^3/uL (1.8-7.8); NEUTROPHILS % (AUTO) 76 % (42-75); PLATELET COUNT 485 10^3/uL (130-400); WHITE BLOOD COUNT 12.9 10^3/uL (4.3-11.0)
[2022-04-10 04:34] LABS: ALBUMIN 2.2 GM/DL (3.2-4.5); BILIRUBIN,TOTAL 0.3 MG/DL (0.1-1.0); CALCIUM 7.7 MG/DL (8.5-10.1); CREATININE SERUM 0.49 MG/DL (0.60-1.30); MAGNESIUM 1.3 MG/DL (1.6-2.4); PHOSPHORUS 2.4 MG/DL (2.3-4.7); POTASSIUM 3.1 MMOL/L (3.6-5.0)
[2022-04-10] MEDS: POTASSIUM CL 10MEQ/50ML IVPB 50 ML IV SCH ×5 (04:40→08:04)
[2022-04-10] MEDS: KCL 20 MEQ TAB (K-DUR) PO SCH (04:41)
[2022-04-10] MEDS: MAGNESIUM 1 GM/100 ML IVPB 100 ML IV SCH ×5 (04:41→08:05)
[2022-04-10] MEDS: NS IV 1000 ML 1,000 ML IV SCH ×3 (05:22→19:55)
[2022-04-10] MEDS: metroNIDAZOLE 500MG/100ML IVPB 100 ML IV SCH ×3 (05:44→21:02)
--- NOTE | 2022-04-10 06:32 | Progress Note - Hospitalist ---
Subjective HPI/CC On Admission Date Seen by Provider: Apr 10, 2022 Time Seen by Provider: 11:00 Subjective/Events-last exam Patient doing pretty well Pain is controlled Labs reviewed Iron and B12 checked Iron infusion and B12 initiated Review of Systems Gastrointestinal: Abdominal Pain Focused Exam Time of Focused Exam: 01:00 Objective Exam Vital Signs Vital Signs Date Time Temp Pulse Resp B/P (MAP) Pulse Ox O2 Delivery O2 Flow Rate FiO2 04/10/22 11:40 36.2 99 20 142/79 (100) 98 Room Air 04/10/22 09:00 0.50 04/05/22 03:05 21 Capillary Refill : Less Than 3 SecondsLess Than 3 Seconds General Appearance: No Apparent Distress, WD/WN, Chronically ill Respiratory: Lungs Clear, Normal Breath Sounds Cardiovascular: Regular Rate, Rhythm Neurologic/Psychiatric: Alert, Oriented x3, No Motor/Sensory Deficits, Normal Mood/Affect Results/Procedures Lab Laboratory Tests 04/10/22 04:06 Patient resulted labs reviewed. Imaging: Reviewed Imaging Films, Reviewed Imaging Report Assessment/Plan Assessment and Plan Assess & Plan/Chief Complaint Assessment: Severe sepsis Perforated duodenal ulcer Metabolic acidosis Anemia Plan: DC telemetry [facility] Fourth floor Monitor hemoglobin closely Critical Care Critically Ill Patient RENAPAM KAPADIA Apr 10, 2022 06:32
[2022-04-10] MEDS: PANTOPRAZOLE 40 MG (PROTONIX) VIAL IV SCH ×2 (08:05→19:55)
[2022-04-10 08:16] VITALS: BP 132/76
--- NOTE | 2022-04-10 08:40 | Progress Note - Surgery ---
ADRIAN VANN 04/10/22 0840: Subjective Date Seen by a Provider: Apr 10, 2022 Time Seen by a Provider: 08:35 Subjective/Events-last exam Patient is a 36 year old F, s/p diagnostic laparoscopy for duodenal perforation day 4. She states that she is feeling much better today and her stomach soreness has improved, 4/10 surgical site pain that is intermittent. She is passing gas but has not had a BM yet. States that her NG tube is causing her throat to be sore. She denies chills, lightheadedness, headaches, nausea or vomiting. She is up and ambulating to and from the bathroom. Review of Systems General: No Chills, No Fatigue HEENT: No Head Aches, No Visual Changes Pulmonary: No Dyspnea, No Cough Cardiovascular: No: Chest Pain, Palpitations, Lt Headedness Gastrointestinal: Abdominal Pain; No: Nausea, Vomiting Genitourinary: No Dysuria, No Frequency Neurological: No: Weakness, Numbness Focused Exam Time of Focused Exam: 01:00 Objective Exam Vital Signs Date Time Temp Pulse Resp B/P (MAP) Pulse Ox O2 Delivery O2 Flow Rate FiO2 04/10/22 08:16 36.5 92 20 132/76 (94) 97 Room Air 04/10/22 07:44 100 Room Air 0.00 04/10/22 07:21 16 04/10/22 07:00 104 04/10/22 03:42 36.5 97 18 142/82 (102) 100 Room Air 04/10/22 01:00 104 04/09/22 23:44 36.6 100 18 146/85 (105) 100 Room Air 04/09/22 21:28 Room Air 04/09/22 20:35 36.3 98 19 132/71 (91) 98 Room Air 04/09/22 19:00 100 04/09/22 15:22 36.6 103 17 136/76 (96) 96 Room Air 04/09/22 12:48 107 04/09/22 12:00 36.6 102 20 132/86 (101) 98 Room Air 04/09/22 10:12 18 I & O 04/10/22 07:00 Intake Total 0 ml Output Total 4585 ml Balance -4585 ml Capillary Refill : Less Than 3 SecondsLess Than 3 Seconds General Appearance: No Apparent Distress HEENT: PERRL/EOMI, Normal ENT Inspection Neck: Normal Inspection, Non Tender; No Carotid Bruit, No Lymphadenopathy (L), No Lymphadenopathy (R), No Thyromegaly Respiratory: Chest Non Tender, Normal Breath Sounds, No Accessory Muscle Use Cardiovascular: Regular Rate, Rhythm, No Gallop, No Murmur, Normal Peripheral Pulses Peripheral Pulses: 2+ Dorsalis Pedis (R), 2+ Left Dors-Pedis (L), 2+ Radial Pulses (R), 2+ Radial Pulses (L) Gastrointestinal: soft, no organomegaly; No guarding, No rebound; tenderness (incisional, incisons c/di no signs of infection. ), other (melissa serous output scant w/o bile appearance) Extremity: Non Tender, No Calf Tenderness; No Calf Tenderness; Pedal Edema Neurologic/Psychiatric: Alert, Oriented x3 Skin: Normal Color, Warm/Dry Lymphatic: No Adenopathy; No Axilla Node Tender (L), No Axilla Node Tender (R) Results Lab Laboratory Tests 04/10/22 04:06: White Blood Count 12.9H, Red Blood Count 1.90L, Hemoglobin 7.2L, Hematocrit 22L, Mean Corpuscular Volume 118H, Mean Corpuscular Hemoglobin 38H, Mean Corpuscular Hemoglobin Concent 32, Red Cell Distribution Width 14.0, Platelet Count 485H, Mean Platelet Volume 10.2, Immature Granulocyte % (Auto) 0, Neutrophils (%) (Auto) 76H, Lymphocytes (%) (Auto) 13, Monocytes (%) (Auto) 9, Eosinophils (%) (Auto) 2, Basophils (%) (Auto) 0, Neutrophils # (Auto) 9.7H, Lymphocytes # (Auto) 1.7, Monocytes # (Auto) 1.2H, Eosinophils # (Auto) 0.2, Basophils # (Auto) 0.0, Immature Granulocyte # (Auto) 0.1, Sodium Level 144, Potassium Level 3.1L, Chloride Level 116H, Carbon Dioxide Level 14L, Anion Gap 14, Blood Urea Nitrogen 2L, Creatinine 0.49L, Estimat Glomerular Filtration Rate 124, BUN/Creatinine Ratio 4, Glucose Level 80, Calcium Level 7.7L, Corrected Calcium 9.1, Phosphorus Level 2.4, Magnesium Level 1.3L, Total Bilirubin 0.3, Aspartate Amino Transf (AST/SGOT) 26, Alanine Aminotransferase (ALT/SGPT) 24, Alkaline Phosphatase 199H, Total Protein 5.0L, Albumin 2.2L Microbiology 04/06/22 MRSA Screen - Final, Complete MRSA not isolated 04/05/22 Wet Prep - Final, Complete 04/04/22 Blood Culture - Preliminary, Resulted No growth 04/04/22 Urine Culture - Final, Complete Escherichia coli See Comments Assessment/Plan Assessment/Plan Assessment/Plan S/P Diagnostic Laparoscopy to open modified marvin patch due to Duodenal perfo ration abdominal pain diffuse- improving now more incisional as well as localized to around 2 inches above her drain site Sepsis with pneumoperitoneum, suspect hollow viscus perforation-duodenal perf ascities n/v UTI metabolic acidosis leukocytosis Elevated AlkPhos Pain Improved Continue Pain Control Continue IVF Continue Flagyl/Rocephin/Diflucan Continue NPO Continue NGT MELISSA drain - Sersanguinous w/o bile tinge; minimal output STRICT NPO Picc line placed yesterday will get UGI study to evaluate for leak after POD 5 likely Tuesday. JEMIMA CASTRO DO 04/10/22 1224: Subjective Time Seen by a Provider: 10:26 Subjective/Events-last exam Pt seen and examined, she is sitting up in bed and appears comfortable. States pain is mostly controlled. She has flatus but no BM yest. Her main complaint is that she is hungry and the NGT bothers her. Review of Systems General: No Chills; Fatigue HEENT: No Head Aches, No Visual Changes Pulmonary: No Dyspnea, No Cough Cardiovascular: No: Chest Pain, Palpitations Gastrointestinal: Abdominal Pain; No: Nausea, Vomiting Genitourinary: No Dysuria, No Frequency Objective Exam General Appearance: No Apparent Distress, Anxious HEENT: PERRL/EOMI, Other (NGT in place) Respiratory: Chest Non Tender, Lungs Clear, Normal Breath Sounds, No Accessory Muscle Use Cardiovascular: Regular Rate, Rhythm, No Murmur Gastrointestinal: soft, no organomegaly; No guarding, No rebound; tenderness (incisional, incisons c/di no signs of infection. ), other (melissa serous output scant w/o bile appearance, incision is c/d/i) Extremity: Non Tender, No Calf Tenderness, Pedal Edema Neurologic/Psychiatric: Alert, Oriented x3 Skin: Pallor Assessment/Plan Assessment/Plan Assessment/Plan Anemia - doubt due to continued blood loss (nothing in MELISSA), most likely dilutional and from blood draws S/P Open modified marvin patch due to Duodenal perforation UTI Continue Pain Control, IV fluids, NGT and strict NPO. Continue Flagyl/Rocephin/Diflucan Monitor MELISSA drain - Sersanguinous w/o bile tinge; minimal output Picc line placed yesterday Plan for UGI study to evaluate for leak after POD 5 likely Tuesday. Supervisory-Addendum Brief Verification & Attestation Participated in pt care: history, MDM, physical Personally performed: exam, history, MDM, supervision of care Care discussed with: Medical Student Procedures: n/a Verification and Attestation of Medical Student E/M Service A medical student performed and documented this service. I then reviewed and verified all information documented by the medical student and made modifications to such information, when appropriate. I personally performed a physical exam, medical decision making and then discussed any differences betwee n the notes and made revisions as necessary to create one note. Jemima Castro , 04/10/22 , 12:24 ADRIAN VANN Apr 10, 2022 08:40 JEMIMA CASTRO DO Apr 10, 2022 12:24
[2022-04-10] MEDS: ENOXAPARIN 40 MG/0.4 ML (LOVENOX) SYR SC SCH (09:12)
[2022-04-10 11:40] VITALS: BP 142/79
[2022-04-10] MEDS ORDERED: CYANOCOBALAMIN INJ 1000 MCG/ML IM ONE (11:45)
[2022-04-10] MEDS: IRON SUCROSE 200 MG/10 ML (VENOFER) VIAL IV SCH (12:26)
[2022-04-10] MEDS: FLUCONAZOLE 200 MG/100 ML 100 ML IV SCH (12:26)
[2022-04-10] MEDS: cefTRIAXone 1 GM/50 ML (PRE-MIX) IV SCH (14:32)
[2022-04-10 16:19] VITALS: BP 155/89
[2022-04-10 20:00] VITALS: BP 156/93
[2022-04-10] MEDS: RT-ALBUTEROL SULF 2.5 MG/3 ML PRE-MIX VIAL INH SCH (21:55)
[2022-04-10 23:46] VITALS: BP 116/67
[2022-04-11] VITALS (11 sets, daily range): BP systolic 119–166; BP diastolic 70–101
[2022-04-11] MEDS: NS IV 1000 ML 1,000 ML IV SCH ×2 (01:56→05:39)
[2022-04-11] MEDS: RT-ALBUTEROL SULF 2.5 MG/3 ML PRE-MIX VIAL INH SCH ×4 (03:24→21:09)
[2022-04-11] MEDS: metroNIDAZOLE 500MG/100ML IVPB 100 ML IV SCH ×2 (05:38→14:32)
[2022-04-11 06:04] LABS: BASOPHILS % (AUTO) 0 % (0-10); EOSINOPHILS # (AUTO) 0.1 10^3/uL (0.0-0.3); EOSINOPHILS % (AUTO) 1 % (0-10); HEMATOCRIT 21 % (35-52); LYMPHOCYTES # (AUTO) 1.1 10^3/uL (1.0-4.0); LYMPHOCYTES % (AUTO) 10 % (12-44); MEAN CORPUSCULAR HEMOGLOBIN 38 pg (25-34); MEAN CORPUSCULAR HGB CONC 33 g/dL (32-36); MEAN CORPUSCULAR VOLUME 116 fL (80-99); MEAN PLATELET VOLUME 10.5 fL (9.0-12.2); MONOCYTES # (AUTO) 1.3 10^3/uL (0.0-1.0); MONOCYTES % (AUTO) 12 % (0-12); NEUTROPHILS # (AUTO) 8.7 10^3/uL (1.8-7.8); NEUTROPHILS % (AUTO) 76 % (42-75); PLATELET COUNT 426 10^3/uL (130-400); WHITE BLOOD COUNT 11.3 10^3/uL (4.3-11.0)
[2022-04-11 06:09] LABS: HEMOGLOBIN 6.7 g/dL (11.5-16.0)
[2022-04-11 06:24] LABS: ALBUMIN 2.1 GM/DL (3.2-4.5)
[2022-04-11 06:25] LABS: CHLORIDE 115 MMOL/L (98-107); SODIUM 143 MMOL/L (135-145)
[2022-04-11 06:26] LABS: CALCIUM 7.2 MG/DL (8.5-10.1)
[2022-04-11 06:27] LABS: GLUCOSE 75 MG/DL (70-105); TOTAL PROTEIN 4.7 GM/DL (6.4-8.2)
[2022-04-11 06:28] LABS: CARBON DIOXIDE 14 MMOL/L (21-32)
[2022-04-11 06:29] LABS: BILIRUBIN,TOTAL 0.2 MG/DL (0.1-1.0)
[2022-04-11 06:30] LABS: ALKALINE PHOSPHATASE 141 U/L (40-136)
[2022-04-11 06:31] LABS: CREATININE SERUM 0.44 MG/DL (0.60-1.30); GFR ESTIMATED 128
[2022-04-11 06:32] LABS: BUN/CREATININE RATIO 5
[2022-04-11 06:33] LABS: MAGNESIUM 1.5 MG/DL (1.6-2.4)
[2022-04-11 06:34] LABS: ALANINE AMINOTRANSFERASE 20 U/L (0-55)
[2022-04-11] MEDS ORDERED: FUROSEMIDE 40 MG/4 ML INJ (LASIX) IVP ONE ×2 (07:15→14:25)
[2022-04-11] MEDS ORDERED: MAGNESIUM 1 GM/100 ML IVPB 100 ML IV ONE ×2 (07:15→12:45)
--- NOTE | 2022-04-11 07:36 | Progress Note - Hospitalist ---
Subjective HPI/CC On Admission Date Seen by Provider: Apr 11, 2022 Time Seen by Provider: 11:00 Subjective/Events-last exam Getting very frustrated Wants her barium swallow or whatever General Surgery planned She feels like she is getting the "run around" I explained I was in charge of transfusing blood she is receiving a day and electrolyte supplement I did update Dr. Castro Review of Systems General: Fatigue, Malaise Gastrointestinal: Abdominal Pain Focused Exam Time of Focused Exam: 01:00 Objective Exam Vital Signs Vital Signs Date Time Temp Pulse Resp B/P (MAP) Pulse Ox O2 Delivery O2 Flow Rate FiO2 04/11/22 11:39 36.7 106 137/79 04/11/22 11:19 18 100 Room Air 04/11/22 09:00 0.00 04/05/22 03:05 21 Capillary Refill : Less Than 3 SecondsLess Than 3 Seconds General Appearance: No Apparent Distress, WD/WN, Chronically ill Respiratory: Lungs Clear, Normal Breath Sounds Neurologic/Psychiatric: Alert, Oriented x3, No Motor/Sensory Deficits, Normal Mood/Affect Results/Procedures Lab Laboratory Tests 04/11/22 05:50 Patient resulted labs reviewed. Imaging: Reviewed Imaging Films, Reviewed Imaging Report Assessment/Plan Assessment and Plan Assess & Plan/Chief Complaint Assessment: Severe sepsis Perforated duodenal ulcer Metabolic acidosis Anemia Hypokalemia Hypomagnesemia Irritable mood Plan: DC telemetry [facility] Fourth floor Transfuse today Replace potassium Critical Care Critically Ill Patient Clinical Quality Measures DVT/VTE Risk/Contraindication: Contraindications-Pharm: Other *list below* Other: severe anemia PAM CHASE DO Apr 11, 2022 07:36
[2022-04-11] MEDS: POTASSIUM CL 10MEQ/50ML IVPB 50 ML IV SCH ×4 (08:10→10:15)
[2022-04-11] MEDS: PANTOPRAZOLE 40 MG (PROTONIX) VIAL IV SCH ×2 (08:11→20:35)
[2022-04-11] MEDS: FLUCONAZOLE 200 MG/100 ML 100 ML IV SCH (08:11)
--- NOTE | 2022-04-11 08:46 | Progress Note - Surgery ---
ADRIAN VANN 04/11/22 0846: Subjective Date Seen by a Provider: Apr 11, 2022 Time Seen by a Provider: 08:35 Subjective/Events-last exam Patient is a 36 yo F s/p duodenal perforation repair with modified Mian patch placement day 5. She states that she is feeling alright this morning. Her pain is around the same as it was yesterday, mostly relegated to around 2 inches above her MELISSA tube placement, around a 5/10 in severity. She has not yet had a BM but is passing flatus. She has been doing less walking as she was told by a nurse and her aid that she should not be getting up and walking around her room. She denies no nausea or vomiting, vision changes, chills, palpitations. She notes a headache that she believes is related to her NG tube placement as the pain is localized to the area behind her nares. Her NG tube has drained around 375 ml, and her MELISSA tube has drained around 20 ml of serosanguineous fluid. Review of Systems General: No Chills, No Night Sweats; Fatigue; No Malaise HEENT: Head Aches (Located posterior to the nose); No Visual Changes; Post Nasal Drip, Sore Throat Pulmonary: No Dyspnea, No Cough Cardiovascular: No: Chest Pain, Palpitations, Lt Headedness Gastrointestinal: Abdominal Pain (Localized to just above the MELISSA tube placement); No: Nausea, Vomiting Genitourinary: No Dysuria, No Frequency Neurological: Weakness (Generalized); No: Numbness Focused Exam Sepsis Stage: Sepsis (Patient is slightly tachycardic with a heart rate in the low 100's, known source of possible infection from duodenal perforation, white count is at 11.3 (12 is the cut-off in SIRS), patient is not tachypneic.) Time of Focused Exam: 01:00 Objective Exam Vital Signs Date Time Temp Pulse Resp B/P (MAP) Pulse Ox O2 Delivery O2 Flow Rate FiO2 04/11/22 07:51 36.1 101 18 166/70 (102) 99 Room Air 04/11/22 07:00 18 04/11/22 03:31 36.4 101 18 137/78 (97) 99 Room Air 0.00 0.00 04/11/22 03:24 98 Room Air 0.00 04/10/22 23:46 36.3 99 18 116/67 (83) 97 Room Air 0.00 0.00 04/10/22 21:55 97 Room Air 0.00 04/10/22 21:23 97 Nasal Cannula 0.50 04/10/22 20:00 36.4 94 18 156/93 (114) 99 Room Air 04/10/22 19:00 16 04/10/22 16:19 36.2 99 18 155/89 (111) 99 Room Air 04/10/22 11:40 36.2 99 20 142/79 (100) 98 Room Air 04/10/22 09:00 97 Nasal Cannula 0.50 I & O 04/11/22 07:00 Intake Total 900 ml Output Total 5555 ml Balance -4655 ml Capillary Refill : Less Than 3 SecondsLess Than 3 Seconds General Appearance: No Apparent Distress, WD/WN HEENT: PERRL/EOMI, Moist Mucous Membranes; No Scleral Icterus (L), No Scleral Icterus (R); Other (NGT in place) Neck: Non Tender, Supple; No Carotid Bruit, No Lymphadenopathy (L), No Lymphadenopathy (R), No Thyromegaly Respiratory: No Accessory Muscle Use, No Respiratory Distress, Wheezing (Left upper lobe wheeze) Cardiovascular: No Gallop, No Murmur, Normal Peripheral Pulses, Tachycardia (Slightly tachycardic in the low 100's) Peripheral Pulses: 2+ Dorsalis Pedis (R), 2+ Left Dors-Pedis (L), 2+ Radial Pulses (R), 2+ Radial Pulses (L) Gastrointestinal: soft, no organomegaly; No guarding, No rebound; tenderness (incisional, incisons c/di no signs of infection. ), other (melissa serous output scant w/o bile appearance, incision is c/d/i) Extremity: Non Tender, No Calf Tenderness; No Calf Tenderness; Pedal Edema Neurologic/Psychiatric: Alert, Oriented x3, No Motor/Sensory Deficits Skin: Normal Color, Warm/Dry, Pallor Lymphatic: No Adenopathy; No Axilla Node Tender (L), No Axilla Node Tender (R) Other comments Incision site does not appear inflammed or erythematous Results Lab Laboratory Tests 04/10/22 12:29: Iron Level 12L, Vitamin B12 Level 422 04/11/22 05:50: White Blood Count 11.3H, Red Blood Count 1.77L, Hemoglobin 6.7*L, Hematocrit 21L , Mean Corpuscular Volume 116H, Mean Corpuscular Hemoglobin 38H, Mean Corpuscular Hemoglobin Concent 33, Red Cell Distribution Width 13.8, Platelet Count 426H, Mean Platelet Volume 10.5, Immature Granulocyte % (Auto) 1, Neutrophils (%) (Auto) 76H, Lymphocytes (%) (Auto) 10L, Monocytes (%) (Auto) 12, Eosinophils (%) (Auto) 1, Basophils (%) (Auto) 0, Neutrophils # (Auto) 8.7H, Lymphocytes # (Auto) 1.1, Monocytes # (Auto) 1.3H, Eosinophils # (Auto) 0.1, Basophils # (Auto) 0.0, Immature Granulocyte # (Auto) 0.1, Sodium Level 143, Potassium Level 3.0L, Chloride Level 115H, Carbon Dioxide Level 14L, Anion Gap 1 4, Blood Urea Nitrogen < 2L, Creatinine 0.44L, Estimat Glomerular Filtration Rate 128, BUN/Creatinine Ratio 5, Glucose Level 75, Calcium Level 7.2L, Corrected Calcium 8.7, Magnesium Level 1.5L, Total Bilirubin 0.2, Aspartate Amino Transf (AST/SGOT) 22, Alanine Aminotransferase (ALT/SGPT) 20, Alkaline Phosphatase 141H, Total Protein 4.7L, Albumin 2.1L 04/11/22 07:39: Magnesium Level 1.4L Microbiology 04/06/22 MRSA Screen - Final, Complete MRSA not isolated 04/05/22 Wet Prep - Final, Complete 04/04/22 Blood Culture - Final, Complete No growth 04/04/22 Urine Culture - Final, Complete Escherichia coli See Comments Assessment/Plan Assessment/Plan Assessment/Plan Anemia - doubt due to continued blood loss (nothing in MELISSA), most likely dilutional and from blood draws S/P Open modified mian patch due to Duodenal perforation UTI Continue Pain Control, IV fluids, NGT and strict NPO. Continue Flagyl/Rocephin/Diflucan Monitor NGT output; 375 ml output Monitor MELISSA drain - Sersanguinous w/o bile tinge; 20 ml output Picc line placed two days ago Patient may need transfusion of LRRBC due to HGB of 6.7. Plan for UGI study to evaluate for leak after POD 5 likely Tuesday. Clinical Quality Measures DVT/VTE Risk/Contraindication: Contraindications-Pharm: Other *list below* Other: severe anemia JEMIMA ARCHER DO 04/11/22 1445: Subjective Time Seen by a Provider: 12:01 Subjective/Events-last exam Pt seen and examined, she complains of pain in her stomach around MELISSA and then the other area she points to her head and NGT. She is very upset today and asking about getting "the study" to see if she can eat and get NGT out. I told her that what I knew was it was supposed to happen on Tuesday. She is currently getting blood transfusion, her Hg dropped to 6.7 today. Review of Systems General: No Chills, No Night Sweats; Fatigue HEENT: Head Aches (Located posterior to the nose); No Visual Changes; Post Nasal Drip, Sore Throat Pulmonary: No Dyspnea, No Cough Cardiovascular: Lt Headedness; No: Chest Pain, Palpitations Gastrointestinal: Abdominal Pain (Localized to just above the MELISSA tube placement); No: Nausea, Vomiting Genitourinary: No Dysuria, No Frequency Neurological: Weakness (Generalized) Objective Exam General Appearance: No Apparent Distress, Chronically ill HEENT: PERRL/EOMI, Moist Mucous Membranes, Other (NGT in place) Respiratory: No Accessory Muscle Use, No Respiratory Distress, Wheezing (Left upper lobe wheeze) Cardiovascular: No Murmur, Tachycardia (Slightly tachycardic in the low 100's) Gastrointestinal: soft, no organomegaly; No guarding, No rebound; tenderness (incisional, incisons c/di no signs of infection. ), other (melissa serous output scant w/o bile appearance, I did not see any erythema) Extremity: No Calf Tenderness, Pedal Edema Neurologic/Psychiatric: Alert, Oriented x3 Skin: Pallor Assessment/Plan Assessment/Plan Assessment/Plan Anemia - (nothing in MELISSA), she is currently getting 2Units PRBC S/P Open modified mian patch due to Duodenal perforation UTI Continue Pain Control, IV fluids, Flagyl/Rocephin/Diflucan Monitor MELISSA drain - Sersanguinous w/o bile tinge; 20 ml output Picc line placed two days ago I initially saw patient at 1201 and spoke to her for at least 30 minutes first I listened to her complaints she was very upset with Dr. Metz says she had a 2 page list and that she would be "[facility] She states that she was promised many things and may deal supposedly that she is supposed to have her test on Tuesday and then spoke with Julianne De Jesus which and was told to be Tuesday and neither 1 of those happened she is very upset about this. I listened to her go through her complaints and then when I tried to when I tried to answer when she asked me not to able to let her finish which I did and then when I started talking to try and answer what she was talking about she interrupted me I had asked her nicely I said please let me finish but she kept interrupting me. She was concerned because she is not getting nutrition and sta griselda she wanted "clear liquids". I tried to explain to her that of course clear liquids or not enough nutrition and the reason we cannot have her taking anything by mouth going in the stomach is because even water hitting the stomach will start the stomach moving acids and I would possibly interfere in the body repairing the duodenal perforation that she had. She went on to complain about no one listens or when she wanted the CAT scan first and everything was delayed because it could be done at the sooner and then no one has been listening to her she stated Dr. Metz would be malicious and not doing this and making her weight and we are medically holding her I told her that what we are trying to do is do the best thing for her and that it would take time there is no magic number it could be healed in 3 days it could be 5 days and she stated enterotomy this day was been 5 days since her surgery which was Tuesday today makes 5. I stated that is fine I we have done this before and there is no again no magic d ay we can do the upper GI today it might be good her or it might show a leak and the longer time that we let it heal the better will be she stated that was not acceptable she wanted the test done today. She stated that someone told her they could not do it today because of the not the right staff but she would like it done today. I told her that I would order this. I then sat in my office waiting for this to be done it got done and I was not completely happy with it I discussed this with the pet care technician as well as and I called the radiologist who had read the and then I waited around again for her to be repeated I have been waiting in my office for over an hour following getting this done and trying to coordinate this I also spoke with Dr. Metz. Supervisory-Addendum Brief Verification & Attestation Participated in pt care: history, MDM, physical Personally performed: exam, history, MDM, supervision of care Care discussed with: Medical Student Procedures: n/a Verification and Attestation of Medical Student E/M Service A medical student performed and documented this service. I then reviewed and verified all information documented by the medical student and made modifications to such information, when appropriate. I personally performed a physical exam, medical decision making and then discussed any differences between the notes and made revisions as necessary to create one note. Jemima Archer , 04/11/22 , 14:53 ADRIAN VANN Apr 11, 2022 08:46 JEMIMA ARCHER DO Apr 11, 2022 14:45
[2022-04-11] MEDS: ENOXAPARIN 40 MG/0.4 ML (LOVENOX) SYR SC SCH (10:17)
[2022-04-11] MEDS: NS IV 500 ML 500 ML IV SCH (11:17)
[2022-04-11] MEDS ORDERED: HOLD METFORMIN - RECEIVED CONTRAST 20 ML VIAL IV SCH (13:45)
[2022-04-11] MEDS ORDERED: IOHEXOL 350 MG/ML 100 ML (OMNIPAQUE 350) VIAL IV ONE (13:45)
--- NOTE | 2022-04-11 14:00 | Diagnostic Imaging Report ---
CLINICAL INDICATION: Patient had duodenal surgery 5 days ago, now looking for a duodenal leak. Exams: 1: Axial CT scan of the abdomen was performed with sagittal and coronal reformatted images. Images were obtained after the patient was given Omnipaque/water mixture 5 minutes prior to the scan. Enteric liquid was given via the NG tube. 2: Additional delayed CT imaging approximately one hour and 20 minutes later was performed to evaluate the duodenal region of concern. Sagittal and coronal reformatted images are created. COMPARISON: CT scan of the abdomen and pelvis with contrast on 04/06/2022. FINDINGS: There is a small right pleural effusion. There is patchy atelectasis versus infiltrates involving the right lung base. Minimal atelectasis involving the left lung base. The bones show no significant abnormality. There is a drain overlying the anterior abdominal region. There is minimal fluid adjacent to the liver. There is interval development of amorphous low-density involving the right and left lobes of the liver near the dome. This appears to have progressed compared to the prior CT scan. The gallbladder is surgically absent. The spleen, pancreas, and adrenal glands are unremarkable. Again seen are multiple nonobstructive stones involving both kidneys. There is increased density and calcification involving the bilateral medullary pyramids which may be seen with nephrocalcinosis. There is enteric contrast seen within the distal esophagus and stomach. There is a small amount in the 1st portion of the duodenum and very minimal in the 2nd portion of the duodenum. There is contrast seen within the 3rd and 4th portions of the duodenum. There is no evidence of contrast leak outside of the intestine. There is wall thickening involving the gastric antrum as well as the 1st and 2nd portions of the duodenum. There is no intra-abdominal free air. There is edema involving the extra-abdominal soft tissue. Additional delayed CT imaging: There is persistent thickening of the 1st and 2nd portion of the duodenum. There is no evidence of enteric contrast leakage from the duodenum. The previously seen contrast within the duodenum distally has progressed. There is also interval decrease enteric contrast within the stomach as well. The remainder of this exam has not changed in the interim. IMPRESSION: 1: There are postop changes to the abdomen, as described above. There is a small amount of free fluid adjacent to the liver. 2: There is no evidence of extraintestinal contrast leakage. There is no intra-abdominal free air. Additional delayed CT imaging showed no evidence of enteric contrast leakage from the region of the duodenum. 3: There is interval progression of amorphous low density involving the right and left lobes of the liver near the dome and inferiorly which may be from postop changes. If necessary, post contrast CT scan may help better evaluate. 4: Again seen are nonobstructive bilateral renal stones. There is medullary nephrocalcinosis again seen. Results of this report discussed with Dr. Castro with the telephone on 04/11/2022 near the time of this exam. Dictated by: Dictated on workstation # [id number]
[2022-04-11] MEDS: cefTRIAXone 1 GM/50 ML (PRE-MIX) IV SCH (15:27)
[2022-04-12] VITALS (7 sets, daily range): BP systolic 124–157; BP diastolic 79–90
[2022-04-12] MEDS: RT-ALBUTEROL SULF 2.5 MG/3 ML PRE-MIX VIAL INH SCH ×2 (03:20→10:40)
[2022-04-12] MEDS: metroNIDAZOLE 500MG/100ML IVPB 100 ML IV SCH ×3 (04:42→22:08)
[2022-04-12 04:57] LABS: BASOPHILS % (AUTO) 0 % (0-10); EOSINOPHILS # (AUTO) 0.2 10^3/uL (0.0-0.3); EOSINOPHILS % (AUTO) 2 % (0-10); HEMATOCRIT 29 % (35-52); HEMOGLOBIN 9.7 g/dL (11.5-16.0); LYMPHOCYTES # (AUTO) 1.6 10^3/uL (1.0-4.0); LYMPHOCYTES % (AUTO) 15 % (12-44); MEAN CORPUSCULAR HEMOGLOBIN 34 pg (25-34); MEAN CORPUSCULAR HGB CONC 34 g/dL (32-36); MEAN CORPUSCULAR VOLUME 99 fL (80-99); MONOCYTES # (AUTO) 1.5 10^3/uL (0.0-1.0); MONOCYTES % (AUTO) 14 % (0-12); NEUTROPHILS # (AUTO) 7.2 10^3/uL (1.8-7.8); NEUTROPHILS % (AUTO) 67 % (42-75); PLATELET COUNT 370 10^3/uL (130-400); WHITE BLOOD COUNT 10.7 10^3/uL (4.3-11.0)
[2022-04-12 05:15] LABS: ALANINE AMINOTRANSFERASE 14 U/L (0-55); ALBUMIN 2.1 GM/DL (3.2-4.5); ALKALINE PHOSPHATASE 120 U/L (40-136); BILIRUBIN,TOTAL 0.5 MG/DL (0.1-1.0); BUN/CREATININE RATIO 5; CALCIUM 7.4 MG/DL (8.5-10.1); CARBON DIOXIDE 19 MMOL/L (21-32); CHLORIDE 111 MMOL/L (98-107); CREATININE SERUM 0.43 MG/DL (0.60-1.30); GFR ESTIMATED 128; GLUCOSE 98 MG/DL (70-105); MAGNESIUM 1.4 MG/DL (1.6-2.4); POTASSIUM 2.7 MMOL/L (3.6-5.0); SODIUM 141 MMOL/L (135-145); TOTAL PROTEIN 4.8 GM/DL (6.4-8.2)
--- NOTE | 2022-04-12 07:38 | Progress Note - Surgery ---
MARAH CHAVESEB 04/12/22 0738: Subjective Date Seen by a Provider: Apr 12, 2022 Time Seen by a Provider: 06:35 Subjective/Events-last exam Pt was laying in bed resting before interview. Pt states that she is improving. Generalized constant achy abdominal pain consistent with 4/10 severity versus 5- 6/10 previously. States pain radiates toward her sides. Immobility makes pain worse, but improves w/ pain medication. Yesterday pt's NGT was discontinued, and pt received 2 units of blood. Pt has not had a bowel movement yet, but is passing gas. Tolerating clears. NGT output 1650 yesterday and 600ml since midnight; MELISSA output 20mL yesterday for a 24hr period, and today there was 50mL output w/ serosang consistency. Pt denies BOO, Fever, chills, chest pain, palpitations, n/v/d, and dysuria. Focused Exam Time of Focused Exam: 01:00 Objective Exam Vital Signs Date Time Temp Pulse Resp B/P (MAP) Pulse Ox O2 Delivery O2 Flow Rate FiO2 04/12/22 06:01 18 04/12/22 03:36 36.3 96 18 134/88 (103) 98 Room Air 0.00 0.00 04/12/22 03:20 99 Room Air 04/11/22 23:23 36.2 99 18 128/84 (99) 98 Room Air 0.00 0.00 04/11/22 21:09 99 Room Air 04/11/22 21:00 Room Air 04/11/22 20:33 36.3 84 18 147/77 99 Room Air 04/11/22 19:40 36.3 98 17 148/101 (117) 100 Room Air 04/11/22 19:00 18 04/11/22 16:45 36.7 98 119/83 97 Room Air 04/11/22 16:30 36.4 108 18 127/70 99 Room Air 04/11/22 16:15 36.7 100 19 139/94 (109) 99 Room Air 04/11/22 15:37 98 Room Air 04/11/22 14:26 36.5 103 164/88 99 Room Air 04/11/22 11:39 36.7 106 137/79 04/11/22 11:19 36.4 104 134/88 04/11/22 11:19 36.4 104 18 139/80 (99) 100 Room Air 04/11/22 10:02 36.1 18 04/11/22 09:14 98 Room Air 04/11/22 09:00 98 Room Air 0.00 04/11/22 07:51 36.1 101 18 166/70 (102) 99 Room Air I & O 04/12/22 07:00 Intake Total 1455 ml Output Total 3680 ml Balance -2225 ml Capillary Refill : Less Than 3 SecondsLess Than 3 Seconds General Appearance: No Apparent Distress, Chronically ill HEENT: PERRL/EOMI, Moist Mucous Membranes, Other (NGT in place) Neck: Non Tender, Supple; No Carotid Bruit, No Lymphadenopathy (L), No Lymphadenopathy (R), No Thyromegaly Respiratory: No Accessory Muscle Use, No Respiratory Distress, Wheezing (Left upper lobe wheeze) Cardiovascular: No Murmur, Tachycardia (Slightly tachycardic in the low 100's) Peripheral Pulses: 2+ Dorsalis Pedis (R), 2+ Left Dors-Pedis (L), 2+ Radial Pulses (R), 2+ Radial Pulses (L) Gastrointestinal: soft, no organomegaly; No guarding, No rebound; tenderness (i ncisional, incisons c/di no signs of infection. ), other (melissa serous output scant w/o bile appearance, I did not see any erythema) Extremity: No Calf Tenderness, Pedal Edema Neurologic/Psychiatric: Alert, Oriented x3 Skin: Pallor Lymphatic: No Adenopathy; No Axilla Node Tender (L), No Axilla Node Tender (R) Results Lab Laboratory Tests 04/11/22 07:39: Magnesium Level 1.4L 04/12/22 04:45: Magnesium Level 1.4L, Sodium Level 141, Potassium Level 2.7L, Chloride Level 111H, Carbon Dioxide Level 19L, Anion Gap 11, Blood Urea Nitrogen < 2L, Creatinine 0.43L, Estimat Glomerular Filtration Rate 128, BUN/Creatinine Ratio 5, Glucose Level 98, Calcium Level 7.4L, Corrected Calcium 8.9, Total Bilirubin 0.5, Aspartate Amino Transf (AST/SGOT) 16, Alanine Aminotransferase (ALT/SGPT) 14, Alkaline Phosphatase 120, Total Protein 4.8L, Albumin 2.1L Microbiology 04/06/22 MRSA Screen - Final, Complete MRSA not isolated 04/05/22 Wet Prep - Final, Complete 04/04/22 Blood Culture - Final, Complete No growth 04/04/22 Urine Culture - Final, Complete Escherichia coli See Comments Assessment/Plan Assessment/Plan Assessment/Plan Anemia S/P Open modified marvin patch due to Duodenal perforation UTI Protein Malnutrition- Albumin 2.1 Continue Pain Control, IV fluids, Flagyl/Rocephin/Diflucan Monitor Hgb; Transfuse accordingly; transfused 2 units yesterday. Monitor MELISSA drain - Sersanguinous w/o bile tinge; 20 ml output yesterday; Minimal today Picc line placed two days ago Consider Advancing Diet Consider Discharge; CT Abdomen No evidence of leakage in duodenum; Improved Pain; Hgb Improved from 6.7 to 9.7; WBC normalized Clinical Quality Measures DVT/VTE Risk/Contraindication: Contraindications-Pharm: Other *list below* Other: severe anemia DONNA WOLFF DO 04/12/222038: Subjective Subjective/Events-last exam Shaistatent feeling better this morning. Her NG tube was removed and has been started on clears. Ct scan no evidence of leak yesterday .MELISSA drain minimal output. Hgb stable. Passing flatus. No new compalints. Unable to use IS well, and using ocasionally. Objective Exam General Appearance: No Apparent Distress, Chronically ill HEENT: PERRL/EOMI, Moist Mucous Membranes Neck: Non Tender, Supple Respiratory: No Accessory Muscle Use, No Respiratory Distress Cardiovascular: Regular Rate, Rhythm, No JVD Gastrointestinal: soft, no organomegaly, tenderness (incisional, incisons c/di no signs of infection. ), other (melissa serous output scant w/o bile appearance) Extremity: No Calf Tenderness, Pedal Edema Neurologic/Psychiatric: Alert, Oriented x3 Skin: Normal Color, Warm/Dry Lymphatic: No Adenopathy Assessment/Plan Assessment/Plan Assessment/Plan S/P Open modified marvin patch due to Duodenal perforation UTI Protein Malnutrition- Albumin 2.1 Anemia Continue Pain Control, IV fluids, Monitor Hgb; Transfuse accordingly; transfused 2 units yesterday. Monitor MELISSA drain - Sersanguinous w/o bile tinge; 20 ml output yesterday; Minimal today Picc line placed two days ago Clear liquids today if no issues likely advance diet tomorrow Patient will need EGD outpatient in about 8 weeks to evaluate area of perforation. I was notified this afternoon that patient did not want to see me any longer by Jana Fernandes. She informed me Dr. Young will be taking over her care. Call if needed. Supervisory-Addendum Brief Verification & Attestation Participated in pt care: history, MDM, physical Personally performed: exam, history, MDM, supervision of care Care discussed with: Medical Student Procedures: n/a Results interpretation: Verified all documentation Verification and Attestation of Medical Student E/M Service A medical student performed and documented this service in my presence. I reviewed and verified all information documented by the medical student and made modifications to such information, when appropriate. I personally performed the physical exam and medical decision making. Donna Wolff, Apr 12, 2022,20:39 ERICK CHAVES Apr 12, 2022 07:38 DONNA WOLFF DO Apr 12, 2022 20:39
[2022-04-12] MEDS: PANTOPRAZOLE 40 MG (PROTONIX) VIAL IV SCH ×2 (09:26→20:40)
[2022-04-12] MEDS: MAGNESIUM 1 GM/100 ML IVPB 100 ML IV SCH ×2 (09:26→09:53)
[2022-04-12] MEDS: POTASSIUM CL 10MEQ/50ML IVPB 50 ML IV SCH ×8 (09:26→14:40)
[2022-04-12] MEDS: IRON SUCROSE 200 MG/10 ML (VENOFER) VIAL IV SCH (09:27)
[2022-04-12] MEDS: ENOXAPARIN 40 MG/0.4 ML (LOVENOX) SYR SC SCH (09:27)
--- NOTE | 2022-04-12 11:14 | Physical Therapy Evaluation ---
PT Evaluation-General Medical Diagnosis Admission Date Apr 05, 2022 at 01:20 Medical Diagnosis: severe sepsis Onset Date: Apr 05, 2022 Therapy Diagnosis Therapy Diagnosis: debility Height/Weight Height (Feet): 4 Height (Inches): 9.00 Weight (Pounds): 170 Weight (Ounces): 8.0 Precautions Precautions/Isolations: Fall Prevention, Standard Precautions Referral Physician: Noé Reason for Referral: Evaluation/Treatment Medical History Current History ER secondary to body aches, vomiting, anxiety, UTI Reviewed History: Yes Social History Home: Single Level Current Living Status: Spouse Entry Into Home: Stairs With Railing PT Steps Into Home: 3 Prior Prior Level of Function SCALE: Activities may be completed with or without assistive devices. 2-Mwydlenlso-qbxqexc completes the activity by him/herself with no assistance from a helper. 5-Set-up or Clean-up Assistance-helper sets up or cleans up; patient completes activity. [place] assists only prior to or following the activity. 4-Supervision or Touching Assistance-helper provides verbal cues and/or touching/steadying and/or contact guard assistance as patient completes activity. Assistance may be provided throughout the activity or intermittently. 3-Partial/Moderate Assistance-helper does LESS THAN HALF the effort. [place] lifts, holds or supports trunk or limbs, but provides less than half the effort. 2-Substantial/Maximal Assistance-helper does MORE THAN HALF the effort. [place] lifts or holds trunk or limbs and provides more than half the effort. 6-Jldnfndfo-xjgnjz does ALL the effort. Patient does none of the effort to complete the activity. Or, the assistance of 2 or more helpers is required for the patient to complete the activity. If activity was not attempted, code reason: 7-Patient Refused. 9-Not Applicable-not attempted and the patient did not perform the activity before the current illness, exacerbation or injury. 10-Not Attempted due to Environmental Limitations-(lack of equipment, weather restraints, etc.). 88-Not Attempted due to Medical Conditions or Safety Concerns. Bed Mobility: 6 Transfers (B,C,W/C): 6 Gait: 6 Stairs: 6 Indoor Mobility (Ambulation): Independent Stairs: Independent Prior Devices Use: None PT Evaluation-Current Subjective Patient agrees to PT. Objective Patient Orientation: Normal For Age Attachments: Central Line ROM/Strength ROM Lower Extremities bilateral LE WFL Strength Lower Extremities 5/5 grossly bilateral LE all planes Integumentary/Posture Bowel Incontinence: No Bladder Incontinence: No Posture WFL Neuromuscular (Tone, Coordination, Reflexes) grossly intact Sensory Vision: Functional Hearing: Functional Transfers Roll Left to Right (QC): 6 Sit to Lying (QC): 6 Lying to Sitting/Side of Bed(Q: 6 Sit to Stand (QC): 6 Chair/Vva-he-Tbtis Xfer(QC): 6 Gait Mode of Locomotion: Walk Anticipated Mode of Locomotion: Walk Walk 10 feet (QC): 6 Walk 50 ft with 2 Turns(QC): 6 Walk 150 ft (QC): 6 Distance: 500' Gait Assistive Device: FWW Comments/Gait Description safe and functional with no deviation Balance Sitting Static: Normal Sitting Dynamic: Normal Standing Static: Normal Standing Dynamic: Normal Assessment/Needs Patient is currently at independent LOF with all gross motor skills safely and does not require skilled PT intervention. Patient is safe to be up with family or nursing ambulating in hallway PRN. Rehab Potential: Good PT Plan Treatment/Plan Treatment Plan: Discontinue PT, goals met Treatment Duration: Apr 12, 2022 Frequency: 1 time per week Estimated Hrs Per Day: .25 hour per day Patient and/or Family Agrees t: Yes Time Time In: 1000 Time Out: 1010 DATE: Apr 12, 2022 Total Billed Treatment Time: 10 Total Billed Treatment 1 visit EVLowC 10 min AMADOR MENDOZA PT Apr 12, 2022 11:14
--- NOTE | 2022-04-12 11:48 | Progress Note - Hospitalist ---
PETE GONZALEZ 04/12/22 1147: Subjective HPI/CC On Admission Date Seen by Provider: Apr 12, 2022 Time Seen by Provider: 08:00 Severe sepsis, UTI, and duodenal perforation Subjective/Events-last exam Upon follow-up for sepsis, UTI, and duodenal perforation, S/P open modified marvin patch, and anemia, S/P 2 units of LRRBCs, Lavonne is laying supine in bed, with breakfast at bedside. She recently had her NG tube removed, and was switched to a clear liquid diet. Patient states that she is tolerating clears well, and has an appetite. She states her pain is minimal at a 4/10 today, and is able to ambulate to the commode and back independently. She further reports that she had a bowel movement this morning. Midline surgical incision is clean, dry, intact, and without erythema or purulence. Patient denies any nausea, vomiting, or dysuria. Review of Systems General: No Chills, No Night Sweats HEENT: No Head Aches Pulmonary: No Dyspnea, No Cough Cardiovascular: No: Chest Pain, Palpitations Gastrointestinal: Abdominal Pain; No: Nausea, Vomiting Genitourinary: No Dysuria, No Frequency Musculoskeletal: No: other, neck pain Neurological: No: Weakness, Numbness Focused Exam Time of Focused Exam: 01:00 Respiratory: Chest Non Tender, Lungs Clear, Normal Breath Sounds, No Accessory Muscle Use Cardiovascular: Regular Rate, Rhythm, No Edema, No Gallop, No JVD, No Murmur, Normal Peripheral Pulses Peripheral Pulses: 2+ Radial Pulses (R), 2+ Radial Pulses (L) Skin: normal color, warm/dry Objective Exam Vital Signs Vital Signs Date Time Temp Pulse Resp B/P (MAP) Pulse Ox O2 Delivery O2 Flow Rate FiO2 04/12/22 19:40 36.1 81 18 130/85 (100) 98 Room Air 04/12/22 18:06 21 04/12/22 09:00 0.00 Capillary Refill : Less Than 3 SecondsLess Than 3 Seconds General Appearance: No Apparent Distress, WD/WN HEENT: PERRL/EOMI, TMs Normal, Normal ENT Inspection, Pharynx Normal Neck: Full Range of Motion, Normal Inspection, Non Tender, Supple Respiratory: Chest Non Tender, Lungs Clear, Normal Breath Sounds, No Accessory Muscle Use, No Respiratory Distress Cardiovascular: Regular Rate, Rhythm, No Gallop, No JVD, No Murmur, Normal Peripheral Pulses Gastrointestinal: Normal Bowel Sounds, Soft, Tenderness (mild) Rectal: Deferred Extremity: Normal Capillary Refill, Normal Inspection, Normal Range of Motion Neurologic/Psychiatric: Alert, Oriented x3, No Motor/Sensory Deficits, Normal Mood/Affect, podopediatrician II-XII Norm as Tested Skin: Normal Color, Warm/Dry, Other (midline surgical incision with alida) Results/Procedures Lab Laboratory Tests 04/12/22 04:45 Patient resulted labs reviewed. Imaging: Reviewed Imaging Films, Reviewed Imaging Report Radiology Date of Exam:04/11/22 CT ABDOMEN WO CLINICAL INDICATION: Patient had duodenal surgery 5 days ago, now looking for a duodenal leak. Exams: 1: Axial CT scan of the abdomen was performed with sagittal and coronal reformatted images. Images were obtained after the patient was given Omnipaque/water mixture 5 minutes prior to the scan. Enteric liquid was given via the NG tube. 2: Additional delayed CT imaging approximately one hour and 20 minutes later was performed to evaluate the duodenal region of concern. Sagittal and coronal reformatted images are created. COMPARISON: CT scan of the abdomen and pelvis with contrast on 04/06/2022. FINDINGS: There is a small right pleural effusion. There is patchy atelectasis versus infiltrates involving the right lung base. Minimal atelectasis involving the left lung base. The bones show no significant abnormality. There is a drain overlying the anterior abdominal region. There is minimal fluid adjacent to the liver. There is interval development of amorphous low-density involving the right and left lobes of the liver near the dome. This appears to have progressed compared to the prior CT scan. The gallbladder is surgically absent. The spleen, pancreas, and adrenal glands are unremarkable. Again seen are multiple nonobstructive stones involving both kidneys. There is increased density and calcification involving the bilateral medullary pyramids which may be seen with nephrocalcinosis. There is enteric contrast seen within the distal esophagus and stomach. There is a small amount in the 1st portion of the duodenum and very minimal in the 2nd portion of the duodenum. There is contrast seen within the 3rd and 4th portions of the duodenum. There is no evidence of contrast leak outside of the intestine. There is wall thickening involving the gastric antrum as well as the 1st and 2nd portions of the duodenum. There is no intra-abdominal free air. There is edema involving the extra-abdominal soft tissue. Additional delayed CT imaging: There is persistent thickening of the 1st and 2nd portion of the duodenum. There is no evidence of enteric contrast leakage from the duodenum. The previously seen contrast within the duodenum distally has progressed. There is also interval decrease enteric contrast within the stomach as well. The remainder of this exam has not changed in the interim. IMPRESSION: 1: There are postop changes to the abdomen, as described above. There is a small amount of free fluid adjacent to the liver. 2: There is no evidence of extraintestinal contrast leakage. There is no intra-abdominal free air. Additional delayed CT imaging showed no evidence of enteric contrast leakage from the region of the duodenum. 3: There is interval progression of amorphous low density involving the right and left lobes of the liver near the dome and inferiorly which may be from postop changes. If necessary, post contrast CT scan may help better evaluate. 4: Again seen are nonobstructive bilateral renal stones. There is medullary nephrocalcinosis again seen. Results of this report discussed with Dr. Castro with the telephone on 04/11/2022 near the time of this exam. Assessment/Plan Assessment and Plan Assess & Plan/Chief Complaint Severe Sepsis, resolved UTI -Leukocytosis has resolved, WBC 10.7 -Alk Phos has normalized -On Flagyl, Difulcan, and Rocephin -Pain Control -Fluids Metabolic acidosis, resolved -AG normalized on 04/07 Duodenal perforation, S/P open modified marvin patch -NG tube discontinued on 04/11 -YAIMA drain, sero-sang, minimal output today -Clear liquid diet, tolerating well -Incentive Spirometer 10x/hr -Discussed continued ambulation to aid in recovery -CT on 04/11 demonstrated no duodenal leakage Anemia, S/P 2 units of leukocyte-reduced RBCs on 04/11/22 -Hemoglobin increased to 9.7 today from 6.7 on 04/11 -Continue to monitor H/H Hypokalemia Hypomagnesmia -On supplementation Clinical Quality Measures DVT/VTE Risk/Contraindication: Contraindications-Pharm: Other *list below* Other: severe anemia KAMI CHASE DO 04/13/22 0459: Supervisory-Addendum Brief Verification & Attestation Participated in pt care: history, MDM, physical Personally performed: exam, history, MDM, supervision of care Care discussed with: Medical Student Procedures: n/a Results interpretation: Verified all documentation Verification and Attestation of Medical Student E/M Service A medical student performed and documented this service in my presence. I reviewed and verified all information documented by the medical student and made modifications to such information, when appropriate. I personally performed the physical exam and medical decision making. Kami Chase, Apr 13, 2022,04:59 PETE GONZALEZ Apr 12, 2022 11:47 KAMI CHASE DO Apr 13, 2022 04:59
[2022-04-12] MEDS: FLUCONAZOLE 200 MG/100 ML 100 ML IV SCH ×2 (12:10→12:16)
--- NOTE | 2022-04-12 14:06 | Occupational Therapy Eval ---
OT Evaluation-General/PLF Medical Diagnosis Admission Date Apr 05, 2022 at 01:20 Medical Diagnosis: severe sepsis Onset Date: Apr 05, 2022 Therapy Diagnosis Therapy Diagnosis: weakness Height/Weight Height (Feet): 4 Height (Inches): 9.00 Weight (Pounds): 170 Weight (Ounces): 8.0 Precautions Precautions/Isolations: Fall Prevention, Standard Precautions Weight Bear Status Weight Bearing Restriction: Weight Bearing/Tolerated Referral Physician: Noé Referral Reason: Evaluation/Treatment Medical History Additional Medical History Anemia S/P Open modified marvin patch due to Duodenal perforation UTI Protein Malnutrition Current History Admission via ER with body aches, n/v, anxiety and UTI Reviewed History: Yes Social History Home: Single Level Current Living Status: Spouse Entry Into Home: Stairs With Railing Steps Into Home: 3 ADL-Prior Level of Function SCALE: Activities may be completed with or without assistive devices. 9-Rgtgmcsdun-zfsuslw completes the activity by him/herself with no assistance from a helper. 5-Set-up or Clean-up Assistance-helper sets up or cleans up; patient completes activity. [place] assists only prior to or following the activity. 4-Supervision or Touching Assistance-helper provides verbal cues and/or touching/steadying and/or contact guard assistance as patient completes activity. Assistance may be provided throughout the activity or intermittently. 3-Partial/Moderate Assistance-helper does LESS THAN HALF the effort. [place] li fts, holds or supports trunk or limbs, but provides less than half the effort. 2-Substantial/Maximal Assistance-helper does MORE THAN HALF the effort. [place] lifts or holds trunk or limbs and provides more than half the effort. 2-Vvjvwwjfq-alfeyx does ALL the effort. Patient does none of the effort to complete the activity. Or, the assistance of 2 or more helpers is required for the patient to complete the activity. If activity was not attempted, code reason: 7-Patient Refused. 9-Not Applicable-not attempted and the patient did not perform the activity before the current illness, exacerbation or injury. 10-Not Attempted due to Environmental Limitations-(lack of equipment, weather restraints, etc.). 88-Not Attempted due to Medical Conditions or Safety Concerns. 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 additional gown used as robe Eating (QC): 88 (liquid diet only.) Oral Hygiene (QC): 5 Shower/Bathe Self (QC): 7 (refused and reports performed herself, unable to verify) Upper Body Dressing (QC): 4 (d/t IV lines) Lower Body Dressing (QC): 6 On/Off Footwear (QC): 6 Toileting Hygiene (QC): 6 tearful and angry Education OT Patient Education: Correct positioning, Energy conservation, Modified ADL techniques, Progress toward Goal/Update tx plan, Purpose of tx/functional activities, Reviewed precautions, Safety issues, Transfer techniques, Use of adapted equipment Teaching Recipient: Patient Teaching Methods: Demonstration, Discussion Response to Teaching: Verbalize Understanding, Return Demonstration OT Interactive Digital Media Specialist Goals Interactive Digital Media Specialist Goals 1=Demonstrate adherence to instructed precautions during ADL tasks. 2=Patient will verbalize/demonstrate understanding of assistive devices/modifications for ADL. 3=Patient will improve strength/tolerance for activity to enable patient to perform ADL's. OT Education/Plan Problem List/Assessment Assessment: No Skilled OT Needs ID'd Discharge Recommendations Plan/Recommendations: Discontinue OT Therapy Discharge Recommendati: Home & Family Equpiment Recommendations-D/C: None Treatment Plan/Plan of Care Treatment,Training & Education: Yes Patient declines further OT for education, treatment and training to promote independence in ADL's, mobility, safety and/or upper extremity function for ADL' s. Plan of Care: OTHER (no further OT ) Comment No further OT indicated at this time Treatment Duration: Apr 12, 2022 Frequency: 1 time per week Estimated Hrs Per Day: .25 hour per day Agreement: Yes Rehab Potential: Good Time Start Time: 13:24 Stop Time: 13:44 DATE: Apr 12, 2022 Total Time Billed (hr/min): 20 Billed Treatment Time 1 visit EVL 1 20 min ELVER TRUJILLO OT Apr 12, 2022 14:06
[2022-04-12] MEDS: cefTRIAXone 1 GM/50 ML (PRE-MIX) IV SCH (15:43)
[2022-04-12] MEDS: NS IV 500 ML 500 ML IV SCH (16:23)
[2022-04-12] MEDS ORDERED: HYDROcodone/APAP 7.5 MG/325 MG (LORTAB, LORCET PLUS) TABLET PO PRN (21:15)
[2022-04-13 00:45] VITALS: BP 157/90
[2022-04-13 04:15] VITALS: BP 151/94
[2022-04-13 05:45] LABS: BASOPHILS % (AUTO) 0 % (0-10); EOSINOPHILS # (AUTO) 0.3 10^3/uL (0.0-0.3); EOSINOPHILS % (AUTO) 3 % (0-10); HEMATOCRIT 30 % (35-52); HEMOGLOBIN 10.2 g/dL (11.5-16.0); LYMPHOCYTES # (AUTO) 1.5 10^3/uL (1.0-4.0); LYMPHOCYTES % (AUTO) 15 % (12-44); MEAN CORPUSCULAR HEMOGLOBIN 34 pg (25-34); MEAN CORPUSCULAR HGB CONC 34 g/dL (32-36); MEAN CORPUSCULAR VOLUME 100 fL (80-99); MEAN PLATELET VOLUME 10.2 fL (9.0-12.2); MONOCYTES # (AUTO) 1.4 10^3/uL (0.0-1.0); MONOCYTES % (AUTO) 14 % (0-12); NEUTROPHILS # (AUTO) 6.5 10^3/uL (1.8-7.8); NEUTROPHILS % (AUTO) 66 % (42-75); PLATELET COUNT 402 10^3/uL (130-400); WHITE BLOOD COUNT 9.8 10^3/uL (4.3-11.0)
[2022-04-13] MEDS: metroNIDAZOLE 500MG/100ML IVPB 100 ML IV SCH (05:45)
[2022-04-13 06:07] LABS: ALANINE AMINOTRANSFERASE 11 U/L (0-55); ALBUMIN 2.1 GM/DL (3.2-4.5); ALKALINE PHOSPHATASE 103 U/L (40-136); BILIRUBIN,TOTAL 0.4 MG/DL (0.1-1.0); BUN/CREATININE RATIO 5; CALCIUM 7.5 MG/DL (8.5-10.1); CARBON DIOXIDE 21 MMOL/L (21-32); CHLORIDE 111 MMOL/L (98-107); CREATININE SERUM 0.42 MG/DL (0.60-1.30); GFR ESTIMATED 129; GLUCOSE 85 MG/DL (70-105); MAGNESIUM 1.3 MG/DL (1.6-2.4); POTASSIUM 3.3 MMOL/L (3.6-5.0); SODIUM 141 MMOL/L (135-145); TOTAL PROTEIN 4.6 GM/DL (6.4-8.2)
[2022-04-13 07:51] VITALS: BP 163/90
[2022-04-13] MEDS: FLUCONAZOLE 200 MG/100 ML 100 ML IV SCH (09:02)
[2022-04-13] MEDS: ENOXAPARIN 40 MG/0.4 ML (LOVENOX) SYR SC SCH (09:02)
[2022-04-13] MEDS: PANTOPRAZOLE 40 MG (PROTONIX) VIAL IV SCH (09:07)
[2022-04-13] MEDS ORDERED: KCL 20 MEQ TAB (K-DUR) PO NR (10:30)
[2022-04-13] MEDS ORDERED: AMOX1TAB12 PO (11:05)
[2022-04-13] MEDS ORDERED: PANT40TA2 PO (11:05)
[2022-04-13] MEDS ORDERED: HYDR-34 PO (11:05)
[2022-04-13] MEDS ORDERED: ONDA4TAB11 SL (11:05)
--- NOTE | 2022-04-13 11:06 | Discharge Summary ---
Discharge Summary Hospital Course Problems/Dx: (1) Severe sepsis Status: Acute (2) UTI (urinary tract infection) Status: Acute Qualifiers: Qualified Codes: N39.0 - Urinary tract infection, site not specified; R31.9 - Hematuria, unspecified (3) SOLITARIO (acute kidney injury) Status: Resolved (4) Hypertension Status: Acute (5) High anion gap metabolic acidosis Status: Resolved (6) Duodenal perforation Status: Acute (7) Hypophosphatemia Status: Acute Hospital Course Date of Admission: Apr 05, 2022 at 01:20 Admission Diagnosis : Family Physician/Provider: [facility] Date of Discharge: 04/13/22 Discharge Diagnosis: [ ] Hospital Course: Hospital Course: Lavonne Reyes is a 36 yo female with a history of HTN and colitis who presented to the [facility] ED on 04/04 for evaluation and management of nausea, vomiting, abdominal pain, and an episode of pre-syncope. Per ED (04/04/22) : Patient is a 36-year-old female who presents the emergency room with a chief complaint of body aches, abdominal pain mid epigastric and lower, nausea vomiting. Patient states that she has not stopped vomiting for 2 days. She was seen in February, labs and CAT scan, diagnosed with colitis, had a follow-up appointment at [facility] was put on new blood pressure medications. Continued to feel poorly and then had another ER visit 3 days ago had more labs and CT which showed urinary tract infection, acute kidney injury and significant leukocytosis. She was put on Macrobid. She states she is continue to feel worse and worse. No chest pain or shortness of breath. No cough. She denies fevers or chills. Significant abdominal cramping, taking her medication but having difficulty keeping it down. Only prior abdominal surgeries have been 3 C-sections. No allergies to medications. Nothing makes her pain any better or any worse. She states she has been tested for COVID recently and it has been negative. -CXR at this time was unremarkable Reason for visit/HPI Ms. Reyes is a 36 y/o female with a PMHx of HTN and colitis who presented to the [facility] ED on 04/04 with nausea, vomiting, abdominal pain, and an episode of pre- syncope. Patient states for the past 2-3 weeks she has been feeling unwell with abdominal pain and dizziness. Patient reports she was seen in late February and was diagnosed with colitis, treated with Flagyl. Patient was also seen in the [facility] ED on 04/04 with similar symptoms and was found to have a UTI, and treatment with Macrobid was initiated. Patient reports she has been compliant with her medications. The patient reports she has had increased nausea with vomiting for the past 2-3 days. In the ED, the patient's IUD was removed that had been in place since 2013. Patient denies abnormal vaginal discharge. Patient has been admitted to the Hospitalist service for management of severe sepsis secondary to UTI. Sepsis qualifiers include leukocytosis, tachycardia, lactic acidosis, and a known source of infection. 04/05/22 Lavonne was admitted for severe sepsis, metabolic acidosis, cervicitis, and UTI EICU consulted -Abdominal XR at this time was unremarkable 04/06/22 CT Abdomen demonstrated new intraperitoneal air, concerning for rupture of hollow viscus and new small volume ascites General Surgery was consulted due to the above findings -Dr. Metz took patient to OR for exploratory laparotomy, upon which a duodenal perforation was noted -Procedure was converted to open for placement of modified marvin patch 04/07/22 - 04/10/22 Surgical recovery NPO 04/12/22 PT and OT were consulted 04/11/22 Hemoglobin noted to be 6.7 -2 units of LRRBCS were transfused -Hemoglobin increased to 9.7. CT abdomen/pelvis to assess for duodenal leakage, with no leakage noted NG tube was discontinued Started a clear liquid diet, which was tolerated well 04/13/22 Advanced to regular diet, which was tolerated well PETE GONZALEZ Labs and Pending Lab Test: Laboratory Tests 04/12/22 13:03: Lab Scanned Report Transfusion Reaction Form 04/13/22 05:42: White Blood Count 9.8, Red Blood Count 3.01L, Hemoglobin 10.2L, Hematocrit 30L, Mean Corpuscular Volume 100H, Mean Corpuscular Hemoglobin 34, Mean Corpuscular Hemoglobin Concent 34, Red Cell Distribution Width , Platelet Count 402H, Mean Platelet Volume 10.2, Immature Granulocyte % (Auto) 1, Neutrophils (%) (Auto) 6 6, Lymphocytes (%) (Auto) 15, Monocytes (%) (Auto) 14H, Eosinophils (%) (Auto) 3, Basophils (%) (Auto) 0, Neutrophils # (Auto) 6.5, Lymphocytes # (Auto) 1.5, Monocytes # (Auto) 1.4H, Eosinophils # (Auto) 0.3, Basophils # (Auto) 0.0, Immature Granulocyte # (Auto) 0.1, Sodium Level 141, Potassium Level 3.3L, Ch loride Level 111H, Carbon Dioxide Level 21, Anion Gap 9, Blood Urea Nitrogen < 2L, Creatinine 0.42L, Estimat Glomerular Filtration Rate 129, BUN/Creatinine Ratio 5, Glucose Level 85, Calcium Level 7.5L, Corrected Calcium 9.0, Magnesium Level 1.3L, Total Bilirubin 0.4, Aspartate Amino Transf (AST/SGOT) 14, Alanine Aminotransferase (ALT/SGPT) 11, Alkaline Phosphatase 103, Total Protein 4.6L, Albumin 2.1L Microbiology 04/06/22 MRSA Screen - Final, Complete MRSA not isolated 04/05/22 Wet Prep - Final, Complete 04/04/22 Blood Culture - Final, Complete No growth 04/04/22 Urine Culture - Final, Complete Escherichia coli See Comments Home Meds Active Amox Tr-K Clv 875-125 mg Tab (Amoxicillin/Potassium Clav) 875 Mg-125 Mg Tablet 1 Each PO BID Protonix (Pantoprazole Sodium) 40 Mg Tablet.dr 40 Mg PO BID HYDROcodone/APAP 7.5/325 TAB (Acetaminophen/Hydrocodone Bitart) 1 Ea Tablet 1 Ea PO Q4H PRN Ondansetron Odt (Ondansetron) 4 Mg Tab.rapdis 4 Mg SL Q4H PRN Reported Ibuprofen 200 Mg Tablet 400-600 Mg PO Q8H PRN Tylenol Extra Strength (Acetaminophen) 500 Mg Tablet 1,000 Mg PO Q8H PRN Lisinopril-Hctz 10-12.5 mg Tab (Lisinopril/Hydrochlorothiazide) 10 Mg-12.5 Mg Tablet 1 Each PO DAILY Nitrofurantoin (Nitrofurantoin Macrocrystal) 100 Mg Capsule 100 Mg PO BID FILLED 04-01-2022 #14/ DAY SUPPLY Assessment/Pt Instructions PCP this week Dr Young this week for drain Discharge Planning: <30 minutes discharge planning Discharge Instructions Discharge Diet: No Restrictions Discharge Physical Examination Vital Signs Vital Signs Date Time Temp Pulse Resp B/P (MAP) Pulse Ox O2 Delivery O2 Flow Rate FiO2 04/13/22 07:51 36.7 83 18 163/90 (114) 96 Room Air 04/12/22 18:06 21 04/12/22 09:00 0.00 General Appearance: No Apparent Distress, WD/WN, Chronically ill Respiratory: Lungs Clear, Normal Breath Sounds Cardiovascular: Regular Rate, Rhythm Neurologic/Psychiatric: Alert, Oriented x3, No Motor/Sensory Deficits, Normal Mood/Affect Allergies: Coded Allergies: No Known Drug Allergies (Verified , 12/13/07) Discharge Summary Date of Admission Apr 05, 2022 at 01:20 Date of Discharge Discharge Date: Apr 13, 2022 Discharge Diagnosis Assessment: Severe sepsis Perforated duodenal ulcer Metabolic acidosis Anemia Hypokalemia Hypomagnesemia Irritable mood Plan: DC telemetry IVF Fourth floor Transfuse today Replace potassium (1) Severe sepsis Status: Acute Assessment & Plan: Severe sepsis qualifiers: leukocytosis of 24.9, tachycardia, lactic acidosis 2.03 -> 1.92, source of infection likely UTI -Sepsis is likely secondary to UTI -Rocephin 1 gm -AM CBC, BMP (2) UTI (urinary tract infection) Status: Acute Assessment & Plan: Severe sepsis qualifiers: leukocytosis of 24.9, tachycardia, lactic acidosis 2.03 -> 1.92, source of infection UTI -Sepsis is likely secondary to UTI -Rocephin 1gm -Monitor urine output -Continue IVF with sodium chloride, 1000mls @ 150mls/hr. Monitor for signs of fluid retention, eg peripheral edema -AM CBC, BMP Qualifiers: Qualified Codes: N39.0 - Urinary tract infection, site not specified; R31.9 - Hematuria, unspecified (3) SOLITARIO (acute kidney injury) Status: Resolved Assessment & Plan: Cr 1.15, BUN 23 on 04/05 -> resolved on 04/06. Cr 0.78, BUN 7 -Continue to monitor with AM BMP -Monitor urine output -Continue IVF with sodium chloride 1000ml @ 150mls/hr (4) Hypertension Status: Acute Assessment & Plan: -Continue to monitor BP -Medication reconciliation and restart home medications as long as BP is stable (5) High anion gap metabolic acidosis Status: Resolved Assessment & Plan: Anion gap of 23 on 04/05 -> 15 on 04/06 -> 13 on 04/07 resolved -Likely secondary to lactic acidosis, possibly uremia -Patient denies recent alcohol consumption or consumption of any substances -Continue to monitor with AM BMP -Continue IVF (6) Duodenal perforation Status: Acute Assessment & Plan: Appreciate plan per Surgery -Operative management on 04/06 -Flagyl 500mg -Resume lovenox on 04/07 -Transition to PO pain management -NGT in place for decompression -SCDs in place -Transition to fourth floor (7) Hypophosphatemia Status: Acute Assessment & Plan: Continue to replace with potassium phosphate Monitor with AM labs Clinical Quality Measures DVT/VTE Risk/Contraindication: Contraindications-Pharm: Other *list below* Other: severe anemia PAM CHASE DO Apr 13, 2022 11:06
--- NOTE | 2022-04-13 12:01 | Progress Note ---
PETE GONZALEZ 04/13/22 1201: Progress Note Hospital Course: Lavonne Reyes is a 36 yo female with a history of HTN and colitis who presented to the [facility] ED on 04/04 for evaluation and management of nausea, vomiting, abdominal pain, and an episode of pre-syncope. Per ED (04/04/22) : Patient is a 36-year-old female who presents the emergency room with a chief complaint of body aches, abdominal pain mid epigastric and lower, nausea vomiting. Patient states that she has not stopped vomiting for 2 days. She was seen in February, labs and CAT scan, diagnosed with colitis, had a follow-up appointment at [facility] was put on new blood pressure medications. Continued to feel poorly and then had another ER visit 3 days ago had more labs and CT which showed urinary tract infection, acute kidney injury and significant leukocytosis. She was put on Macrobid. She states she is continue to feel worse and worse. No chest pain or shortness of breath. No cough. She denies fevers or chills. Significant abdominal cramping, taking her medication but having difficulty keeping it down. Only prior abdominal surgeries have been 3 C-sections. No allergies to medications. Nothing makes her pain any better or any worse. She states she has been tested for COVID recently and it has been negative. -CXR at this time was unremarkable Reason for visit/HPI Ms. Reyes is a 36 y/o female with a PMHx of HTN and colitis who presented to the [facility] ED on 04/04 with nausea, vomiting, abdominal pain, and an episode of pre- syncope. Patient states for the past 2-3 weeks she has been feeling unwell with abdominal pain and dizziness. Patient reports she was seen in late February and was diagnosed with colitis, treated with Flagyl. Patient was also seen in the [facility] ED on 04/04 with similar symptoms and was found to have a UTI, and treatment with Macrobid was initiated. Patient reports she has been compliant with her medications. The patient reports she has had increased nausea with vomiting for the past 2-3 days. In the ED, the patient's IUD was removed that had been in place since 2013. Patient denies abnormal vaginal discharge. Patient has been admitted to the Hospitalist service for management of severe sepsis secondary to UTI. Sepsis qualifiers include leukocytosis, tachycardia, lactic acidosis, and a known source of infection. 04/05/22 Lavonne was admitted for severe sepsis, metabolic acidosis, cervicitis, and UTI EICU consulted -Abdominal XR at this time was unremarkable 04/06/22 CT Abdomen demonstrated new intraperitoneal air, concerning for rupture of hollow viscus and new small volume ascites General Surgery was consulted due to the above findings -Dr. Metz took patient to OR for exploratory laparotomy, upon which a duodenal perforation was noted -Procedure was converted to open for placement of modified marvin patch 04/07/22 - 04/10/22 Surgical recovery NPO 04/12/22 PT and OT were consulted 04/11/22 Hemoglobin noted to be 6.7 -2 units of LRRBCS were transfused -Hemoglobin increased to 9.7. CT abdomen/pelvis to assess for duodenal leakage, with no leakage noted NG tube was discontinued Started a clear liquid diet, which was tolerated well 04/13/22 Advanced to regular diet, which was tolerated well KAMI CHASE DO 04/14/22 0512: Supervisory-Addendum Brief Verification & Attestation Participated in pt care: history, MDM, physical Personally performed: exam, history, MDM, supervision of care Care discussed with: Medical Student Procedures: n/a Results interpretation: Verified all documentation Verification and Attestation of Medical Student E/M Service A medical student performed and documented this service in my presence. I reviewed and verified all information documented by the medical student and made modifications to such information, when appropriate. I personally performed the physical exam and medical decision making. Kami Chase, Apr 14, 2022,05:12 PETE GONZALEZ Apr 13, 2022 12:01 KAMI CHASE DO Apr 14, 2022 05:12
[2022-04-13] MEDS ORDERED: KCL 20 MEQ TAB (K-DUR) PO SCH (13:00)
== END 2022-04-13 12:43 | disposition home or self-care (01) | DRG 853 ==
LOC: EDUNIT# 22:11 → ER 22:14 → ICU 04-05 01:20 → 4TH 04-05 14:03 → ICU 04-06 11:50 → 4TH 04-08 11:56
PROVIDERS: ADMIT Internal Medicine; ATTEND Internal Medicine
PROC: 0WJG4ZZ Inspection of Peritoneal Cavity, Percutaneous Endoscopic Approach (ICD-10-PCS; 2022-04-06)
PROC: 0DU907Z Supplement Duodenum with Autologous Tissue Substitute, Open Approach (ICD-10-PCS; principal; 2022-04-06 09:15)
DX: A41.51 Sepsis due to Escherichia coli [E. coli] (principal); K26.5 Chronic or unspecified duodenal ulcer with perforation; R65.21 Severe sepsis with septic shock; K65.9 Peritonitis, unspecified; N39.0 Urinary tract infection, site not specified; N17.9 Acute kidney failure, unspecified; E87.20 Acidosis, unspecified; R18.8 Other ascites; N72 Inflammatory disease of cervix uteri; E86.0 Dehydration; I10 Essential (primary) hypertension; E83.42 Hypomagnesemia; E87.6 Hypokalemia; D64.9 Anemia, unspecified; E83.39 Other disorders of phosphorus metabolism
CPT/HCPCS: 36415; 36569; 71045; 74019; 74150; 74176; 76937; 80053; 80320; 80329; 81000; 82607; 83540; 83605; 83690; 83735; 84100; 84703; 85007; 85025; 85027; 85610; 85730; 86850; 86900; 86901; 86920; 87040; 87077; 87081; 87088; 87210; 87491; 87591; 94640; 94664; 94760; 96361; 96374; 96375

== ENCOUNTER 2022-05-12 05:31 | Outpatient (CLI) | payer MEDICAID ==
[~2022-05-12] VITALS: Ht 144.8 cm; Wt 63.5 kg
[~2022-05-12 05:31] MED LIST changes: +ACET-2267 PO; +AMOX1TAB12 PO; +HYDR-34 PO; +IBUP-2473 PO; +PANT40TA2 PO
== END 2022-05-12 08:41 | disposition home or self-care (01) ==
LOC: PREOP 05:31
PROVIDERS: ATTEND Surgery
DX: Z01.818 Encounter for other preprocedural examination (principal)

== ENCOUNTER 2022-05-19 08:11 | Day surgery (SDC) | payer MEDICAID ==
[~2022-05-19] VITALS: Ht 144.8 cm; Wt 63.5 kg
[2022-05-19] MEDS ORDERED: LACTATED RINGERS 1,000 ML IV ONE (08:37)
[2022-05-19] MEDS ORDERED: LACTATED RINGERS 1,000 ML IV STA (09:48)
[2022-05-19 10:00] VITALS: BP 156/118
[2022-05-19] MEDS ORDERED: HURRICAINE EXT TUBE (BENZOCAINE) XX PRN (10:00)
[2022-05-19] MEDS ORDERED: LIDOCAINE JELLY 2% 6 ML SYRINGE MM PRN (10:00)
[2022-05-19] MEDS ORDERED: PROPOFOL INJECTION 50 ML IV ONE (10:04)
--- NOTE | 2022-05-19 10:13 | Progress Note-Pre Operative ---
Pre-Operative Progress Note Date of Available H&P: May 19, 2022 Date H&P Reviewed: May 19, 2022 Time H&P Reviewed: 09:45 History & Physical: No changes noted Pre-Operative Diagnosis: hx perforated duodenal ulcer NEFTALI MA MD May 19, 2022 10:13
[2022-05-19] MEDS ORDERED: fentaNYL INJ 100 MCG/2 ML AMP IVP PRN (10:15)
[2022-05-19] MEDS ORDERED: ONDANSETRON 4 MG (ZOFRAN) ORAL DISSOLVE TAB PO PRN (10:15)
[2022-05-19] MEDS ORDERED: ONDANSETRON 4 MG/2 ML (SDV) Z0FRAN IVP PRN (10:15)
--- NOTE | 2022-05-19 10:15 | Discharge Inst-Surgical ---
D/C Lap Instructions-RFANCESCA Follow Up Activity as tolerated High Fiber Diet 25g or more per day Avoid Alcohol, Caffeine, Spicy Sproul and Acid foods. Drink 64 fluid oz or more of fluids per day. Symptoms to Report: Fever over 101 degree F, Nausea/Vomiting If any problems/questions: Contact your physician or go to Emergency Room NEFTALI MA MD May 19, 2022 10:15
[2022-05-19] MEDS ORDERED: LIDOCAINE JELLY 2% 6 ML SYRINGE ONE (10:28)
[2022-05-19 10:50] VITALS: BP 146/88
--- NOTE | 2022-05-19 11:01 | Progress Note-Post Operative ---
Post-Operative Progess Note Surgeon (s)/Optical Effects Layout Person (s) Surgeon NEFTALI MA MD Optical Effects Layout Person: none Pre-Operative Diagnosis hx perforated duodenal ulcer Post-Operative Diagnosis reflux esophagitis(grade B-C), small HH(2cm), moderate gastritis, healed 1st portion duodenal ulcer. Procedure & Operative Findings Date of Procedure 05/19/22 Procedure Performed/Findings EGD with bx. Anesthesia Type mac Estimated Blood Loss Estimated blood loss (mL): minimal Specimens/Packing Specimens Removed ge jxn, antrum NEFTALI MA MD May 19, 2022 11:01
[2022-05-19 11:10] VITALS: BP 158/91
--- NOTE | 2022-05-19 14:56 | Anesthesia-General Post-Op ---
MAC Patient Condition Mental Status/LOC: Same as Preop Cardiovascular: Satisfactory Nausea/Vomiting: Absent Respiratory: Satisfactory Pain: Controlled Complications: Absent Post Op Complications Complications None Follow Up Care/Instructions Patient Instructions None needed. Anesthesiology Discharge Order Discharge Order Patient is doing well, no complaints, stable vital signs, no apparent adverse anesthesia problems. No complications reported per nursing. CURTIS TATE CRNA May 19, 2022 14:56
--- NOTE | 2022-05-19 15:23 | OPERATIVE REPORT ---
DATE OF SERVICE: 05/19/2022 ATTENDING ADMINISTRATIVE ASSISTANT OFFICE MANAGER: [facility]. PREOPERATIVE DIAGNOSES: History of perforated duodenal ulcer 04/05/2022. POSTOPERATIVE DIAGNOSES: Reflux esophagitis, [place] grade B, small hiatal hernia, 2 cm in size, moderate gastritis, healed duodenal ulcer. PROCEDURE: EGD with biopsy. SURGEON: Neftali Ma MD ANESTHESIA: Monitored anesthesia care. ESTIMATED BLOOD LOSS: Minimal. FINDINGS: Reflux esophagitis, [place] grade B, small hiatal hernia, 2 cm in size, moderate gastritis, healed duodenal ulcer. DISPOSITION: The patient tolerated the procedure well. INDICATIONS: The patient is a 36-year-old female who developed right upper abdominal quadrant pain, presented to the emergency department on 04/05/2022. She had also reported episodes of nausea and vomiting for multiple weeks and had been taking Tylenol as well as ibuprofen. A CT scan was performed, which did show free air in the peritoneal cavity as well as ascites. She underwent a laparotomy and was found to have perforated duodenal ulcer and underwent Mian patch placement as well as intraperitoneal drain placement. Since being discharged, the drains have been removed and she is here for her 8-week followup EGD and biopsies to rule out Helicobacter pylori. PROCEDURE DESCRIPTION OF PROCEDURE: The patient was brought to the endoscopy suite and laid in the left lateral decubitus position. After adequate IV pain and sedative medications and monitored anesthesia care, the mouthpiece was applied. The endoscope was then placed in the mouth, visualizing the pharynx and hypopharyngeal region. Vocal cords, epiglottis and vallecula identified and appeared to be normal. The endoscope was then gently intubated into the esophageal opening and esophagus insufflated. The endoscope was then advanced through the first, second, third portions of esophagus. At the level of the GE junction, reflux esophagitis, [place] grade B to C identified. No strictures identified. A biopsy was taken with forceps with visualization of good hemostasis. The endoscope was then advanced into the stomach and the endoscope retroflexed visualizing small hiatal hernia approximately 2 cm in size. There was a moderate severity gastritis. No gastric ulceration. A biopsy was taken of the antrum to rule out H. pylori with visualization of good hemostasis. The endoscope was then advanced through the pylorus and the first and second portions of the duodenum. At the first portion of the duodenum, an area of granulomatous tissue and what appeared to be a healed duodenal ulceration was identified. The endoscope was then advanced to the second portion of the duodenum, which appeared normal. No obstructions were identified. The endoscope was then slowly withdrawn while taking second look and suctioning of residual air with no additional findings. The patient tolerated the procedure well. We will recommend continued medical management for peptic ulcer disease, which would encompass smoking cessation as well as avoidance of caffeinated beverages, spicy, greasy and acidic foods and to take in small and more frequent meals, avoidance of eating at night. She also needs to continue to take Protonix 40 daily. We will also await the biopsy results from the possibility of Helicobacter pylori, which is responsible for 90% of the duodenal ulcers. If this is the case, we will start her on a regimen of antibiotics for eradication of the Helicobacter pylori. We will have her follow up in the office in 2 weeks. Job ID: [id number] DocumentID: [id number] Dictated Date: 05/19/2022 10:55:03 Boring Machine Set Up Operator Date: 05/19/2022 15:19:00 Dictated By: NEFTALI MA MD
== END 2022-05-19 11:26 | disposition home or self-care (01) ==
LOC: ENDO 08:11
PROVIDERS: ATTEND Surgery
DX: Z09 Encounter for follow-up examination after completed treatment for conditions other than malignant neoplasm (principal); K21.00 Gastro-esophageal reflux disease with esophagitis, without bleeding; K44.9 Diaphragmatic hernia without obstruction or gangrene; K29.70 Gastritis, unspecified, without bleeding; K31.89 Other diseases of stomach and duodenum; Z87.11 Personal history of peptic ulcer disease; Z79.899 Other long term (current) drug therapy; Z87.891 Personal history of nicotine dependence
CPT/HCPCS: 88305